=== PATIENT | male | born 1950 | race Caucasian/White ===

== ENCOUNTER → 2016-07-12 | Outpatient (CLI) | payer MEDICARE ==
[2016-07-12 08:51] LABS: Basophils # (A) 0.1 k/uL (0-0.2); Basophils % (A) 1 %; CH 30.7; CHCM 33.2; Eosinophils # (A) 0.4 k/uL (0-0.7); Eosinophils % (A) 6 %; HCT 34.2 % (39.0-53.0); HDW 2.42; HGB 11.3 gm/dL (13.0-17.5); Luc # (Auto) 0.12; Luc % (Auto) 2; Lymphocytes # (A) 1.5 k/uL (1.0-4.8); Lymphocytes % (A) 23 %; MCH 30.6 pg (25.0-35.0); MCHC 32.9 g/dL (31.0-37.0); MCV 92.9 fL (80.0-100.0); Mean Platelet Volume 7.3; Monocytes # (A) 0.4 k/uL (0-1.0); Monocytes % (A) 6 %; Neutrophils # (A) 4.1 k/uL (1.3-7.7); Neutrophils % (A) 62 %; RBC 3.69 m/uL (4.30-5.90); RDW 13.3 % (11.5-15.5); WBC 6.7 k/uL (3.8-10.6); WBC (Perox) 7.33
[2016-07-12 08:56] LABS: Appearance,Urine Clear (Clear); Bilirubin,Urine Negative (Negative); Glucose,Urine (UA) Negative (Negative); Ketones,Urine Negative (Negative); Leukocyte Esterase,Urine Negative (Negative); Nitrite,Urine Negative (Negative); Particle Count 676; Protein,Urine 2+ (Negative); Squamous Epithelial Cell,Urine <1 /hpf (0-4); UA Billing (MACRO vs. MICRO) MICRO; Urobilinogen,Urine <2.0 mg/dL (<2.0); WBC,Urine <1 /hpf (0-5)
[2016-07-12 13:35] LABS: Magnesium 2.1 mg/dL (1.6-2.3); Phosphorous 4.2 mg/dL (2.5-4.5); Potassium 4.5 mmol/L (3.5-5.1); Uric Acid 5.3 mg/dL (3.5-8.5)
[2016-07-12 13:45] LABS: % Iron Saturation 17.3 % (20-50)
== END ==
LOC: LABWHC1 08:00
PROVIDERS: ATTEND Nurse Practitioner Family
DX: N18.3 Chronic kidney disease, stage 3 (moderate) (principal); D64.9 Anemia, unspecified; E55.9 Vitamin D deficiency, unspecified; E21.3 Hyperparathyroidism, unspecified; M10.9 Gout, unspecified; N39.0 Urinary tract infection, site not specified
CPT/HCPCS: 36415; 80048; 81001; 82728; 83540; 83550; 83735; 83970; 84100; 84550; 85025

== ENCOUNTER → 2016-12-06 | Outpatient (CLI) | payer MEDICARE ==
[2016-12-06 08:46] LABS: Appearance,Urine Clear (Clear); Bacteria,Urine Rare /hpf; Bilirubin,Urine Negative (Negative); Glucose,Urine (UA) 1+ (Negative); Ketones,Urine Negative (Negative); Leukocyte Esterase,Urine Negative (Negative); Mucus,Urine Rare /hpf; Nitrite,Urine Negative (Negative); PH, Urine 5.5 (5.0-8.0); Particle Count 403; Protein,Urine 2+ (Negative); Specific Gravity,Urine 1.009 (1.001-1.035); UA Billing (MACRO vs. MICRO) MICRO; Urobilinogen,Urine <2.0 mg/dL (<2.0); WBC,Urine <1 /hpf (0-5)
[2016-12-06 08:58] LABS: Basophils # (A) 0.1 k/uL (0-0.2); Basophils % (A) 1 %; CH 31.2; CHCM 32.4; Eosinophils # (A) 0.4 k/uL (0-0.7); Eosinophils % (A) 7 %; HDW 2.36; HGB 12.2 gm/dL (13.0-17.5); Luc # (Auto) 0.14; Luc % (Auto) 3; Lymphocytes # (A) 1.3 k/uL (1.0-4.8); Lymphocytes % (A) 24 %; MCH 30.4 pg (25.0-35.0); MCHC 31.3 g/dL (31.0-37.0); Mean Platelet Volume 8.2; Monocytes # (A) 0.4 k/uL (0-1.0); Monocytes % (A) 8 %; Neutrophils # (A) 3.1 k/uL (1.3-7.7); Neutrophils % (A) 57 %; RBC 4.02 m/uL (4.30-5.90); RDW 13.7 % (11.5-15.5); WBC 5.5 k/uL (3.8-10.6); WBC (Perox) 5.94
[2016-12-06 10:22] LABS: Calcium 9.2 mg/dL (8.4-10.2); Phosphorous 3.7 mg/dL (2.5-4.5); Potassium 4.6 mmol/L (3.5-5.1); Uric Acid 5.7 mg/dL (3.5-8.5)
[2016-12-06 10:31] LABS: % Iron Saturation 28.9 % (20-50)
[2016-12-06 16:33] LABS: Urine Creatinine 53.2 mg/dL
== END | disposition home or self-care (01) ==
LOC: LABWHC1 08:11
PROVIDERS: ATTEND Nurse Practitioner Family
DX: N18.3 Chronic kidney disease, stage 3 (moderate) (principal); D64.9 Anemia, unspecified; E10.21 Type 1 diabetes mellitus with diabetic nephropathy; E55.9 Vitamin D deficiency, unspecified; E21.3 Hyperparathyroidism, unspecified; M10.9 Gout, unspecified; N39.0 Urinary tract infection, site not specified
CPT/HCPCS: 36415; 80048; 81001; 82043; 82306; 82570; 82728; 83540; 83550; 83735; 83970; 84100; 84550; 85025

== ENCOUNTER → 2017-04-12 | Outpatient (CLI) | payer MEDICARE ==
[2017-04-12 10:11] LABS: T4, Free (Free Thyroxine) 1.08 ng/dL (0.78-2.19)
[2017-04-12 18:40] LABS: Hemoglobin A1C 6.6 % (4.0-6.0)
== END | disposition home or self-care (01) ==
LOC: LABWHC1 08:53
PROVIDERS: ATTEND Internal Medicine
DX: E10.9 Type 1 diabetes mellitus without complications (principal)
CPT/HCPCS: 36415; 80061; 83036; 84439; 84443

== ENCOUNTER → 2017-06-12 | Outpatient (CLI) | payer MEDICARE ==
[2017-06-12 09:17] LABS: Phosphorus 3.9 mg/dL (2.5-4.5); Potassium 5.1 mmol/L (3.5-5.1); Uric Acid 5.5 mg/dL (3.5-8.5)
[2017-06-12 09:20] LABS: Basophils # (A) 0.1 k/uL (0-0.2); Basophils % (A) 1 %; Eosinophils # (A) 0.4 k/uL (0-0.7); Eosinophils % (A) 7 %; HCT 38.9 % (39.0-53.0); Lymphocytes # (A) 1.2 k/uL (1.0-4.8); Lymphocytes % (A) 20 %; MCH 29.8 pg (25.0-35.0); MCHC 30.8 g/dL (31.0-37.0); MCV 96.7 fL (80.0-100.0); Monocytes # (A) 0.4 k/uL (0-1.0); Monocytes % (A) 7 %; Neutrophils # (A) 3.7 k/uL (1.3-7.7); Neutrophils % (A) 63 %; Platelet Count 319 k/uL (150-450); RBC 4.02 m/uL (4.30-5.90); WBC 5.9 k/uL (3.8-10.6)
[2017-06-12 09:45] LABS: Appearance,Urine Clear (Clear); Bilirubin,Urine Negative (Negative); Blood,Urine Trace (Negative); Color,Urine Yellow; Glucose,Urine (UA) Negative (Negative); Ketones,Urine Negative (Negative); Leukocyte Esterase,Urine Negative (Negative); Protein,Urine 2+ (Negative); RBC,Urine <1 /hpf (0-5); Specific Gravity,Urine 1.013 (1.001-1.035); Urobilinogen,Urine <2.0 mg/dL (<2.0); WBC,Urine <1 /hpf (0-5)
[2017-06-12 11:39] LABS: Creatinine,Urine Random 102.9 mg/dL
[2017-06-12 17:06] LABS: Iron Saturation 16.42 (15.00-50.00)
[2017-06-12 17:53] LABS: Parathyroid Hormone Intact 69.9 pg/mL (14.0-72.0)
== END | disposition home or self-care (01) ==
LOC: LABWHC1 08:12
PROVIDERS: ATTEND Internal Medicine Nephrology
DX: N18.3 Chronic kidney disease, stage 3 (moderate) (principal); D50.9 Iron deficiency anemia, unspecified; E55.9 Vitamin D deficiency, unspecified; N25.81 Secondary hyperparathyroidism of renal origin; M10.9 Gout, unspecified; N39.0 Urinary tract infection, site not specified
CPT/HCPCS: 36415; 80048; 81001; 82306; 82570; 82728; 83540; 83550; 83735; 83970; 84100; 84156; 84550; 85025

== ENCOUNTER → 2017-06-26 | Outpatient (CLI) | payer MEDICARE ==
--- NOTE | 2017-06-26 16:05 | US ---
EXAMINATION TYPE: US kidneys/renal and bladder DATE OF EXAM: 06/26/2017 COMPARISON: NONE CLINICAL HISTORY: N18.3 CKD. CKD stage III EXAM MEASUREMENTS: Right Kidney: 10.4 x 4.3 x 4.3 cm Left Kidney: 10.2 x 4.3 x 4.0 cm Right Kidney: echogenic, thin renal cortex Left Kidney: echogenic, thin renal cortex Bladder: appears wnl Bilateral Jets seen: no There is no evidence for hydronephrosis at this point in time. No nephrolithiasis is seen. No kamila s are identified. The urinary bladder is anechoic. IMPRESSION: Sonographic sequela of medical renal disease as seen on the prior exam with no evidence of hydronephr osis, nephrolithiasis or focal renal mass.
== END | disposition home or self-care (01) ==
LOC: RADUSWWP 14:20
PROVIDERS: ATTEND Internal Medicine Nephrology
DX: N18.3 Chronic kidney disease, stage 3 (moderate) (principal)
CPT/HCPCS: 76770

== ENCOUNTER → 2017-09-18 | Outpatient (CLI) | payer MEDICARE ==
[2017-09-18 10:59] LABS: Calcium 8.9 mg/dL (8.4-10.2); Potassium 4.6 mmol/L (3.5-5.1)
== END | disposition home or self-care (01) ==
LOC: LABWHC1 10:22
PROVIDERS: ATTEND Nurse Practitioner Family
DX: N18.3 Chronic kidney disease, stage 3 (moderate) (principal)
CPT/HCPCS: 36415; 80048

== ENCOUNTER → 2017-12-06 | Outpatient (CLI) | payer MEDICARE ==
[2017-12-06 14:52] LABS: Basophils % (A) 1 %; Eosinophils # (A) 0.4 k/uL (0-0.7); Eosinophils % (A) 6 %; HCT 36.8 % (39.0-53.0); HGB 11.9 gm/dL (13.0-17.5); Lymphocytes # (A) 1.2 k/uL (1.0-4.8); Lymphocytes % (A) 19 %; MCHC 32.3 g/dL (31.0-37.0); MCV 96.1 fL (80.0-100.0); Mean Platelet Volume 7.1; Monocytes # (A) 0.4 k/uL (0-1.0); Monocytes % (A) 7 %; Neutrophils # (A) 4.3 k/uL (1.3-7.7); Neutrophils % (A) 67 %; Platelet Count 259 k/uL (150-450); RBC 3.83 m/uL (4.30-5.90); RDW 13.2 % (11.5-15.5); WBC 6.3 k/uL (3.8-10.6)
[2017-12-06 14:57] LABS: Amorphous Sediment,Urine Rare /hpf; Appearance,Urine Clear (Clear); Bilirubin,Urine Negative (Negative); Blood,Urine Negative (Negative); Color,Urine Yellow; Glucose,Urine (UA) Negative (Negative); Hyaline Casts,Urine 18 /lpf (0-2); Ketones,Urine Negative (Negative); Leukocyte Esterase,Urine Negative (Negative); Mucus,Urine Rare /hpf; Nitrite,Urine Negative (Negative); Protein,Urine 3+ (Negative); RBC,Urine 1 /hpf (0-5); Specific Gravity,Urine 1.016 (1.001-1.035); Urobilinogen,Urine <2.0 mg/dL (<2.0); WBC,Urine 1 /hpf (0-5)
[2017-12-06 15:04] LABS: Magnesium 2.2 mg/dL (1.6-2.3); Phosphorus 4.2 mg/dL (2.5-4.5); Potassium 4.3 mmol/L (3.5-5.1); Uric Acid 5.8 mg/dL (3.5-8.5)
[2017-12-06 20:10] LABS: Parathyroid Hormone Intact 55.8 pg/mL (14.0-72.0)
[2017-12-06 20:51] LABS: Iron Saturation 30.33 (15.00-50.00)
[2017-12-06 20:58] LABS: Vitamin D 25 Hydroxy 31.4 ng/mL (30.0-100.0)
== END | disposition home or self-care (01) ==
LOC: LABWHC1 14:03
PROVIDERS: ATTEND Nurse Practitioner Family
DX: N18.3 Chronic kidney disease, stage 3 (moderate) (principal); D64.9 Anemia, unspecified; E55.9 Vitamin D deficiency, unspecified; E21.3 Hyperparathyroidism, unspecified; M10.9 Gout, unspecified; N39.0 Urinary tract infection, site not specified
CPT/HCPCS: 36415; 80048; 81001; 82306; 82728; 83540; 83550; 83735; 83970; 84100; 84550; 85025

== ENCOUNTER → 2018-04-30 | Outpatient (CLI) | payer MEDICARE ==
[2018-04-30 17:29] LABS: Albumin 3.7 g/dL (3.80-4.90); Albumin/Globulin Ratio 1.76 (1.20-2.10); Anion Gap 8.3 mmol/L (4.00-12.00); Calcium 8.7 mg/dL (8.7-10.3); Carbon Dioxide 26.7 mmol/L (21.6-31.8); Globulin 2.1 g/dL (1.6-3.3); Potassium 4.9 mmol/L (3.5-5.5); Total Bilirubin 0.5 mg/dL (0.2-1.2); Total Protein 5.8 g/dL (6.2-8.2)
[2018-04-30 18:18] LABS: Hemoglobin A1C 7.1 % (4.0-6.0)
== END | disposition home or self-care (01) ==
LOC: LABWHC1 08:31
PROVIDERS: ATTEND Internal Medicine
DX: E78.5 Hyperlipidemia, unspecified (principal); E10.9 Type 1 diabetes mellitus without complications
CPT/HCPCS: 36415; 80053; 82043; 82570; 83036

== ENCOUNTER → 2020-07-30 | Outpatient (CLI) | payer MEDICARE ==
--- NOTE | 2020-07-30 15:52 | XR ---
EXAMINATION TYPE: XR skull complete DATE OF EXAM: 07/30/2020 COMPARISON: NONE HISTORY: MRI clearance. Exclude metallic foreign body. TECHNIQUE: 4 view skull including both lateral projections FINDINGS: No metallic intracranial foreign body identified to prevent MRI study. IMPRESSION: As above.
[2020-07-30 16:37] LABS: Basophils # (A) 0.1 k/uL (0-0.2); Basophils % (A) 1 %; Eosinophils # (A) 0.4 k/uL (0-0.7); Eosinophils % (A) 7 %; HCT 33.6 % (39.0-53.0); HGB 11.2 gm/dL (13.0-17.5); Lymphocytes # (A) 1.2 k/uL (1.0-4.8); Lymphocytes % (A) 19 %; MCHC 33.2 g/dL (31.0-37.0); MCV 96.2 fL (80.0-100.0); Mean Platelet Volume 7.4; Monocytes # (A) 0.5 k/uL (0-1.0); Monocytes % (A) 8 %; Neutrophils # (A) 4.3 k/uL (1.3-7.7); Neutrophils % (A) 65 %; Platelet Count 365 k/uL (150-450); RBC 3.49 m/uL (4.30-5.90); RDW 13.2 % (11.5-15.5); WBC 6.5 k/uL (3.8-10.6)
[2020-07-30 16:39] LABS: Appearance,Urine Clear (Clear); Bilirubin,Urine Negative (Negative); Blood,Urine Trace (Negative); Color,Urine Light Yellow; Glucose,Urine (UA) Trace (Negative); Ketones,Urine Negative (Negative); Leukocyte Esterase,Urine Negative (Negative); Nitrite,Urine Negative (Negative); Protein,Urine 2+ (Negative); RBC,Urine <1 /hpf (0-5); Specific Gravity,Urine 1.012 (1.001-1.035); Urobilinogen,Urine <2.0 mg/dL (<2.0); WBC,Urine 1 /hpf (0-5)
[2020-07-30 16:49] LABS: Bilirubin,Unconjugated 0.3 mg/dL (0.0-1.1); Calcium 8.4 mg/dL (8.4-10.2); Magnesium 2.2 mg/dL (1.6-2.3); Phosphorus 4.7 mg/dL (2.5-4.5); Potassium 5.6 mmol/L (3.5-5.1); Total Bilirubin 0.3 mg/dL (0.2-1.3); Total Protein 5.9 g/dL (6.3-8.2); Uric Acid 5.7 mg/dL (3.5-8.5)
[2020-07-30 17:34] LABS: Protein/Creatinine Ratio,Urine 10.59
[2020-07-31 02:42] LABS: Scleroderma SC-70 Ab <0.2 AI
--- NOTE | 2020-07-31 12:00 | MR ---
MR brain without contrast HISTORY: Mental status changes, R 41.82 Multiplanar multisequence imaging through the brain, no comparisons There is no restricted diffusion. Cortical atrophy is present. There is no hemorrhage or hydrocephalu s. Inflammatory changes are present in the bilateral maxillary sinuses, ethmoid air cells. Orbits estelle w symmetric appearance. Confluent hyperintensities present on inversion recovery T2-weighted sequence s in the periventricular location. Corpus callosum, pituitary, cervical medullary junction, cerebello pontine angles are within normal limits. Small chronic lacunar infarct present at the level the head of the caudate on the right. IMPRESSION: Age-related changes of atrophy and probable chronic small vessel ischemia. Sinus disease.
[2020-07-31 13:57] LABS: % Iron Saturation 31.42 (15.00-50.00)
== END ==
LOC: RADMRIMAIN 14:48
PROVIDERS: ATTEND Psychiatry & Neurology Neurology
DX: G31.9 Degenerative disease of nervous system, unspecified (principal)
CPT/HCPCS: 36415; 70260; 70551; 80048; 80076; 81001; 82306; 82570; 82607; 82728; 83540; 83550; 83735; 83970; 84100; 84156; 84550; 85025; 86038; 86235

== ENCOUNTER → 2020-09-21 | Outpatient (CLI) | payer MEDICARE ==
[2020-09-22 02:49] LABS: African American GFR (CKD) 16.7 (60.0-200.0); Anion Gap 6.4 mmol/L (4.00-12.00); BUN/Creat Ratio 14.36 Ratio (12.00-20.00); Calcium 7.8 mg/dL (8.7-10.3); Carbon Dioxide 25.6 mmol/L (21.6-31.8); Magnesium 2.2 mg/dL (1.5-2.4); Non-African American GFR(CKD) 14.4 (60.0-200.0); Potassium 5.8 mmol/L (3.5-5.5)
== END | disposition home or self-care (01) ==
LOC: LABWHC1 15:00
PROVIDERS: ATTEND Nurse Practitioner Family
DX: N18.4 Chronic kidney disease, stage 4 (severe) (principal)
CPT/HCPCS: 36415; 80048; 83735

== ENCOUNTER → 2020-11-30 | Outpatient (CLI) | payer MEDICARE ==
[2020-11-30 12:43] LABS: Basophils # (A) 0.1 k/uL (0-0.2); Basophils % (A) 1 %; Eosinophils # (A) 0.7 k/uL (0-0.7); Eosinophils % (A) 12 %; HCT 33.9 % (39.0-53.0); HGB 10.9 gm/dL (13.0-17.5); Lymphocytes # (A) 1.1 k/uL (1.0-4.8); Lymphocytes % (A) 20 %; MCH 31.2 pg (25.0-35.0); MCV 97.5 fL (80.0-100.0); Mean Platelet Volume 8.2; Monocytes # (A) 0.4 k/uL (0-1.0); Monocytes % (A) 7 %; Neutrophils # (A) 3.4 k/uL (1.3-7.7); Neutrophils % (A) 59 %; Platelet Count 251 k/uL (150-450); RBC 3.48 m/uL (4.30-5.90); RDW 13.2 % (11.5-15.5); WBC 5.8 k/uL (3.8-10.6)
[2020-11-30 12:59] LABS: Potassium 5.5 mmol/L (3.5-5.1)
== END | disposition home or self-care (01) ==
LOC: LABPAT 11:32
PROVIDERS: ATTEND Surgery
DX: Z01.812 Encounter for preprocedural laboratory examination (principal); N18.6 End stage renal disease
CPT/HCPCS: 36415; 80051; 82565; 84520; 85025

== ENCOUNTER 2020-12-02 08:17 | Day surgery (SDC) | payer MEDICARE ==
[2020-12-01 10:59] VITALS: BMI 21.4
[~2020-12-02 08:17] MED LIST: DEXAMETHASONE SOD PHOSPHATE 4 MG/ML 1 ML VIAL IV ONE; HYDROmorphone 0.5 MG/0.5 ML SYRINGE IVP PRN; LACTATED RINGERS 1,000 ML IV SCH; ONDANSETRON 4 MG/2 ML VIAL IVP ONE
[2020-12-02 08:53] LABS: Glucose,Whole Blood 103 mg/dL (75-99)
[2020-12-02 08:55] VITALS: RESP 16; TEMP 97.6
[2020-12-02] MEDS ORDERED: LIDOCAINE 1% (10MG/ML) FOR IV START INTRADERMA ONE (08:58)
[2020-12-02] MEDS ORDERED: MIDAZOLAM 2 MG/2 ML VIAL IV ONE (09:55)
--- NOTE | 2020-12-02 10:21 | P.ANPRN ---
Procedure Note - Anesthesia - Nerve Block Performed Left Suprascapular Nerve Block Single Time Out Performed: Yes ([id number]) Date of Procedure: 12/02/20 Procedure Start Time: :53 Procedure Stop Time: 10:15 Location of Patient: PreOp Indication: Acute Post-Operative Pain, Dx/Pain Location Sedation Type: Sedate with meaningful contact maintained Preparation: Sterile Prep Position: Supine Catheter: None Needle Types: Pajunk Needle Gauge: 21 Ultrasound used to visualize needle placement: Yes Ultrasound used to observe medication spread: Yes Injectate: 0.5% Ropivacaine (see comment for volume) (30 mL) Blood Aspirated: No Pain Paresthesia on Injection Noted: No Resistance on Injection: Normal Image Stored and Saved: Yes Events: Uneventful and Well Tolerated
[2020-12-02] MEDS ORDERED: HEPARIN SODIUM,PORCINE 5,000 UNIT/ML 1 ML VIAL ONE (10:29)
[2020-12-02] MEDS ORDERED: PROPOFOL 10 MG/ML 20 ML VIAL IV ONE (10:29)
[2020-12-02] MEDS ORDERED: ROPIVACAINE 5 MG/ML 30 ML VIAL ONE (10:29)
[2020-12-02] MEDS ORDERED: MIDAZOLAM 2 MG/2 ML VIAL ONE (10:29)
[2020-12-02] MEDS ORDERED: fentaNYL (PF) 50 MCG/ML 2 ML AMP ONE (10:29)
--- NOTE | 2020-12-02 12:01 | P.OP ---
Date of Procedure: 12/02/20 Preoperative Diagnosis: Chronic renal failure Postoperative Diagnosis: Same Procedure(s) Performed: Left upper extremity radiocephalic Beth fistula creation Anesthesia: regional Surgeon: Donnie Brenner Estimated Blood Loss (ml): 5 Pathology: none sent Condition: stable Disposition: PACU Indications for Procedure: 70-year-old gentleman with history of chronic kidney disease presents to the operating room for creation of left upper extremity fistula. He underwent vein mapping which demonstrated good large cephalic vein at the wrist and therefore we will attempt a Beth fistula. Operative Findings: Radial artery is slightly calcified but patent Description of Procedure: After written and informed consent was obtained from the patient the patient was brought to the operative suite and laid in a supine position. The left arm was prepped and draped in the usual sterile fashion after appropriate anesthesia was performed per the anesthesiologist. Utilizing ultrasound the cephalic vein was visualized and marked and shown to be good size. A small vertical incision was then created with a 15 blade scalpel just proximal to the wrist and dissection was carried down to the radial artery which was dissected free in a c ircumferential manner. Proximal distal control was then obtained with vessel loops. Attention was then placed back to the cephalic vein which was located and dissected free in a circumferential manner distally to the wrist. At the wrist it was ligated with silk suture. Further dissection was carried around the vein and the vein was brought over to the radial artery. Serial dilation was then performed on the vein and good backbleeding was noted. Patient was administered 3000 units of heparin and the radial artery was clamped at the proximal and distal aspect. Utilizing 11 blade scalpel and arteriotomy was created and extended with Pott Sánchez scissors. There was good brisk backbleeding noted from the radial artery and pulsatile blood flow visualized from the proximal aspect. The vein was then spatulated and an end-to-side anastomosis was created with a 6-0 Prolene suture. Prior to last sutures being placed the control was released from the vein revealing good backbleeding and d istal control on the radial artery was released revealing good back flow. The proximal control was then released and good pulsatile blood flow was visualized in the fistula and final sutures were secured. The area was copiously irrigated with antibiotic solution. Hemostasis was assured. The vessels were then interrogated with Doppler which demonstrated good multiphasic signal distal to the anastomosis as well as positive bruit within the vein consistent with good fistula creation. Under ultrasound there was pulsatile flow noted in the cephalic vein. The incision was then closed in a multilayer fashion. The skin was cleansed and dressings were placed. Patient does procedure well and was sent to PACU for recovery. Plan - Discharge Summary Discharge Rx Participant: No New Discharge Prescriptions: No Action Insulin Aspart (For Pump) [NovoLOG (For Pump)] 0.01 unit SQ-PUMP CONTINUOUS Furosemide [Lasix] 40 mg PO DAILY Carvedilol [Coreg] 6.25 mg PO BID Ergocalciferol [Vitamin D2 (1250 Mcg = 11952 Iu)] 1,250 mcg PO SALMERON Calcium Acetate [Phoslo] 667 mg PO TID Atorvastatin [Lipitor] 10 mg PO DAILY Ferrous Sulfate [Iron] 325 mg PO DAILY Discharge Medication List Atorvastatin [Lipitor] 10 mg PO DAILY 12/01/20 [History] Calcium Acetate [Phoslo] 667 mg PO TID 12/01/20 [History] Carvedilol [Coreg] 6.25 mg PO BID 12/01/20 [History] Ergocalciferol [Vitamin D2 (1250 Mcg = 90450 Iu)] 1,250 mcg PO SALMERON 12/01/20 [History] Ferrous Sulfate [Iron] 325 mg PO DAILY 12/01/20 [History] Furosemide [Lasix] 40 mg PO DAILY 12/01/20 [History] Insulin Aspart (For Pump) [NovoLOG (For Pump)] 0.01 unit SQ-PUMP CONTINUOUS 12/01/20 [History]
[2020-12-02 12:37] VITALS: BP 163/75; PULSE 63
[2020-12-02 13:05] LABS: Glucose,Whole Blood 179 mg/dL (75-99)
== END 2020-12-02 13:11 | disposition home or self-care (01) ==
LOC: OR 08:17
PROVIDERS: ATTEND Surgery
DX: I12.9 Hypertensive chronic kidney disease with stage 1 through stage 4 chronic kidney disease, or unspecified chronic kidney disease (principal); E10.22 Type 1 diabetes mellitus with diabetic chronic kidney disease; N18.4 Chronic kidney disease, stage 4 (severe); Z79.4 Long term (current) use of insulin; E78.5 Hyperlipidemia, unspecified; Z79.899 Other long term (current) drug therapy
CPT/HCPCS: 36821; 64415; 76942; 84132; J2250; J1644; J1100; J0690; J2405; J3010; J2795; J2704

== ENCOUNTER 2021-02-08 09:15 | Day surgery (SDC) | payer MEDICARE ==
[2021-02-04 09:53] VITALS: BMI 21.8
[~2021-02-08 09:15] MED LIST changes: -DEXAMETHASONE SOD PHOSPHATE 4 MG/ML 1 ML VIAL IV ONE; -HYDROmorphone 0.5 MG/0.5 ML SYRINGE IVP PRN; +LIDOCAINE 1% (10MG/ML) FOR IV START INTRADERMA PRN; -ONDANSETRON 4 MG/2 ML VIAL IVP ONE; +fentaNYL (PF) 50 MCG/ML 2 ML AMP IV PRN
[2021-02-08 09:48] LABS: Glucose,Whole Blood 233 mg/dL (75-99)
[2021-02-08] MEDS ORDERED: hydrALAZINE HCL 20 MG/ML 1 ML VIAL IVP ONE (09:52)
--- NOTE | 2021-02-08 12:25 | P.GSHP ---
History of Present Illness H&P Date: 02/08/21 Chief Complaint: CKD 70-year-old gentleman with history of chronic kidney disease with previous left upper extremity Beth fistula creation which thrombosed approximately a month after procedure presents today hospital today for another arteriovenous fistula creation. Denies any fevers, chills, chest pain from his breath. - Review of Systems All systems: negative (what is mentioned in HPI or past medical history) Past Medical History Past Medical History: Cancer, Diabetes Mellitus, Hyperlipidemia, Hypertension, Osteoarthritis (OA), Renal Disease Additional Past Medical History / Comment(s): skin CA History of Any Multi-Drug Resistant Organisms: None Reported Past Surgical History: Adenoidectomy, Cholecystectomy, Tonsillectomy Additional Past Surgical History / Comment(s): skin CA,collette cataracts. Past Anesthesia/Blood Transfusion Reactions: No Reported Reaction Additional Past Anesthesia/Blood Transfusion Reaction / Comment(s): no hx blood transfusion Smoking Status: Never smoker - Past Family History Father Family Medical History: CVA/TIA, Hypertension Mother Family Medical History: No Reported History Sister(s) Family Medical History: Cancer Medications and Allergies Home Medications Medication Instructions Recorded Confirmed Type Atorvastatin [Lipitor] 10 mg PO DAILY 12/01/20 02/08/21 History Calcium Acetate [Phoslo] 667 mg PO TID 12/01/20 02/08/21 History Carvedilol [Coreg] 6.25 mg PO BID 12/01/20 02/08/21 History Ergocalciferol [Vitamin D2 (1250 1,250 mcg PO SALMERON 12/01/20 02/08/21 History Mcg = 89778 Iu)] Ferrous Sulfate [Iron] 325 mg PO DAILY 12/01/20 02/08/21 History Furosemide [Lasix] 40 mg PO DAILY 12/01/20 02/08/21 History Insulin Aspart (For Pump) [NovoLOG 0.01 unit SQ-PUMP CONTINUOUS 12/01/20 02/08/21 History (For Pump)] Allergies Allergy/AdvReac Type Severity Reaction Status Date / Time No Known Allergies Allergy Verified 02/04/21 09:37 Surgical - Exam Vital Signs Temp Pulse Resp BP Pulse Ox 97.3 F L 64 16 208/93 99 02/08/21 09:29 02/08/21 09:29 02/08/21 09:29 02/08/21 09:29 02/08/21 09:29 Palpable left radial pulse - General well developed, well nourished, no distress - Eyes PERRL, normal ocular movement - ENT normal pinna, normal nares - Neck no masses, no bruits - Respiratory normal expansion, normal respiratory effort - Cardiovascular Rhythm: regular - Abdomen Abdomen: soft, non tender - Integumentary no rash, no growths - Neurologic normal coordination, normal sensation - Musculoskeletal normal gait - Psychiatric oriented to time, oriented to person, oriented to place, speech is normal Results - Labs Abnormal Lab Results - Last 24 Hours (Table) 02/08/21 Range/Units 09:46 POC Glucose (mg/dL) 233 H (75-99) mg/dL Assessment and Plan Assessment: Chronic kidney disease Previous left upper extremity arteriovenous fistula thrombosis Plan: Patient to be taken to the operating room for left upper extremity arteriovenous fistula creation at the elbow
[2021-02-08] MEDS ORDERED: SUCCINYLCHOLINE CHLORIDE 100 MG/5 ML SYR IV ONE (12:31)
[2021-02-08] MEDS ORDERED: MIDAZOLAM 2 MG/2 ML VIAL ONE (12:31)
[2021-02-08] MEDS ORDERED: fentaNYL (PF) 50 MCG/ML 2 ML AMP ONE (12:31)
[2021-02-08] MEDS ORDERED: LIDOCAINE 1% INJ 10MG/ML (20 ML MDV) ONE (12:31)
[2021-02-08] MEDS ORDERED: PROPOFOL 10 MG/ML 20 ML VIAL IV ONE (12:31)
[2021-02-08] MEDS ORDERED: ceFAZolin 2,000 MG in SODIUM CHLORIDE 0.9% 500 ML IRRIGATION ONE (12:58)
[2021-02-08] MEDS ORDERED: THROMBIN (BOVINE) 5,000 UNIT VIAL TOPICAL ONE (12:58)
[2021-02-08] MEDS ORDERED: GELATIN SPONGE,ABSORB (SMALL) 1 EACH SPONGE TOPICAL ONE (12:58)
[2021-02-08] MEDS ORDERED: HEPARIN SODIUM,PORCINE 2,000 UNIT in SODIUM CHLORIDE 0.9% 500 ML 500 ML IRRIGATION ONE (12:58)
[2021-02-08] MEDS ORDERED: LIDOCAINE 1% INJ 10MG/ML (20 ML MDV) SQ ONE ×2 (12:58)
[2021-02-08 14:24] VITALS: TEMP 96.8
[2021-02-08 14:39] VITALS: RESP 16
--- NOTE | 2021-02-08 14:43 | P.OP ---
Date of Procedure: 02/08/21 Preoperative Diagnosis: CKD Postoperative Diagnosis: CKD Procedure(s) Performed: Left upper extremity brachial-cephalic fistula creation Anesthesia: ALYSIA, local Surgeon: Donnie Brenner Estimated Blood Loss (ml): 20 Pathology: none sent Condition: stable Disposition: PACU Indications for Procedure: 70 year old male with history of CKD with previous left upper extremity drew fistula in the wrist which failed. He presents to the hospital for another fistula creation above the elbow. Description of Procedure: After written and informed consent was obtained from the patient the patient was brought to the operative suite and laid in a supine position. The left arm was prepped and draped in the usual sterile fashion after appropriate anesthesia was performed per the anesthesiologist. Utilizing ultrasound the cephalic vein was visualized and marked and shown to be good size. A horizontal incision was then created with a 15 blade scalpel just proximal to the elbow and dissection was carried down to the brachial artery which was dissected free in a circumferential manner. Proximal distal control was then obtained with vessel loops. Attention was then placed back to the cephalic vein which was located and dissected free in a circumferential manner just distal to the elbow. It was then ligated with silk suture. Further dissection was carried around the vein and the vein was brought over to the brachial artery. Serial dilation was then performed on the vein and good backbleeding was noted. Utilizing 11 blade scalpel an arteriotomy was created and extended with Pott Sánchez scissors. There was good brisk backbleeding noted from the brachial artery and pulsatile blood flow visualized from the proximal aspect. The vein was then spatulated and an end-to-side anastomosis was created with a 6-0 Prolene suture. Prior to last sutures being placed the control was released from the vein revealing good backbleeding and distal control on the brachial artery was released revealing good back flow. The proximal control was then released and good pulsatile blood flow was visualized in the fistula and final sutures were secured. The area was copiously irrigated with antibiotic solution. Hemostasis was assured. The vessels were then interrogated with Doppler which demonstrated good multiphasic signal distal to the anastomosis as well as positive bruit within the vein consistent with good fistula creation extending up to the shoulder. Under ultrasound there was pulsatile flow noted in the cephalic vein. The incision was then closed in a multilayer fashion. The skin was cleansed and dressings were placed. Patient does procedure well and was sent to PACU for recovery. Plan - Discharge Summary Discharge Rx Participant: No New Discharge Prescriptions: No Action Insulin Aspart (For Pump) [NovoLOG (For Pump)] 0.01 unit SQ-PUMP CONTINUOUS Furosemide [Lasix] 40 mg PO DAILY Carvedilol [Coreg] 6.25 mg PO BID Ergocalciferol [Vitamin D2 (1250 Mcg = 32678 Iu)] 1,250 mcg PO SALMERON Calcium Acetate [Phoslo] 667 mg PO TID Atorvastatin [Lipitor] 10 mg PO DAILY Ferrous Sulfate [Iron] 325 mg PO DAILY Discharge Medication List Atorvastatin [Lipitor] 10 mg PO DAILY 12/01/20 [History] Calcium Acetate [Phoslo] 667 mg PO TID 12/01/20 [History] Carvedilol [Coreg] 6.25 mg PO BID 12/01/20 [History] Ergocalciferol [Vitamin D2 (1250 Mcg = 30518 Iu)] 1,250 mcg PO SALMERON 12/01/20 [History] Ferrous Sulfate [Iron] 325 mg PO DAILY 12/01/20 [History] Furosemide [Lasix] 40 mg PO DAILY 12/01/20 [History] Insulin Aspart (For Pump) [NovoLOG (For Pump)] 0.01 unit SQ-PUMP CONTINUOUS 12/01/20 [History] Follow up Appointment(s)/Referral(s): Donnie Brenner DO [STAFF PHYSICIAN] - 2 Weeks Discharge Disposition: HOME SELF-CARE
[2021-02-08 14:50] VITALS: PULSE 64
[2021-02-08 14:50] LABS: Glucose,Whole Blood 316 mg/dL (75-99)
[2021-02-08 15:02] VITALS: BP 152/64
[2021-02-08] MEDS ORDERED: INSULIN ASPART (NovoLOG) 100 UNIT/ML VIAL SQ ONE (15:10)
== END 2021-02-08 15:34 | disposition home or self-care (01) ==
LOC: OR 09:15
PROVIDERS: ATTEND Surgery
DX: I12.9 Hypertensive chronic kidney disease with stage 1 through stage 4 chronic kidney disease, or unspecified chronic kidney disease (principal); E11.22 Type 2 diabetes mellitus with diabetic chronic kidney disease; N18.9 Chronic kidney disease, unspecified; E78.5 Hyperlipidemia, unspecified; M19.90 Unspecified osteoarthritis, unspecified site; Z85.828 Personal history of other malignant neoplasm of skin; Z90.49 Acquired absence of other specified parts of digestive tract; Z98.890 Other specified postprocedural states; Z98.42 Cataract extraction status, left eye; Z98.41 Cataract extraction status, right eye; Z82.3 Family history of stroke; Z82.49 Family history of ischemic heart disease and other diseases of the circulatory system; Z80.9 Family history of malignant neoplasm, unspecified; Z79.4 Long term (current) use of insulin; Z79.899 Other long term (current) drug therapy
CPT/HCPCS: 36821; J0360; J1644; J0690 ×2; J2001

== ENCOUNTER → 2021-03-16 | Outpatient (CLI) | payer MEDICARE ==
[2021-03-17 02:16] LABS: HCT 34.3 % (39.6-50.0); HGB 10.5 g/dL (13.0-17.0); MCH 30.4 pg (27.0-32.0); MCHC 30.6 g/dL (32.0-37.0); MCV 99.4 fL (80.0-97.0); Mean Platelet Volume 10.8 fL (9.5-12.2); Platelet Count 310 X 10*3/uL (140-440); RBC 3.45 X 10*6/uL (4.40-5.60); RDW 14.1 % (11.5-14.5); WBC 8.22 X 10*3/uL (4.50-10.00)
[2021-03-17 08:20] LABS: % Iron Saturation 5.23 (15.00-50.00); ALT 30 U/L (10-49); AST 29 U/L (14-35); African American GFR (CKD) 11.2 (60.0-200.0); Albumin 3.3 g/dL (3.8-4.9); Albumin/Globulin Ratio 1.22 (1.60-3.17); Alkaline Phosphatase 67 U/L (41-126); BUN/Creat Ratio 12.39 Ratio (12.00-20.00); Blood Urea Nitrogen 66.9 mg/dL (9.0-27.0); Calcium 8.5 mg/dL (8.7-10.3); Chloride 111 mmol/L (96-109); Globulin 2.7 g/dL (1.6-3.3); Glucose 78 mg/dL (70-110); Iron 13 ug/dL (65-175); Non-African American GFR(CKD) 9.7 (60.0-200.0); Phosphorus 4.9 mg/dL (2.4-5.1); Potassium 5.1 mmol/L (3.5-5.5); Sodium 148 mmol/L (135-145); Total Bilirubin <0.20 mg/dL (0.30-1.20); Total Iron Binding Capacity 241 ug/dL (228-460)
== END | disposition home or self-care (01) ==
LOC: LABWHC1 15:19
PROVIDERS: ATTEND Nurse Practitioner Family
DX: D64.9 Anemia, unspecified (principal); E55.9 Vitamin D deficiency, unspecified; N25.81 Secondary hyperparathyroidism of renal origin; N18.4 Chronic kidney disease, stage 4 (severe)
CPT/HCPCS: 36415; 80053; 82306; 82728; 83540; 83550; 83735; 83970; 84100; 85027

== ENCOUNTER 2021-03-25 15:57 | Inpatient (IN) | payer MEDICARE ==
--- NOTE | 2021-03-25 17:05 | ED ---
General Adult HPI - General Chief complaint: Fall Stated complaint: Fall-Hip Injury Time Seen by Provider: 03/25/21 16:45 Source: patient, RN notes reviewed, old records reviewed Mode of arrival: wheelchair Limitations: no limitations - History of Present Illness Initial comments: This is a 71-year-old male who presents emergency department stating that he slipped and fell onto his right hip and ever since then he's been unable to ambulate. Patient states it's causing him quite a bit of pain with any kind of movement. Patient denies hitting his head or neck. Patient denies any back pain. Patient denies any upper extremity pain. Patient denies any chest pain or abdominal pain. Patient only complains of right hip pain. Patient states at no time he has shortness of breath or difficulty breathing or fever. - Related Data Home Medications Medication Instructions Recorded Confirmed Calcium Acetate [Phoslo] 667 mg PO TID-W/MEALS 12/01/20 03/25/21 Carvedilol [Coreg] 6.25 mg PO BID 12/01/20 03/25/21 Ergocalciferol [Vitamin D2 (1250 1,250 mcg PO SALMERON 12/01/20 03/25/21 Mcg = 44244 Iu)] Ferrous Sulfate [Iron] 325 mg PO DAILY 12/01/20 03/25/21 Furosemide [Lasix] 40 mg PO DAILY 12/01/20 03/25/21 Insulin Aspart (For Pump) [NovoLOG 0.01 unit SQ-PUMP CONTINUOUS 12/01/20 03/25/21 (For Pump)] Allergies Allergy/AdvReac Type Severity Reaction Status Date / Time No Known Allergies Allergy Verified 03/25/21 17:57 Review of Systems ROS Statement: Those systems with pertinent positive or pertinent negative responses have been documented in the HPI. ROS Other: All systems not noted in ROS Statement are negative. Past Medical History Past Medical History: Cancer, Diabetes Mellitus, Hyperlipidemia, Hypertension, Osteoarthritis (OA), Renal Disease Additional Past Medical History / Comment(s): skin CA, History of Any Multi-Drug Resistant Organisms: None Reported Past Surgical History: Adenoidectomy, Cholecystectomy, Tonsillectomy Additional Past Surgical History / Comment(s): skin CA,collette cataracts. fistula on left arm Past Anesthesia/Blood Transfusion Reactions: No Reported Reaction Additional Past Anesthesia/Blood Transfusion Reaction / Comment(s): no hx blood transfusion Past Psychological History: No Psychological Hx Reported Smoking Status: Never smoker Past Alcohol Use History: None Reported Past Drug Use History: None Reported - Past Family History Father Family Medical History: CVA/TIA, Hypertension Mother Family Medical History: No Reported History Sister(s) Family Medical History: Cancer General Exam - General Exam Comments Initial Comments: GENERAL: Patient is well-developed and well-nourished. Patient is nontoxic and well- hydrated and is in mild distress. ENT: Neck is soft and supple. No significant lymphadenopathy is noted. Oropharynx is clear. Moist mucous membranes. Neck has full range of motion without eliciting any pain. EYES: The sclera were anicteric and conjunctiva were pink and moist. Extraocular movements were intact and pupils were equal round and reactive to light. Eyelids were unremarkable. PULMONARY: Unlabored respirations. Good breath sounds bilaterally. No audible rales rhonchi or wheezing was noted. CARDIOVASCULAR: There is a regular rate and rhythm without any murmurs gallops or rubs. ABDOMEN: Soft and nontender with normal bowel sounds. SKIN: Skin is clear with no lesions or rashes and otherwise unremarkable. NEUROLOGIC: Patient is alert and oriented x3. Cranial nerves II through XII are grossly intact. Motor and sensory are also intact. Normal speech, volume and content. Symmetrical smile. MUSCULOSKELETAL: Patient has pain on the lateral aspect of that also with any kind of hip flexion or rotation causes pain in the hip. LYMPHATICS: No significant lymphadenopathy is noted PSYCHIATRIC: Normal psychiatric evaluation. Limitations: no limitations Course Vital Signs 03/25/21 16:06 Temperature 98.2 F Pulse Rate 77 Respiratory 18 Rate Blood Pressure 224/87 O2 Sat by Pulse 99 Oximetry Medical Decision Making - Medical Decision Making Right femoral neck fracture. I spoke with Dr. Salvador and she agreed to admit the patient admitted the patient wrote admitting orders I consulted the primary medical care doctor for medical management else, nephrology for the renal failure. EKG shows sinus rhythm with occasional PVC at 82 bpm MO interval 240 QRS is 78 QT interval 392 QTC is 457. Patient's EKG shows multiple PVCs no ST segment elevation or depression is noted. - Lab Data Result diagrams: 03/25/21 18:00 03/25/21 18:00 Lab Results 12/16/21 12/16/21 12/16/21 Range/Units 18:00 18:00 18:00 WBC 11.3 H (3.8-10.6) k/uL RBC 3.88 L (4.30-5.90) m/uL Hgb 11.9 L (13.0-17.5) gm/dL Hct 37.8 L (39.0-53.0) % MCV 97.5 (80.0-100.0) fL MCH 30.6 (25.0-35.0) pg MCHC 31.4 (31.0-37.0) g/dL RDW 13.6 (11.5-15.5) % Plt Count 412 (150-450) k/uL MPV 8.1 Neutrophils % 88 % Lymphocytes % 6 % Monocytes % 5 % Eosinophils % 0 % Basophils % 0 % Neutrophils # 9.9 H (1.3-7.7) k/uL Lymphocytes # 0.7 L (1.0-4.8) k/uL Monocytes # 0.5 (0-1.0) k/uL Eosinophils # 0.1 (0-0.7) k/uL Basophils # 0.0 (0-0.2) k/uL Hypochromasia Slight PT 10.1 (9.0-12.0) sec INR 0.9 (<1.2) APTT 23.6 (22.0-30.0) sec Sodium 141 (137-145) mmol/L Potassium 5.9 H (3.5-5.1) mmol/L Chloride 111 H (98-107) mmol/L Carbon Dioxide 21 L (22-30) mmol/L Anion Gap 9 mmol/L BUN 69 H (9-20) mg/dL Creatinine 5.50 H (0.66-1.25) mg/dL Est GFR (CKD-EPI)AfAm 11 (>60 ml/min/1.73 sqM) Est GFR (CKD-EPI)NonAf 9 (>60 ml/min/1.73 sqM) Glucose 147 H (74-99) mg/dL POC Glucose (mg/dL) (75-99) mg/dL POC Glu Defensive Driving Instructor ID Calcium 8.3 L (8.4-10.2) mg/dL Total Bilirubin 0.3 (0.2-1.3) mg/dL AST 37 (17-59) U/L ALT 40 (4-49) U/L Alkaline Phosphatase 78 (38-126) U/L Total Protein 6.2 L (6.3-8.2) g/dL Albumin 3.1 L (3.5-5.0) g/dL 03/25/21 Range/Units 19:50 WBC (3.8-10.6) k/uL RBC (4.30-5.90) m/uL Hgb (13.0-17.5) gm/dL Hct (39.0-53.0) % MCV (80.0-100.0) fL MCH (25.0-35.0) pg MCHC (31.0-37.0) g/dL RDW (11.5-15.5) % Plt Count (150-450) k/uL MPV Neutrophils % % Lymphocytes % % Monocytes % % Eosinophils % % Basophils % % Neutrophils # (1.3-7.7) k/uL Lymphocytes # (1.0-4.8) k/uL Monocytes # (0-1.0) k/uL Eosinophils # (0-0.7) k/uL Basophils # (0-0.2) k/uL Hypochromasia PT (9.0-12.0) sec INR (<1.2) APTT (22.0-30.0) sec Sodium (137-145) mmol/L Potassium (3.5-5.1) mmol/L Chloride (98-107) mmol/L Carbon Dioxide (22-30) mmol/L Anion Gap mmol/L BUN (9-20) mg/dL Creatinine (0.66-1.25) mg/dL Est GFR (CKD-EPI)AfAm (>60 ml/min/1.73 sqM) Est GFR (CKD-EPI)NonAf (>60 ml/min/1.73 sqM) Glucose (74-99) mg/dL POC Glucose (mg/dL) 115 H (75-99) mg/dL POC Glu Defensive Driving Instructor Jaime Collins Calcium (8.4-10.2) mg/dL Total Bilirubin (0.2-1.3) mg/dL AST (17-59) U/L ALT (4-49) U/L Alkaline Phosphatase (38-126) U/L Total Protein (6.3-8.2) g/dL Albumin (3.5-5.0) g/dL Disposition Clinical Impression: Femoral neck fracture, Renal failure, Hyperkalemia Disposition: ADMITTED IP TO THIS HOSP Referrals: Emerson Bright MD [Primary Care Provider] - 1-2 days Time of Disposition: 19:54
[2021-03-25] MEDS ORDERED: hydrALAZINE HCL 20 MG/ML 1 ML VIAL IVP STA ×2 (17:22→20:04)
[2021-03-25] MEDS ORDERED: HYDROmorphone 0.5 MG/0.5 ML SYRINGE IVP STA (18:04)
[2021-03-25 19:14] LABS: Basophils % (A) 0 %; Eosinophils # (A) 0.1 k/uL (0-0.7); Eosinophils % (A) 0 %; HCT 37.8 % (39.0-53.0); HGB 11.9 gm/dL (13.0-17.5); Hypochromasia Slight; Lymphocytes # (A) 0.7 k/uL (1.0-4.8); Lymphocytes % (A) 6 %; MCH 30.6 pg (25.0-35.0); MCHC 31.4 g/dL (31.0-37.0); MCV 97.5 fL (80.0-100.0); Mean Platelet Volume 8.1; Monocytes # (A) 0.5 k/uL (0-1.0); Monocytes % (A) 5 %; Neutrophils # (A) 9.9 k/uL (1.3-7.7); Neutrophils % (A) 88 %; Platelet Count 412 k/uL (150-450); RBC 3.88 m/uL (4.30-5.90); RDW 13.6 % (11.5-15.5); WBC 11.3 k/uL (3.8-10.6)
[2021-03-25 19:19] LABS: Albumin 3.1 g/dL (3.5-5.0); Calcium 8.3 mg/dL (8.4-10.2); Potassium 5.9 mmol/L (3.5-5.1); Total Bilirubin 0.3 mg/dL (0.2-1.3); Total Protein 6.2 g/dL (6.3-8.2)
--- NOTE | 2021-03-25 19:26 | XR ---
EXAMINATION: XR chest 2V DATE AND TIME: 03/25/2021 7:08 PM CLINICAL INDICATION: PHH; Difficulty breathing TECHNIQUE: Frontal and lateral radiographs COMPARISON: None FINDINGS: There is evidence of a moderate right pleural effusion and a relatively small left pleural effusion. There is airlessness throughout the right mid and lower lung zone, with silhouetting of the right hem idiaphragm, consistent with atelectasis and/or pneumonia of the right middle and lower lobes. There i s airlessness throughout much of the left lower lobe, with silhouetting of the left hemidiaphragm, co nsistent with atelectasis and/or pneumonia left lower lobe. The right upper lobe is clear and well-expanded. The left upper and mid lung zones are clear and well -expanded. There are no abnormal gas collections. No mediastinal shift. Cardiac silhouette appears mildly enlarged. The skeletal structures and soft tissues are negative for acute findings. IMPRESSION: 1. Prominent bibasilar findings, greater on the upright. 2. Evidence of mild cardiac silhouette enlargement.
[2021-03-25 19:35] LABS: INR 0.9 (<1.2); Partial Thromboplastin Time 23.6 sec (22.0-30.0); Prothrombin Time 10.1 sec (9.0-12.0)
[2021-03-25] MEDS ORDERED: HYDROmorphone 0.5 MG/0.5 ML SYRINGE IVP PRN (19:41)
[2021-03-25 19:53] LABS: Glucose,Whole Blood 115 mg/dL (75-99)
[2021-03-25] MEDS ORDERED: SODIUM CHLORIDE 0.9% 1,000 ML IV ONE (20:01)
--- NOTE | 2021-03-25 20:05 | XR ---
PROCEDURE: XR Hip RT and AP Pelvis - 3V DATE AND TIME: 03/25/2021 7:08 PM CLINICAL INDICATION: Pain; trauma TECHNIQUE: AP pelvis, coned AP and crosstable lateral views. COMPARISON: None FINDINGS: There is a right subcapital hip fracture, with superolateral migration of the proximal femu r with respect to the femoral head, and approximately 2 cm override. The femoral head remains seated within the acetabulum. There are no obvious fracture fragments. No other fractures. No other acute findings. IMPRESSION: Right subcapital hip fracture.
[2021-03-25] MEDS ORDERED: SODIUM POLYSTYRENE SULFONATE 15 GM/60 ML BOTTLE PO STA (20:06)
[2021-03-26 01:01] LABS: Glucose,Whole Blood 285 mg/dL (75-99)
[2021-03-26] MEDS: carvediloL 6.25 MG TAB PO SCH ×2 (07:16→20:31)
[2021-03-26] MEDS: CALCIUM ACETATE 667 MG TAB PO SCH ×3 (07:16→16:50)
[2021-03-26] MEDS: FUROSEMIDE 40 MG TAB PO SCH (07:17)
[2021-03-26] MEDS: FERROUS SULFATE 325 MG TAB PO SCH (07:17)
[2021-03-26] MEDS: FAMOTIDINE 20 MG TAB PO SCH (07:20)
[2021-03-26] MEDS: HYDROmorphone 0.5 MG/0.5 ML SYRINGE IVP PRN ×2 (07:21→17:43)
[2021-03-26 08:40] LABS: Glucose,Whole Blood 206 mg/dL (75-99)
[2021-03-26] MEDS: Insulin Aspart (For Pump) 100 UNIT/ML VIAL SQ-PUMP SCH ×2 (08:59→23:34)
[2021-03-26 11:25] LABS: Glucose,Whole Blood 194 mg/dL (75-99)
[2021-03-26 11:29] LABS: African American GFR (CKD) 10 (>60 ml/min/1.73 sqM); Anion Gap 8 mmol/L; Blood Urea Nitrogen 69 mg/dL (9-20); Carbon Dioxide 21 mmol/L (22-30); Chloride 112 mmol/L (98-107); Glucose 211 mg/dL (74-99); Non-African American GFR(CKD) 9 (>60 ml/min/1.73 sqM); Potassium 5.2 mmol/L (3.5-5.1); Sodium 141 mmol/L (137-145)
--- NOTE | 2021-03-26 11:46 | P.HPOR ---
History of Present Illness H&P Date: 03/26/21 This patient is a 71-year-old male with past medical history of diabetes currently with insulin pump, end-stage renal disease on hemodialysis, hypertension, hyperlipidemia that presented to [facility] emergency department on 03/25/21 with complaint of right hip pain following fall. Patient states he was at home and slipped on some loose papers, and landed directly into the right hip. He states he was unable to get up on his own. He called for help from a neighbor, who lifted the patient into his car and transported the patient to [facility] emergency department. X-rays of the right hip in the emergency department revealed a right subcapital femoral neck fracture. Patient was admitted under the care of our orthopedic service for surgical intervention. Potassium is 5.9, creatinine 5.5 on admission. Internal medicine was consulted, as well as nephrology, for pre-operative medical clearance. The patient is seen and examined bedside on the fourth floor. He is complaining of isolated right hip pain. He states he did not his head when he fell. He states he is not taking blood thinners. He complains of isolated right hip pain at this time. There are no additional complaints. Vital signs stable. Past Medical History Past Medical History: Cancer, Diabetes Mellitus, Hyperlipidemia, Hypertension, Osteoarthritis (OA), Renal Disease Additional Past Medical History / Comment(s): skin CA, History of Any Multi-Drug Resistant Organisms: None Reported Past Surgical History: Adenoidectomy, Cholecystectomy, Tonsillectomy Additional Past Surgical History / Comment(s): skin CA,collette cataracts. fistula on left arm Past Anesthesia/Blood Transfusion Reactions: No Reported Reaction Additional Past Anesthesia/Blood Transfusion Reaction / Comment(s): no hx blood transfusion Past Psychological History: No Psychological Hx Reported Smoking Status: Never smoker Past Alcohol Use History: Occasional Past Drug Use History: None Reported - Past Family History Father Family Medical History: CVA/TIA, Hypertension Mother Family Medical History: No Reported History Sister(s) Family Medical History: Cancer Additional Family Medical History / Comment(s): Breast Medications and Allergies Home Medications Medication Instructions Recorded Confirmed Type Calcium Acetate [Phoslo] 667 mg PO TID-W/MEALS 12/01/20 03/25/21 History Carvedilol [Coreg] 6.25 mg PO BID 12/01/20 03/25/21 History Ergocalciferol [Vitamin D2 (1250 1,250 mcg PO SALMERON 12/01/20 03/25/21 History Mcg = 22590 Iu)] Ferrous Sulfate [Iron] 325 mg PO DAILY 12/01/20 03/25/21 History Furosemide [Lasix] 40 mg PO DAILY 12/01/20 03/25/21 History Insulin Aspart (For Pump) [NovoLOG 0.01 unit SQ-PUMP CONTINUOUS 12/01/20 History (For Pump)] Allergies Allergy/AdvReac Type Severity Reaction Status Date / Time No Known Allergies Allergy Verified 03/25/21 17:57 Physical Examination On examination, the patient is sitting up in bed in no apparent distress. He is alert and oriented 3. His head appears normocephalic and atraumatic. His breathing appears nonlabored. On inspection of his bilateral upper extremities, there are no obvious deformities or signs of trauma. On inspection of his left lower extremity, there are no obvious deformities or signs of trauma. No pain to passive [id number] of the left hip. On inspection of the right hip, there is a superficial healed scar at the anteriomedial hip. (Per patient, this is from a past skin cancer removal.) There is diffuse pain on palpation of the hip. ROM of the right hip is not tested at this time. No pain with palpation of the right knee, lower leg, ankle, foot. Patient has good strength and ROM of the right ankle and toes. Motor and sensory function intact right lower extremity. Dorsalis pedis pulse +2, right lower extremity is warm and well perfused with brisk capillary refill distally. Calves are soft and non-tender to palpation. Results Right hip and pelvis x-ray 03/25/21: Displaced right subcapital femoral neck fracture. - Labs Labs: Abnormal Lab Results - Last 24 Hours (Table) 03/25/21 03/25/21 03/25/21 Range/Units 18:00 18:00 19:50 WBC 11.3 H (3.8-10.6) k/uL RBC 3.88 L (4.30-5.90) m/uL Hgb 11.9 L (13.0-17.5) gm/dL Hct 37.8 L (39.0-53.0) % Neutrophils # 9.9 H (1.3-7.7) k/uL Lymphocytes # 0.7 L (1.0-4.8) k/uL Potassium 5.9 H (3.5-5.1) mmol/L Chloride 111 H (98-107) mmol/L Carbon Dioxide 21 L (22-30) mmol/L BUN 69 H (9-20) mg/dL Creatinine 5.50 H (0.66-1.25) mg/dL Glucose 147 H (74-99) mg/dL POC Glucose (mg/dL) 115 H (75-99) mg/dL Calcium 8.3 L (8.4-10.2) mg/dL Total Protein 6.2 L (6.3-8.2) g/dL Albumin 3.1 L (3.5-5.0) g/dL 03/26/21 03/26/21 Range/Units 00:57 08:38 WBC (3.8-10.6) k/uL RBC (4.30-5.90) m/uL Hgb (13.0-17.5) gm/dL Hct (39.0-53.0) % Neutrophils # (1.3-7.7) k/uL Lymphocytes # (1.0-4.8) k/uL Potassium (3.5-5.1) mmol/L Chloride (98-107) mmol/L Carbon Dioxide (22-30) mmol/L BUN (9-20) mg/dL Creatinine (0.66-1.25) mg/dL Glucose (74-99) mg/dL POC Glucose (mg/dL) 285 H 206 H (75-99) mg/dL Calcium (8.4-10.2) mg/dL Total Protein (6.3-8.2) g/dL Albumin (3.5-5.0) g/dL H & H 03/25/21 Range/Units 18:00 Hgb 11.9 L (13.0-17.5) gm/dL Hct 37.8 L (39.0-53.0) % Coagulation 03/25/21 Range/Units 18:00 INR 0.9 (<1.2) Result Diagrams: 03/25/21 18:00 03/25/21 18:00 Assessment and Plan Assessment: Displaced right subcapital femoral neck fracture. Plan: - The clinical and imaging findings were discussed with the patient. The patient was discussed with Dr. Ken and Dr. Salvador. Recommend a right hip hemiarthroplasty for right femoral neck fracture. The risks were discussed with the patient. The patient gave verbal consent to go forward with surgery. - Internal medicine and nephrology have been consulted for preoperative medical clearance and evaluation. - Nonweightbearing right lower extremity. Bed rest. - Pain management as needed. - NPO diet at midnight. - We will plan for surgery tomorrow morning, if medically cleared.
[2021-03-26] MEDS ORDERED: ONDANSETRON 4 MG/2 ML VIAL IVP PRN (13:18)
--- NOTE | 2021-03-26 13:25 | P.CONS ---
History of Present Illness - Reason for Consult Consult date: 03/26/21 - History of Present Illness HISTORY OF PRESENT ILLNESS Is a 71-year-old male patient of Dr. Bright past medical history of diabetes mellitus type 1 on insulin pump, end-stage renal disease with fistula in the left arm not accessed as of yet, hypertension, hyperlipidemia, generalized osteoarthritis, skin cancer. Patient states that he had a slip and fall yesterday. There was a newspaper on the kitchen floor and he landed on his right hip, unable to get up. He called a friend who assisted him into the car and brought him in the hospital for further evaluation. X-ray found a right subcapital hip fracture. Chest x-ray reveals prominent bibasilar findings greater on the right. Evidence of mild cardiac silhouette enlargement. WBC 11.3, hemoglobin 11.9 and platelet count 412. Repeat chemistry today reveals sodium 141, potassium 5.2, chloride 112, CO2 21, BUN 69 creatinine 5.72. Blood sugars running between 194 and 285. Coronavirus PCR not detected. Patient is seen today on the [facility] floor, consult also placed with Dr. Reese. REVIEW OF SYSTEMS Constitutional: No fever, no chills, no night sweats. No weight change. No weakness, fatigue or lethargy. No daytime sleepiness. EENT: No headache. No blurred vision or double vision, no loss of vision. No loss of Hearing, no ringing in the ears, no dizziness. No nasal drainage or congestion. No epistaxis. No sore throat. Lungs: No shortness of breath, cough, no sputum production. No wheezing. Cardiovascular: No chest pain, no lower extremity edema. No palpitations. No paroxysmal nocturnal dyspnea. No orthopnea. No lightheadedness or dizziness. No syncopal episodes. Abdominal: No abdominal pain. No nausea, vomiting. Chronic diarrhea. No constipation. No bloody or tarry stools. No loss of appetite. Genitourinary: No dysuria, increased frequency, urgency. No urinary retention. Musculoskeletal: No myalgias. No muscle weakness, no gait dysfunction, no frequent falls. No back pain. No neck pain. Reports right hip pain. Integumentary: No wounds, no lesions. No rash or pruritus. No unusual bruising. No change in hair or nails. Neurologic: No aphasia. No facial droop. No change in mentation. No head injury. No headache. No paralysis. No paresthesia. Psychiatric: No depression. No anxiety. No mood swings. Endocrine: Noted abnormal blood sugars. No weight change. No excessive sweating or thirst. No cold intolerance. SOCIAL HISTORY The patient states that he was a smoker for short period many years ago. He drinks beer occasionally. He denies any marijuana, illicit drug use. He lives alone. He does not use DME for ambulation and in no oxygen, CPAP or nebulizer in place. He is . FAMILY HISTORY Father in his 60s or 70s from CVA. Mother at age 91 from old age. Patient has one sister that at age 57 from breast cancer and melanoma. Patient does not have any children. PHYSICAL EXAMINATION Gen: This is a 71-year-old male, resting in bed. No acute distress noted. HEENT: Head is atraumatic, normocephalic. Pupils equal, round. Sclerae is an icteric. NECK: Supple. No JVD. No lymphadenopathy. No thyromegaly. LUNGS: Clear to auscultation. No wheezes or rhonchi. No intercostal retractions. HEART: Regular rate and rhythm. No murmur. ABDOMEN: Soft. Bowel sounds are present. No masses. No tenderness. EXTREMITIES: No pedal edema. No calf tenderness. NEUROLOGICAL: Patient is awake, alert and oriented x3. Cranial nerves 2 through 12 are grossly intact. ASSESSMENT AND PLAN 1. Right subcapital femoral fracture secondary to a slip and fall. Patient is scheduled for right hip hemiarthroplasty tomorrow morning. Patient is medically cleared for surgical intervention. He is currently nonweightbearing on the right lower extremity and bedrest. Continue Dilaudid as needed for pain, Zofran added for nausea, incentive spirometry to reduce incidence of atelectasis and hospital-acquired pneumonia, DVT prophylaxis per orthopedics. 2. Diabetes mellitus type I on insulin pump. Patient to continue insulin pump. 3. End-stage renal disease secondary to diabetes. Consult with nephrology. Patient has not yet started hemodialysis, has fistula to the left arm. 4. Hypertension. Continue Lasix 40 mg daily, Coreg 6.25 mg twice daily. 5. Hyperlipidemia. 6. 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 Continue PhosLo 667 mg 3 times daily. 7. Anemia of chronic kidney disease. Continue ferrous sulfate 325 mg daily. 8. GI prophylaxis. Pepcid 20 mg daily. 9. DVT prophylaxis. Per orthopedics. 10. COVID-19 testing negative. Patient has been hospitalized during a pandemic. Patient will be admitted to the hospital for a minimum of 2 night stay. DISCHARGE PLAN Home or [place]. Impression and plan of care have been directed as dictated by the signing physician. Marlena Santa nurse practitioner acting as scribe for signing physician. Past Medical History Past Medical History: Cancer, Diabetes Mellitus, Hyperlipidemia, Hypertension, Osteoarthritis (OA), Renal Disease Additional Past Medical History / Comment(s): skin CA, History of Any Multi-Drug Resistant Organisms: None Reported Past Surgical History: Adenoidectomy, Cholecystectomy, Tonsillectomy Additional Past Surgical History / Comment(s): skin CA,collette cataracts. fistula on left arm Past Anesthesia/Blood Transfusion Reactions: No Reported Reaction Additional Past Anesthesia/Blood Transfusion Reaction / Comm: no hx blood transfusion Past Psychological History: No Psychological Hx Reported Smoking Status: Never smoker Past Alcohol Use History: Occasional Past Drug Use History: None Reported - Past Family History Father Family Medical History: CVA/TIA, Hypertension Mother Family Medical History: No Reported History Sister(s) Family Medical History: Cancer Additional Family Medical History / Comment(s): Breast Medications and Allergies Home Medications Medication Instructions Recorded Confirmed Type Calcium Acetate [Phoslo] 667 mg PO TID-W/MEALS 12/01/20 03/25/21 History Carvedilol [Coreg] 6.25 mg PO BID 12/01/20 03/25/21 History Ergocalciferol [Vitamin D2 (1250 1,250 mcg PO SALMERON 12/01/20 03/25/21 History Mcg = 13263 Iu)] Ferrous Sulfate [Iron] 325 mg PO DAILY 12/01/20 03/25/21 History Furosemide [Lasix] 40 mg PO DAILY 12/01/20 03/25/21 History Insulin Aspart (For Pump) [NovoLOG 0.01 unit SQ-PUMP CONTINUOUS 12/01/20 03/25/21 History (For Pump)] Allergies Allergy/AdvReac Type Severity Reaction Status Date / Time No Known Allergies Allergy Verified 03/25/21 17:57 Physical Exam Vitals: Vital Signs Temp Pulse Pulse Resp BP BP Pulse Ox 03/26/21 08:07 16 03/26/21 07:13 98.5 F 85 16 175/80 92 L 03/26/21 07:00 16 03/26/21 01:48 98.1 F 84 169/73 94 L 03/25/21 22:24 88 16 160/80 94 L 03/25/21 22:00 78 17 158/68 96 03/25/21 19:30 80 17 167/70 97 03/25/21 19:00 91 17 183/77 95 03/25/21 18:00 81 17 196/80 98 03/25/21 16:06 98.2 F 77 18 224/87 99 Intake and Output 03/25/21 03/26/21 03/26/21 22:59 06:59 14:59 Output Total 520 Balance -520 Output: Urine 520 Other: # Voids 2 # Bowel Movements 0 Weight 65.771 kg Results CBC & Chem 7: 03/25/21 18:00 03/26/21 10:29 Labs: Abnormal Lab Results - Last 24 Hours (Table) 03/25/21 03/25/21 03/25/21 Range/Units 18:00 18:00 19:50 WBC 11.3 H (3.8-10.6) k/uL RBC 3.88 L (4.30-5.90) m/uL Hgb 11.9 L (13.0-17.5) gm/dL Hct 37.8 L (39.0-53.0) % Neutrophils # 9.9 H (1.3-7.7) k/uL Lymphocytes # 0.7 L (1.0-4.8) k/uL Potassium 5.9 H (3.5-5.1) mmol/L Chloride 111 H (98-107) mmol/L Carbon Dioxide 21 L (22-30) mmol/L BUN 69 H (9-20) mg/dL Creatinine 5.50 H (0.66-1.25) mg/dL Glucose 147 H (74-99) mg/dL POC Glucose (mg/dL) 115 H (75-99) mg/dL Calcium 8.3 L (8.4-10.2) mg/dL Total Protein 6.2 L (6.3-8.2) g/dL Albumin 3.1 L (3.5-5.0) g/dL 03/26/21 03/26/21 Range/Units 00:57 08:38 WBC (3.8-10.6) k/uL RBC (4.30-5.90) m/uL Hgb (13.0-17.5) gm/dL Hct (39.0-53.0) % Neutrophils # (1.3-7.7) k/uL Lymphocytes # (1.0-4.8) k/uL Potassium (3.5-5.1) mmol/L Chloride (98-107) mmol/L Carbon Dioxide (22-30) mmol/L BUN (9-20) mg/dL Creatinine (0.66-1.25) mg/dL Glucose (74-99) mg/dL POC Glucose (mg/dL) 285 H 206 H (75-99) mg/dL Calcium (8.4-10.2) mg/dL Total Protein (6.3-8.2) g/dL Albumin (3.5-5.0) g/dL
[2021-03-26 13:38] LABS: Glucose,Whole Blood 196 mg/dL (75-99)
[2021-03-26 16:45] LABS: Glucose,Whole Blood 178 mg/dL (75-99)
[2021-03-26] MEDS: hydrALAZINE HCL 50 MG TAB PO SCH ×2 (18:03→20:27)
[2021-03-26 20:17] LABS: Glucose,Whole Blood 178 mg/dL (75-99)
[2021-03-26] MEDS: hydrALAZINE HCL 20 MG/ML 1 ML VIAL IVP PRN (20:31)
--- NOTE | 2021-03-26 21:04 | CONS ---
CONSULTATION REASON FOR CONSULT: Renal failure. HISTORY OF PRESENT ILLNESS: Patient is a 71-year-old male with CKD stage 4 to 5, not yet on hemodialysis. The patient was admitted to the hospital with a history of fall. He sustained a right hip fracture and there are plans for surgery today. Patient's potassium was elevated at 5.9 mEq/L yesterday. Patient currently has a left arm AV fistula which was placed about a month ago. Currently, there are no complaints of nausea, vomiting or abdominal pain. Appetite is fairly good. No increased weakness. Baseline creatinine has been close to 4-4.5 mg/dL. PAST MEDICAL HISTORY: Significant for CKD stage 5, type 1 diabetes, hypertension, osteoarthritis, skin cancer. PAST SURGICAL HISTORY: Adenoidectomy cholecystectomy, tonsillectomy, cataract surgery, fistula left arm. SOCIAL HISTORY: Negative for smoking, drug abuse or alcohol abuse. MEDICATIONS: Medications prior to admission included PhosLo, Coreg, vitamin D, Lasix, iron, insulin. ALLERGIES: None. REVIEW OF SYSTEMS: As per HPI. Other systems negative. EXAMINATION: Patient is comfortable, awake, not in any acute distress. Blood pressure 169/73, heart rate 84 per minute. Patient is afebrile. Examination of the heart S1, S2. Examination of the lungs, bilateral breath sounds are heard. Abdomen is soft, nontender. Examination of lower extremities shows no evidence of edema. Patient has a left arm AV fistula. [facility] [facility] MAGISTRATE exam grossly intact. LAB: Show sodium 141, potassium 5.2, chloride 112, CO2 is 21, BUN 69, creatinine 5.72, calcium 8.0. ASSESSMENT: 1. Chronic kidney disease stage 5 secondary to nephrosclerosis. The patient will need to start hemodialysis soon. However, at this time there is no need to start urgent dialysis. We are waiting for the AV fistula to mature. Hyperkalemia will be treated with medications. 2. Hyperkalemia associated with advanced CKD. Discussed low-potassium diet. Blood sugar is slightly on the higher side. This will also contribute to the hyperkalemia. Avoid Kayexalate in the future. We can use Lokelma if patient remains hyperkalemic. 3. Status post fall. Patient states he tripped. He currently has a right hip fracture and plans for surgery today. 4. CKD mineral bone disorder. PLAN: Okay to proceed with surgery. No need for starting renal replacement therapy at this time. Will continue to maintain close followup as outpatient. Use Lokelma for treatment of hyperkalemia. Avoid Kayexalate and control blood sugars. Thank you for this consultation. MMODL / IJN: [id number] /
[2021-03-27 02:54] LABS: Hepatitis B Surface AB- Quant 3.5 mIU/mL; Hepatitis B Surface Antibody Nonreactive (Nonreactive); Hepatitis B Surface Antigen Nonreactive (Nonreactive)
[2021-03-27] MEDS ORDERED: ROPIVACAINE 246.25 MG, EPINEPHrine 0.5 MG, KETOROLAC (30 mg/mL) 30 MG, cloNIDine HCL/PF... MISCELLANE PRN ×5 (05:00)
[2021-03-27] MEDS: hydrALAZINE HCL 20 MG/ML 1 ML VIAL IVP PRN (06:06)
[2021-03-27] MEDS: CALCIUM ACETATE 667 MG TAB PO SCH ×3 (07:14→17:21)
[2021-03-27] MEDS: FERROUS SULFATE 325 MG TAB PO SCH (07:15)
[2021-03-27 07:22] LABS: Glucose,Whole Blood 150 mg/dL (75-99)
[2021-03-27] MEDS: FAMOTIDINE 20 MG TAB PO SCH (07:29)
[2021-03-27] MEDS: hydrALAZINE HCL 50 MG TAB PO SCH ×3 (07:29→20:58)
[2021-03-27] MEDS: FUROSEMIDE 40 MG TAB PO SCH (07:29)
[2021-03-27] MEDS: carvediloL 6.25 MG TAB PO SCH ×2 (07:29→20:58)
[2021-03-27] MEDS: HYDROmorphone 0.5 MG/0.5 ML SYRINGE IVP PRN (07:34)
[2021-03-27 09:21] LABS: HCT 35.3 % (39.6-50.0); HGB 10.8 g/dL (13.0-17.0); MCH 30.1 pg (27.0-32.0); MCHC 30.6 g/dL (32.0-37.0); MCV 98.3 fL (80.0-97.0); Mean Platelet Volume 10.1 fL (9.5-12.2); Platelet Count 338 X 10*3/uL (140-440); RBC 3.59 X 10*6/uL (4.40-5.60); RDW 13.7 % (11.5-14.5); WBC 10.65 X 10*3/uL (4.50-10.00)
[2021-03-27] MEDS ORDERED: ROPIVACAINE/EPI/CLONIDINE/KET 50 ML SYRINGE MISCELLANE PRN (09:24)
[2021-03-27] MEDS ORDERED: TRANEXAMIC ACID 1,000 MG in SODIUM CHLORIDE 0.9% 100 ML IVPB ONE ×4 (09:24)
[2021-03-27] MEDS ORDERED: ROCURONIUM 10 MG/ML (5 ML VIAL) IV ONE (09:32)
[2021-03-27] MEDS ORDERED: SODIUM CHLORIDE 0.9% 100 ML BAG ONE (09:32)
[2021-03-27] MEDS ORDERED: MIDAZOLAM 2 MG/2 ML VIAL ONE (09:32)
[2021-03-27] MEDS ORDERED: ONDANSETRON 4 MG/2 ML VIAL ONE (09:32)
[2021-03-27] MEDS ORDERED: LIDOCAINE 1% INJ 10MG/ML (20 ML MDV) ONE (09:32)
[2021-03-27] MEDS ORDERED: GLYCOPYRROLATE 0.2 MG/ML 2 ML VIAL ONE (09:32)
[2021-03-27] MEDS ORDERED: PROPOFOL 10 MG/ML 20 ML VIAL IV ONE (09:32)
[2021-03-27] MEDS ORDERED: TRANEXAMIC ACID 1,000 MG/10 ML VIAL ONE (09:32)
[2021-03-27] MEDS ORDERED: fentaNYL (PF) 50 MCG/ML 2 ML AMP ONE (09:32)
[2021-03-27] MEDS ORDERED: NEOSTIGMINE 1 MG/ML 10 ML VIAL ONE (09:32)
[2021-03-27] MEDS ORDERED: ePHEDrine 50 MG/ML 1 ML AMP ONE (09:32)
[2021-03-27] MEDS ORDERED: LACTATED RINGERS 1,000 ML IV ONE ×2 (09:35→12:16)
[2021-03-27] MEDS ORDERED: SODIUM CHLORIDE 0.9% 100 ML with ceFAZolin 2,000 MG IV ONE ×2 (10:00)
[2021-03-27 10:17] LABS: African American GFR (CKD) 10 (>60 ml/min/1.73 sqM); Blood Urea Nitrogen 75 mg/dL (9-20); Carbon Dioxide 24 mmol/L (22-30); Chloride 110 mmol/L (98-107); Glucose 136 mg/dL (74-99); Non-African American GFR(CKD) 8 (>60 ml/min/1.73 sqM)
[2021-03-27 10:34] LABS: Anion Gap 7 mmol/L; Calcium 7.5 mg/dL (8.4-10.2); Potassium 4.4 mmol/L (3.5-5.1); Sodium 141 mmol/L (137-145)
[2021-03-27] MEDS ORDERED: SODIUM CHLORIDE 0.9% 200 ML with EPINEPHrine 2 MG IV ONE ×2 (10:46)
--- NOTE | 2021-03-27 10:47 | P.PN ---
Subjective Patient is seen in follow-up for acute kidney injury on chronic kidney disease. Patient has chronic kidney disease stage V with creatinine of 4.6 from January 2021. Patient has a maturing AV fistula. Has been voiding. No vomiting or diarrhea. Appetite is good. Scheduled for hip surgery today. Blood pressure high. Vital signs are stable. General: The patient appeared well nourished and normally developed. HEENT: Head exam is unremarkable. LUNGS: Breath sounds decreased. HEART: Rate and Rhythm are regular. ABDOMEN: Soft, no distention. EXTREMITITES: 1+ edema. Objective - Vital Signs Vital signs: Vital Signs Temp 97.2 F L 03/27/21 08:00 Pulse 80 03/27/21 08:00 Resp 18 03/27/21 08:00 BP 195/83 03/27/21 08:00 Pulse Ox 92 L 03/27/21 08:00 Intake & Output 03/26/21 03/27/21 03/27/21 18:59 06:59 18:59 Other: # Voids 2 - Labs CBC & Chem 7: 03/27/21 06:36 03/27/21 10:06 Labs: Abnormal Lab Results - Last 24 Hours (Table) 03/26/21 03/26/21 03/26/21 Range/Units 10:29 11:24 13:36 WBC (4.50-10.00) X 10*3/uL RBC (4.40-5.60) X 10*6/uL Hgb (13.0-17.0) g/dL Hct (39.6-50.0) % MCV (80.0-97.0) fL MCHC (32.0-37.0) g/dL Potassium 5.2 H (3.5-5.1) mmol/L Chloride 112 H (98-107) mmol/L Carbon Dioxide 21 L (22-30) mmol/L BUN 69 H (9-20) mg/dL Creatinine 5.72 H (0.66-1.25) mg/dL Glucose 211 H (74-99) mg/dL POC Glucose (mg/dL) 194 H 196 H (75-99) mg/dL Calcium 8.0 L (8.4-10.2) mg/dL 03/26/21 03/26/21 03/27/21 Range/Units 16:43 20:16 06:36 WBC 10.65 H (4.50-10.00) X 10*3/uL RBC 3.59 L (4.40-5.60) X 10*6/uL Hgb 10.8 L (13.0-17.0) g/dL Hct 35.3 L (39.6-50.0) % MCV 98.3 H (80.0-97.0) fL MCHC 30.6 L (32.0-37.0) g/dL Potassium (3.5-5.1) mmol/L Chloride (98-107) mmol/L Carbon Dioxide (22-30) mmol/L BUN (9-20) mg/dL Creatinine (0.66-1.25) mg/dL Glucose (74-99) mg/dL POC Glucose (mg/dL) 178 H 178 H (75-99) mg/dL Calcium (8.4-10.2) mg/dL 03/27/21 03/27/21 Range/Units 07:21 10:06 WBC (4.50-10.00) X 10*3/uL RBC (4.40-5.60) X 10*6/uL Hgb (13.0-17.0) g/dL Hct (39.6-50.0) % MCV (80.0-97.0) fL MCHC (32.0-37.0) g/dL Potassium (3.5-5.1) mmol/L Chloride 110 H (98-107) mmol/L Carbon Dioxide (22-30) mmol/L BUN 75 H (9-20) mg/dL Creatinine 6.16 H (0.66-1.25) mg/dL Glucose 136 H (74-99) mg/dL POC Glucose (mg/dL) 150 H (75-99) mg/dL Calcium 7.5 L (8.4-10.2) mg/dL Assessment and Plan Plan: Assessment: 1. Chronic kidney disease stage V. Creatinine was 4.6 in January 2021. Creatinine today is 6.16. Has been voiding. Etiology is diabetic kidney disease. He has a maturing AV fistula - vascular surgeon is Dr. Brenner. 2. Hyperkalemia secondary to chronic kidney disease. Improved. 3. Diabetes mellitus. 4. Fall with right hip fracture. Scheduled for surgery today. 5. Chronic kidney disease mineral bone disease maintained on PhosLo. 6. Hypertension with chronic disease. Plan: Maintain Lasix. Increase hydralazine to 100 mg 3 times daily. To be held for systolic blood pressure less than 125. Strict I's and O's. Continue to assess daily for need for renal replacement therapy. No urgency at this time.
[2021-03-27 11:10] LABS: African American GFR (CKD) 10.3 (60.0-200.0); Anion Gap 14.9 mmol/L (10.00-18.00); BUN/Creat Ratio 11.79 Ratio (12.00-20.00); Blood Urea Nitrogen 68.4 mg/dL (9.0-27.0); Calcium 7.9 mg/dL (8.7-10.3); Carbon Dioxide 19.1 mmol/L (20.0-27.5); Non-African American GFR(CKD) 8.9 (60.0-200.0); Potassium 4.6 mmol/L (3.5-5.5)
[2021-03-27] MEDS ORDERED: SODIUM CHLORIDE 0.9% 1,000 ML IV ONE ×2 (12:29)
[2021-03-27 12:34] LABS: Glucose,Whole Blood 113 mg/dL (75-99)
[2021-03-27] MEDS ORDERED: HYDROcodone/APAP 5-325MG 1 EACH TAB PO PRN (12:34)
[2021-03-27] MEDS ORDERED: NALOXONE 0.4 MG/ML 1 ML VIAL IV PRN (12:34)
[2021-03-27] MEDS ORDERED: hydrOXYzine pamoate 25 MG CAP PO PRN (12:34)
--- NOTE | 2021-03-27 12:51 | P.OP ---
Date of Procedure: 03/27/21 Preoperative Diagnosis: 1. Displaced right subcapital femoral neck fracture 2. Chronic renal failure with preoperative creatinine of 5.9 3. Type 2 diabetes with insulin pump 4. Coronary artery disease Postoperative Diagnosis: Same Procedure(s) Performed: 1. Right direct anterior hip hemiarthroplasty 2. Application of negative pressure incisional wound VAC, right hip, less than 50 cm Implants: Ingraham accolade C size #5 high offset cemented stem with 51 +0 bipolar femoral head Anesthesia: ALYSIA Surgeon: Helder Ken Purse Framer #1: Licha Salvador Purse Framer #2: Estiven Guadalupe Estimated Blood Loss (ml): 150 Pathology: other (femoral head) Condition: stable Disposition: PACU Indications for Procedure: The patient is a very pleasant 71-year-old male with multiple medical problems including chronic renal insufficiency on dialysis, type 2 diabetes with an insulin pump, and coronary artery disease who sustained a ground-level fall resulting in a displaced right femoral neck fracture. He was admitted to orthopedics and seen preoperatively by internal medicine, cardiology, and nephrology. He was cleared for surgery. I met with the patient yesterday discuss treatment options. Due to his multiple medical comorbidities I recommended a right hip hemiarthroplasty. We discussed the potential risks and complications of surgery including but not limited to risk of anesthesia, superficial infection, deep periprosthetic joint infection, delayed wound healing, wound necrosis, damage to local blood vessels or nerves, intraoperative fracture, postoperative fracture, postoperative hip dislocation, leg length discrepancy, need for further surgery, DVT, PE, other medical complications, and possibly . The patient understands that he has a very high risk of having a complication due to his multiple medical comorbidities. He provided both his verbal and written consent to go forward with surgery. Description of Procedure: The patient was identified in preoperative holding and the correct right leg was marked with my initials. I reviewed the consent form with the patient and all of his questions were answered. The patient was then brought back to the operating room by anesthesia. He was given a general anesthetic, preoperative antibiotics, and tranexamic acid on the gurney. Boots for the Lay table were applied. The patient was then carefully transferred onto the Lay table. Both boots were hooked up to the spars. He was carefully positioned and all bony prominences were well-padded. A perineal post was placed. Nonsterile drapes were placed around the right leg and hip to isolate the anterior aspect of the right hip. A timeout was performed identifying the correct patient, operative extremity, and procedure. Preoperative fluoroscopy was then brought in to create a metallic bar across the bottom of the ischium and measurements of length and offset were made on the contralateral hip. The right leg was then prepped and draped in the standard sterile fashion. On inspection of the skin overlying the right anterior hip there was no oblique incision in the groin. I marked out a standard longitudinal approach for direct anterior hip approach and it did not cross the scar. Skin incision was made with a scalpel. Dissection was carried down carefully through subcutaneous tissue with electrocautery. The fascia over the tensor was split just lateral to the ASIS. I bluntly developed the interval between the tensor and sartorius. A blunt tipped cobra was placed superior to the neck. The deep enveloping fascia of the tensor was incised with electrocautery and the circumflex vessels were controlled with bipolar sealant. Pre-capsular fat was elevated off the anterior capsule and a second Cobra retractor was placed inferior to the neck. I then carefully teased off the rectus from the anterior capsule and a blunt tipped Crawford was placed over the anterior aspect of the acetabulum. The capsule was teed and there was a large hemarthrosis. The superior capsular leaflet was elevated and Cobra was placed superior to the neck. The inferior capsular leaflet was then incised. A neck cut was made just distal to the femoral neck fracture. Traction was applied to the Lay table and 45 of external rotation was applied. The femoral head was removed, handed off to the back table, and sized at 51 mm. The superior capsular leaflet was then removed. On inspection of the acetabulum there were minimal degenerative changes. The femur was then circumferentially exposed by releasing the pubofemoral ligament and the remnants of the dorsal lateral capsule. The leg was dropped and elevated using the table. I gained entrance to the canal with a boxed osteotome followed by a blunt tipped canal sound. I lateralized with a rattail rasp and then sequentially broached until a size 5 felt stable. A calcar planar was used to bring the neck cut flush with the broach. A 46 mm, -4 trial head was placed and all retractors were removed. The leg was elevated and carefully reduced. The hip felt stable to external rotation of 90. Fluoroscopy was brought in to verify position of the trial broach on orthogonal views of the femur. An AP pelvis with metallic bar was used to measure offset and length. The hip was carefully dislocated. Retractors were replaced and the trial implants were removed. The canal was prepared for cementing and striker Simplex with tobramycin cement was pressurized into the canal after a restrictor was placed distally. The final stem was gently tapped into place keeping the stem out of varus, following the patient's cherokee version, and seating the collar on the calcar. All extra cement was removed and the stem was held in place until it hardened. The final head was dispensed. The Herrera taper was cleansed and the inner ball of the bipolar head was tapped in place to engage the Herrera taper. The outer ball was placed. The hip was carefully reduced after thoroughly irri gating the acetabulum. The hip was stable to external rotation of 90. Final fluoroscopic images were taken. All bleeders were controlled with bipolar sealant. The wound was thoroughly irrigated with 3 L of sterile saline and a dilute Betadine soaked for 3 minutes. 2 g of vancomycin powder was placed in the wound. The wound was then carefully closed in layers using monofilament sutures. Due to the patient's multiple risk factors including type 2 diabetes and chronic renal insufficiency an incisional wound VAC was applied over the incision. Prior to closing the wound a drain was placed deep to the tensor. All instrument, sponge, and sharp counts were correct. The patient was then carefully taken off the Lay table and transferred to a radena. After removal of the boots his leg lengths felt equal. He was extubated by anesthesia and brought to recovery having tolerated the procedure well. Estiven Guadalupe PA-C was required as a skilled orthodontic technician assistant due to the complexity of the surgery. Plan: The patient can weight-bear as tolerated on his right hip. He'll receive 2 doses of postoperative Ancef in-house and then we'll start him on doxycycline 100 mg twice a day for 2 weeks due to his multiple risk factors for delayed wound healing and infection. I would recommend aspirin 81 mg twice a day on less internal medicine would like stronger chemoprophylaxis. The patient will need follow-up in our office in 1 week to change the upper bladimir wound VAC. His drain can be removed tomorrow if output is less than 100 mL's. Anticipate discharge to rehab.
[2021-03-27 13:47] LABS: Glucose,Whole Blood 117 mg/dL (75-99)
--- NOTE | 2021-03-27 13:54 | XR ---
Right hip. HISTORY: Right hip prosthesis. COMPARISON: None TECHNIQUE: 4 fluoroscopic spot views of a right hip replacement. FINDINGS: There is a right hip prosthesis which appear to be in anatomic alignment. There is no fracture or dis location.
--- NOTE | 2021-03-27 13:55 | XR ---
Right hip. HISTORY: Right hip arthroplasty. COMPARISON: None. TECHNIQUE: Single portable AP view the right hip was obtained following right hip arthroplasty. FINDINGS: There is a right hip prosthesis in anatomic alignment. There is no fracture or dislocation. IMPRESSION: Satisfactory appearance the right hip post right hip arthroplasty.
[2021-03-27 15:23] LABS: Basophils % (A) 0 %; Eosinophils # (A) 0.1 k/uL (0-0.7); Eosinophils % (A) 1 %; HCT 36.1 % (39.0-53.0); HGB 10.9 gm/dL (13.0-17.5); Hypochromasia Slight; Lymphocytes # (A) 0.6 k/uL (1.0-4.8); Lymphocytes % (A) 5 %; MCH 30.1 pg (25.0-35.0); MCHC 30.2 g/dL (31.0-37.0); MCV 99.6 fL (80.0-100.0); Mean Platelet Volume 7.6; Monocytes # (A) 0.5 k/uL (0-1.0); Monocytes % (A) 5 %; Neutrophils # (A) 9.7 k/uL (1.3-7.7); Neutrophils % (A) 89 %; Platelet Count 328 k/uL (150-450); RBC 3.63 m/uL (4.30-5.90); RDW 14.2 % (11.5-15.5); WBC 10.9 k/uL (3.8-10.6)
--- NOTE | 2021-03-27 15:41 | P.PN ---
Subjective Progress Note Date: 03/27/21 HISTORY OF PRESENT ILLNESS Is a 71-year-old male patient of Dr. Bright past medical history of diabetes mellitus type 1 on insulin pump, end-stage renal disease with fistula in the left arm not accessed as of yet, hypertension, hyperlipidemia, generalized osteoarthritis, skin cancer. Patient states that he had a slip and fall yesterday. There was a newspaper on the kitchen floor and he landed on his right hip, unable to get up. He called a friend who assisted him into the car and brought him in the hospital for further evaluation. X-ray found a right subcapital hip fracture. Chest x-ray reveals prominent bibasilar findings greater on the right. Evidence of mild cardiac silhouette enlargement. WBC 11.3, hemoglobin 11.9 and platelet count 412. Repeat chemistry today reveals sodium 141, potassium 5.2, chloride 112, CO2 21, BUN 69 creatinine 5.72. Blood sugars running between 194 and 285. Coronavirus PCR not detected. Patient is seen today on the [facility] floor, consult also placed with Dr. Reese. [email or web address] the following procedures Right direct anterior hip hemiarthroplasty ON 03/27/21 with Application of negative pressure incisional wound VAC, right hip, Implants: Esme accolade C size #5 high offset cemented stem with 51 +0 bipolar femoral head FOR Displaced right subcapital femoral neck fracture . Postop pain is under control, no nausea vomiting, no bowel movement yet, O2 on room air, has Zambrano catheter draining clear urine. Weightbearing status is cu rrently pending REVIEW OF SYSTEMS Constitutional: No fever, no chills, no night sweats. No weight change. No weakness, fatigue or lethargy. No daytime sleepiness. EENT: No headache. No blurred vision or double vision, no loss of vision. No loss of Hearing, no ringing in the ears, no dizziness. No nasal drainage or congestion. No epistaxis. No sore throat. Lungs: No shortness of breath, cough, no sputum production. No wheezing. Cardiovascular: No chest pain, no lower extremity edema. No palpitations. No paroxysmal nocturnal dyspnea. No orthopnea. No lightheadedness or dizziness. No syncopal episodes. Abdominal: No abdominal pain. No nausea, vomiting. Chronic diarrhea. No constipation. No bloody or tarry stools. No loss of appetite. Genitourinary: No dysuria, increased frequency, urgency. No urinary retention. Musculoskeletal: No myalgias. No muscle weakness, no gait dysfunction, no frequent falls. No back pain. No neck pain. Reports right hip pain. Integumentary: No wounds, no lesions. No rash or pruritus. No unusual bruising. No change in hair or nails.Right hip, VISHNU drain, with edema, +1, and a wound VAC in place to go dressing, Aquacel silver Neurologic: No aphasia. No facial droop. No change in mentation. No head injury. No headache. No paralysis. No paresthesia. Psychiatric: No depression. No anxiety. No mood swings. Endocrine: Noted abnormal blood sugars. No weight change. No excessive sweating or thirst. No cold intolerance. PHYSICAL EXAMINATION Gen: This is a 71-year-old male, resting in bed. No acute distress noted. HEENT: Head is atraumatic, normocephalic. Pupils equal, round. Sclerae is anicteric. NECK: Supple. No JVD. No lymphadenopathy. No thyromegaly. LUNGS: Clear to auscultation. No wheezes or rhonchi. No intercostal retractions. HEART: Regular rate and rhythm. No murmur. ABDOMEN: Soft. Bowel sounds are present. No masses. No tenderness. EXTREMITIES: No pedal edema. No calf tenderness. NEUROLOGICAL: Patient is awake, alert and oriented x3. Cranial nerves 2 through 12 are grossly intact. ASSESSMENT AND PLAN 1. Right subcapital femoral fracture secondary to a slip and fall. Patient is scheduled for right hip hemiarthroplasty 03/27/21. Patient is medically cleared for surgical intervention. He is currently nonweightbearing on the right lower extremity and bedrest. Continue Dilaudid as needed for pain, Zofran added for nausea, incentive spirometry to reduce incidence of atelectasis and hospital-acquired pneumonia, DVT prophylaxis per orthopedics. 2. Diabetes mellitus type I on insulin pump. Patient to continue insulin pump. 3. End-stage renal disease secondary to diabetes. Consult with nephrology. P frances has not yet started hemodialysis, has fistula to the left arm. 4. Hypertension. Continue Lasix 40 mg daily, Coreg 6.25 mg twice daily. 5. Hyperlipidemia. 6. 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 Continue PhosLo 667 mg 3 times daily. 7. Anemia of chronic kidney disease. Continue ferrous sulfate 325 mg daily. 8. GI prophylaxis. Pepcid 20 mg daily. 9. DVT prophylaxis. Per orthopedics. 10. COVID-19 testing negative. Patient has been hospitalized during a pandemic. Patient will be admitted to the hospital for a minimum of 2 night stay. DISCHARGE PLAN Home or [facility]. Vital Signs - 24 hr 03/26/21 03/26/21 03/26/21 18:17 19:14 20:00 Temperature 98.8 F Pulse Rate [ Pack Master ] Pulse Rate [ 75 76 Pulse Oximetery ] Respiratory 16 16 Rate Blood Pressure 211/88 175/76 [Right Arm] O2 Sat by Pulse 93 L Oximetry 03/26/21 03/27/21 03/27/21 20:28 02:00 05:53 Temperature 98.2 F Pulse Rate [ Pack Master ] Pulse Rate [ 76 70 79 Pulse Oximetery ] Respiratory 16 Rate Blood Pressure 185/82 173/72 195/79 [Right Arm] O2 Sat by Pulse 92 L Oximetry 03/27/21 03/27/21 03/27/21 07:30 08:00 12:29 Temperature 97.2 F L 97.4 F L Pulse Rate [ 65 Pack Master ] Pulse Rate [ 80 80 Pulse Oximetery ] Respiratory 18 18 12 Rate Blood Pressure 195/83 126/58 [Right Arm] O2 Sat by Pulse 92 L 94 L Oximetry 03/27/21 03/27/21 03/27/21 12:45 13:00 13:15 Temperature Pulse Rate [ 69 68 69 Pack Master ] Pulse Rate [ Pulse Oximetery ] Respiratory 16 16 16 Rate Blood Pressure 127/60 125/58 129/61 [Right Arm] O2 Sat by Pulse 100 96 97 Oximetry 03/27/21 03/27/21 13:30 14:00 Temperature 97.2 F L Pulse Rate [ 68 75 Pack Master ] Pulse Rate [ Pulse Oximetery ] Respiratory 16 16 Rate Blood Pressure 141/75 135/75 [Right Arm] O2 Sat by Pulse 97 98 Oximetry Laboratory Results WBC 10.9 k/uL (3.8-10.6) H 03/27/21 14:34 RBC 3.63 m/uL (4.30-5.90) L 03/27/21 14:34 Hgb 10.9 gm/dL (13.0-17.5) L 03/27/21 14:34 Hct 36.1 % (39.0-53.0) L 03/27/21 14:34 MCV 99.6 fL (80.0-100.0) 03/27/21 14:34 MCH 30.1 pg (25.0-35.0) 03/27/21 14:34 MCHC 30.2 g/dL (31.0-37.0) L 03/27/21 14:34 RDW 14.2 % (11.5-15.5) 03/27/21 14:34 Plt Count 328 k/uL (150-450) 03/27/21 14:34 MPV 7.6 03/27/21 14:34 Absolute Nucleated RBC 0 X 10*3/uL (0.00-0.00) 03/27/21 06:36 Neutrophils % 89 % 03/27/21 14:34 Lymphocytes % 5 % 03/27/21 14:34 Monocytes % 5 % 03/27/21 14:34 Eosinophils % 1 % 03/27/21 14:34 Basophils % 0 % 03/27/21 14:34 Neutrophils # 9.7 k/uL (1.3-7.7) H 03/27/21 14:34 Lymphocytes # 0.6 k/uL (1.0-4.8) L 03/27/21 14:34 Monocytes # 0.5 k/uL (0-1.0) 03/27/21 14:34 Eosinophils # 0.1 k/uL (0-0.7) 03/27/21 14:34 Basophils # 0.0 k/uL (0-0.2) 03/27/21 14:34 NRBC/100 WBC Diff 0 /100 WBCS (0.0-0.0) 03/27/21 06:36 Hypochromasia Slight 03/27/21 14:34 PT 10.1 sec (9.0-12.0) 03/25/21 18:00 INR 0.9 (<1.2) 03/25/21 18:00 APTT 23.6 sec (22.0-30.0) 03/25/21 18:00 Sodium 141 mmol/L (137-145) 03/27/21 10:06 Potassium 4.4 mmol/L (3.5-5.1) 03/27/21 10:06 Chloride 110 mmol/L (98-107) H 03/27/21 10:06 Carbon Dioxide 24 mmol/L (22-30) 03/27/21 10:06 Anion Gap 7 mmol/L 03/27/21 10:06 BUN 75 mg/dL (9-20) H 03/27/21 10:06 Creatinine 6.16 mg/dL (0.66-1.25) H 03/27/21 10:06 Est GFR (CKD-EPI)AfAm 10 (>60 ml/min/1.73 sqM) 03/27/21 10:06 Est GFR (CKD-EPI)NonAf 8 (>60 ml/min/1.73 sqM) 03/27/21 10:06 BUN/Creatinine Ratio 11.79 Ratio (12.00-20.00) L 03/27/21 06:36 Glucose 136 mg/dL (74-99) H 03/27/21 10:06 POC Glucose (mg/dL) 117 mg/dL (75-99) H 03/27/21 13:45 POC Glu Cereal Chemist Rupa Mccord 03/27/21 13:45 Calcium 7.5 mg/dL (8.4-10.2) L 03/27/21 10:06 Total Bilirubin 0.3 mg/dL (0.2-1.3) 03/25/21 18:00 AST 37 U/L (17-59) 03/25/21 18:00 ALT 40 U/L (4-49) 03/25/21 18:00 Alkaline Phosphatase 78 U/L (38-126) 03/25/21 18:00 Total Protein 6.2 g/dL (6.3-8.2) L 03/25/21 18:00 Albumin 3.1 g/dL (3.5-5.0) L 03/25/21 18:00 Coronavirus (PCR) Not Detected (Not Detectd) 03/25/21 00:10 Hep Bs Antigen Nonreactive (Nonreactive) 03/26/21 10:29 Hep Bs Antibody Nonreactive (Nonreactive) 03/26/21 10:29 Hep Bs Antibody, Quant 3.5 mIU/mL 03/26/21 10:29 Hep B Core Total Ab Nonreactive (Nonreactive) 03/26/21 10:29 Blood Type B Positive 03/27/21 10:06 Blood Type Confirm B Positive 03/25/21 18:00 Blood Type Recheck No Previous Record 03/27/21 10:06 Bld Type Recheck Status CABO Indicated 03/27/21 10:06 Antibody Screen NEGATIVE 03/27/21 10:06 Spec Expiration Date 03/30/2021 - 230503/27/21 10:06 Objective - Vital Signs Vital signs: Vital Signs Temp 97.2 F L 03/27/21 14:00 Pulse 75 03/27/21 14:00 Resp 16 03/27/21 14:00 BP 135/75 03/27/21 14:00 Pulse Ox 98 03/27/21 14:00 Intake & Output 03/26/21 03/27/21 03/27/21 18:59 06:59 18:59 Intake Total 1201 Output Total 150 Balance 1051 Weight 65.771 kg Intake: IV 1201 Output: Estimated Blood Loss 150 Other: # Voids 2 - Labs CBC & Chem 7: 03/27/21 14:34 03/27/21 10:06 Labs: Abnormal Lab Results - Last 24 Hours (Table) 03/26/21 03/26/21 03/27/21 Range/Units 16:43 20:16 06:36 WBC 10.65 H (4.50-10.00) X 10*3/uL RBC 3.59 L (4.40-5.60) X 10*6/uL Hgb 10.8 L (13.0-17.0) g/dL Hct 35.3 L (39.6-50.0) % MCV 98.3 H (80.0-97.0) fL MCHC 30.6 L (32.0-37.0) g/dL Neutrophils # (1.3-7.7) k/uL Lymphocytes # (1.0-4.8) k/uL Chloride (98-107) mmol/L Carbon Dioxide (20.0-27.5) mmol/L BUN (9.0-27.0) mg/dL Creatinine (0.6-1.5) mg/dL Est GFR (CKD-EPI)AfAm (60.0-200.0) Est GFR (CKD-EPI)NonAf (60.0-200.0) BUN/Creatinine Ratio (12.00-20.00) Ratio Glucose (70-110) mg/dL POC Glucose (mg/dL) 178 H 178 H (75-99) mg/dL Calcium (8.7-10.3) mg/dL 03/27/21 03/27/21 03/27/21 Range/Units 06:36 07:21 10:06 WBC (4.50-10.00) X 10*3/uL RBC (4.40-5.60) X 10*6/uL Hgb (13.0-17.0) g/dL Hct (39.6-50.0) % MCV (80.0-97.0) fL MCHC (32.0-37.0) g/dL Neutrophils # (1.3-7.7) k/uL Lymphocytes # (1.0-4.8) k/uL Chloride 110 H (98-107) mmol/L Carbon Dioxide 19.1 L (20.0-27.5) mmol/L BUN 68.4 H 75 H (9.0-27.0) mg/dL Creatinine 5.8 H 6.16 H (0.6-1.5) mg/dL Est GFR (CKD-EPI)AfAm 10.3 L (60.0-200.0) Est GFR (CKD-EPI)NonAf 8.9 L (60.0-200.0) BUN/Creatinine Ratio 11.79 L (12.00-20.00) Ratio Glucose 154 H 136 H (70-110) mg/dL POC Glucose (mg/dL) 150 H (75-99) mg/dL Calcium 7.9 L 7.5 L (8.7-10.3) mg/dL 03/27/21 03/27/21 03/27/21 Range/Units 12:33 13:45 14:34 WBC 10.9 H (4.50-10.00) X 10*3/uL RBC 3.63 L (4.40-5.60) X 10*6/uL Hgb 10.9 L (13.0-17.0) g/dL Hct 36.1 L (39.6-50.0) % MCV (80.0-97.0) fL MCHC 30.2 L (32.0-37.0) g/dL Neutrophils # 9.7 H (1.3-7.7) k/uL Lymphocytes # 0.6 L (1.0-4.8) k/uL Chloride (98-107) mmol/L Carbon Dioxide (20.0-27.5) mmol/L BUN (9.0-27.0) mg/dL Creatinine (0.6-1.5) mg/dL Est GFR (CKD-EPI)AfAm (60.0-200.0) Est GFR (CKD-EPI)NonAf (60.0-200.0) BUN/Creatinine Ratio (12.00-20.00) Ratio Glucose (70-110) mg/dL POC Glucose (mg/dL) 113 H 117 H (75-99) mg/dL Calcium (8.7-10.3) mg/dL
[2021-03-27] MEDS ORDERED: FUROSEMIDE 10 MG/ML 4 ML VIAL IV STA (15:42)
[2021-03-27 16:28] LABS: Glucose,Whole Blood 100 mg/dL (75-99)
[2021-03-27 19:30] LABS: Glucose,Whole Blood 160 mg/dL (75-99)
[2021-03-27 20:46] LABS: Glucose,Whole Blood 129 mg/dL (75-99)
--- NOTE | 2021-03-27 20:46 | FL ---
EXAMINATION TYPE: FL guidance operating room DATE OF EXAM: 03/27/2021 HISTORY: Fluoroscopy time 24 seconds of fluoroscopy provided. IMPRESSION: 1. Fluoroscopy time.
[2021-03-27] MEDS: HYDROcodone/APAP 5-325MG 1 EACH TAB PO PRN (20:57)
[2021-03-27] MEDS: ASPIRIN 81 MG PO SCH (20:59)
[2021-03-27] MEDS: SENNOSIDES-DOCUSATE SODIUM 1 EACH TAB PO SCH (21:04)
[2021-03-28] MEDS: Insulin Aspart (For Pump) 100 UNIT/ML VIAL SQ-PUMP SCH ×2 (00:43→11:59)
[2021-03-28 07:09] LABS: Glucose,Whole Blood 218 mg/dL (75-99)
[2021-03-28] MEDS: hydrALAZINE HCL 50 MG TAB PO SCH ×3 (07:16→20:57)
[2021-03-28] MEDS: HYDROcodone/APAP 5-325MG 1 EACH TAB PO PRN ×2 (07:16→21:02)
[2021-03-28] MEDS: carvediloL 6.25 MG TAB PO SCH ×2 (07:16→20:56)
[2021-03-28] MEDS: CALCIUM ACETATE 667 MG TAB PO SCH ×3 (07:16→16:58)
[2021-03-28] MEDS: FUROSEMIDE 40 MG TAB PO SCH (07:16)
[2021-03-28] MEDS: ASPIRIN 81 MG PO SCH ×2 (07:16→20:56)
[2021-03-28] MEDS: FERROUS SULFATE 325 MG TAB PO SCH (07:16)
[2021-03-28] MEDS: FAMOTIDINE 20 MG TAB PO SCH (07:17)
[2021-03-28] MEDS ORDERED: ERGOCALCIFEROL 1,250 MCG (50,000 IU) CAPSULE PO SCH (09:00)
--- NOTE | 2021-03-28 09:24 | P.PN ---
Subjective Patient is seen in follow-up for acute kidney injury on chronic kidney disease. Patient has chronic kidney disease stage V with creatinine of 4.6 from January 2021. Patient has a maturing AV fistula. Has a Zambrano catheter. Nonoliguric. No vomiting or diarrhea. Vital signs are stable. General: The patient appeared well nourished and normally developed. HEENT: Head exam is unremarkable. LUNGS: Breath sounds decreased. HEART: Rate and Rhythm are regular. ABDOMEN: Soft, no distention. EXTREMITITES: 1+ edema. Objective - Vital Signs Vital signs: Vital Signs Temp 98.5 F 03/28/21 07:46 Pulse 81 03/28/21 07:46 Resp 16 03/28/21 07:46 BP 153/57 03/28/21 07:46 Pulse Ox 94 L 03/28/21 07:46 Intake & Output 03/27/21 03/28/21 03/28/21 18:59 06:59 18:59 Intake Total 1201 Output Total 550 750 Balance 651 -750 Weight 65.771 kg Intake: IV 1201 Output: Drainage 150 Right Hip 150 Urine 400 600 Estimated Blood Loss 150 Other: Voiding Method Indwelling Catheter - Labs CBC & Chem 7: 03/27/21 14:34 03/27/21 10:06 Labs: Abnormal Lab Results - Last 24 Hours (Table) 03/27/21 03/27/21 03/27/21 Range/Units 06:36 06:36 10:06 WBC 10.65 H (4.50-10.00) X 10*3/uL RBC 3.59 L (4.40-5.60) X 10*6/uL Hgb 10.8 L (13.0-17.0) g/dL Hct 35.3 L (39.6-50.0) % MCV 98.3 H (80.0-97.0) fL MCHC 30.6 L (32.0-37.0) g/dL Neutrophils # (1.3-7.7) k/uL Lymphocytes # (1.0-4.8) k/uL Chloride 110 H (98-107) mmol/L Carbon Dioxide 19.1 L (20.0-27.5) mmol/L BUN 68.4 H 75 H (9.0-27.0) mg/dL Creatinine 5.8 H 6.16 H (0.6-1.5) mg/dL Est GFR (CKD-EPI)AfAm 10.3 L (60.0-200.0) Est GFR (CKD-EPI)NonAf 8.9 L (60.0-200.0) BUN/Creatinine Ratio 11.79 L (12.00-20.00) Ratio Glucose 154 H 136 H (70-110) mg/dL POC Glucose (mg/dL) (75-99) mg/dL Calcium 7.9 L 7.5 L (8.7-10.3) mg/dL 03/27/21 03/27/21 03/27/21 Range/Units 12:33 13:45 14:34 WBC 10.9 H (4.50-10.00) X 10*3/uL RBC 3.63 L (4.40-5.60) X 10*6/uL Hgb 10.9 L (13.0-17.0) g/dL Hct 36.1 L (39.6-50.0) % MCV (80.0-97.0) fL MCHC 30.2 L (32.0-37.0) g/dL Neutrophils # 9.7 H (1.3-7.7) k/uL Lymphocytes # 0.6 L (1.0-4.8) k/uL Chloride (98-107) mmol/L Carbon Dioxide (20.0-27.5) mmol/L BUN (9.0-27.0) mg/dL Creatinine (0.6-1.5) mg/dL Est GFR (CKD-EPI)AfAm (60.0-200.0) Est GFR (CKD-EPI)NonAf (60.0-200.0) BUN/Creatinine Ratio (12.00-20.00) Ratio Glucose (70-110) mg/dL POC Glucose (mg/dL) 113 H 117 H (75-99) mg/dL Calcium (8.7-10.3) mg/dL 03/27/21 03/27/21 03/27/21 Range/Units 16:27 19:14 20:44 WBC (4.50-10.00) X 10*3/uL RBC (4.40-5.60) X 10*6/uL Hgb (13.0-17.0) g/dL Hct (39.6-50.0) % MCV (80.0-97.0) fL MCHC (32.0-37.0) g/dL Neutrophils # (1.3-7.7) k/uL Lymphocytes # (1.0-4.8) k/uL Chloride (98-107) mmol/L Carbon Dioxide (20.0-27.5) mmol/L BUN (9.0-27.0) mg/dL Creatinine (0.6-1.5) mg/dL Est GFR (CKD-EPI)AfAm (60.0-200.0) Est GFR (CKD-EPI)NonAf (60.0-200.0) BUN/Creatinine Ratio (12.00-20.00) Ratio Glucose (70-110) mg/dL POC Glucose (mg/dL) 100 H 160 H 129 H (75-99) mg/dL Calcium (8.7-10.3) mg/dL 03/28/21 Range/Units 07:07 WBC (4.50-10.00) X 10*3/uL RBC (4.40-5.60) X 10*6/uL Hgb (13.0-17.0) g/dL Hct (39.6-50.0) % MCV (80.0-97.0) fL MCHC (32.0-37.0) g/dL Neutrophils # (1.3-7.7) k/uL Lymphocytes # (1.0-4.8) k/uL Chloride (98-107) mmol/L Carbon Dioxide (20.0-27.5) mmol/L BUN (9.0-27.0) mg/dL Creatinine (0.6-1.5) mg/dL Est GFR (CKD-EPI)AfAm (60.0-200.0) Est GFR (CKD-EPI)NonAf (60.0-200.0) BUN/Creatinine Ratio (12.00-20.00) Ratio Glucose (70-110) mg/dL POC Glucose (mg/dL) 218 H (75-99) mg/dL Calcium (8.7-10.3) mg/dL Assessment and Plan Plan: Assessment: 1. Chronic kidney disease stage V. Creatinine was 4.6 in January 2021. Creatinine 6.16 yesterday. Nonoliguric. Etiology is diabetic kidney disease. He has a maturing AV fistula - vascular surgeon is Dr. Brenner. 2. Hyperkalemia secondary to chronic kidney disease. Improved. 3. Diabetes mellitus. 4. Fall with right hip fracture. Surgery pending. 5. Chronic kidney disease mineral bone disease maintained on PhosLo. 6. Hypertension with chronic disease. Stable. Plan: Maintain Lasix. Strict I's and O's. Continue to assess daily for need for renal replacement therapy. No urgency at this time. Consult vascular surgery to obtain clearance for fistula use if needed.
--- NOTE | 2021-03-28 11:02 | P.PN ---
Subjective Progress Note Date: 03/28/21 This patient is a 71-year-old male with a past medical history of end-stage renal disease, hypertension, diabetes that is status-post right direct anterior hip hemiarthroplasty on 03/27/21. Today's postoperative day #1. The patient is seen and examined bedside. Patient states he is doing well this morning and has no complaints. He states the pain in his right hip has improved after surgery. Per nursing hemovac drain output was 150 mL overnight. He has not yet been up with physical therapy or out of bed. He is tolerating his diet well. He denies chest pain, shortness breath, nausea, vomiting, fevers, chills. He denies new numbness or tingling of the right lower extremity. Vital signs stable. Objective - Vital Signs Vital signs: Vital Signs Temp 98.5 F 03/28/21 07:46 Pulse 81 03/28/21 07:46 Resp 16 03/28/21 07:46 BP 153/57 03/28/21 07:46 Pulse Ox 94 L 03/28/21 07:46 Intake & Output 03/27/21 03/28/21 03/28/21 18:59 06:59 18:59 Intake Total 1201 Output Total 550 750 Balance 651 -750 Weight 65.771 kg Intake: IV 1201 Output: Drainage 150 Right Hip 150 Urine 400 600 Estimated Blood Loss 150 Other: Voiding Method Indwelling Catheter Indwelling Catheter - Exam On examination, the patient is sitting up in bed in no apparent distress. He is alert and oriented 3. On inspection of the right hip, there is a Prevena incisional wound VAC in place over the right anterior hip. There is also a Hemovac drain in place. There is mild swelling of the thigh, the thigh is soft and compressible. Patient has good strength and [id number] of the right ankle. Motor and sensory function is intact of the right lower extremity. Dorsalis pedis pulse +2, the right lower extremity is warm and well-perfused with brisk capillary refill distally. The calves are soft and nontender to palpation bilaterally. - Labs CBC & Chem 7: 03/27/21 14:34 03/27/21 10:06 Labs: Abnormal Lab Results - Last 24 Hours (Table) 03/27/21 03/27/21 03/27/21 Range/Units 06:36 12:33 13:45 WBC (3.8-10.6) k/uL RBC (4.30-5.90) m/uL Hgb (13.0-17.5) gm/dL Hct (39.0-53.0) % MCHC (31.0-37.0) g/dL Neutrophils # (1.3-7.7) k/uL Lymphocytes # (1.0-4.8) k/uL Carbon Dioxide 19.1 L (20.0-27.5) mmol/L BUN 68.4 H (9.0-27.0) mg/dL Creatinine 5.8 H (0.6-1.5) mg/dL Est GFR (CKD-EPI)AfAm 10.3 L (60.0-200.0) Est GFR (CKD-EPI)NonAf 8.9 L (60.0-200.0) BUN/Creatinine Ratio 11.79 L (12.00-20.00) Ratio Glucose 154 H (70-110) mg/dL POC Glucose (mg/dL) 113 H 117 H (75-99) mg/dL Calcium 7.9 L (8.7-10.3) mg/dL 03/27/21 03/27/21 03/27/21 Range/Units 14:34 16:27 19:14 WBC 10.9 H (3.8-10.6) k/uL RBC 3.63 L (4.30-5.90) m/uL Hgb 10.9 L (13.0-17.5) gm/dL Hct 36.1 L (39.0-53.0) % MCHC 30.2 L (31.0-37.0) g/dL Neutrophils # 9.7 H (1.3-7.7) k/uL Lymphocytes # 0.6 L (1.0-4.8) k/uL Carbon Dioxide (20.0-27.5) mmol/L BUN (9.0-27.0) mg/dL Creatinine (0.6-1.5) mg/dL Est GFR (CKD-EPI)AfAm (60.0-200.0) Est GFR (CKD-EPI)NonAf (60.0-200.0) BUN/Creatinine Ratio (12.00-20.00) Ratio Glucose (70-110) mg/dL POC Glucose (mg/dL) 100 H 160 H (75-99) mg/dL Calcium (8.7-10.3) mg/dL 03/27/21 03/28/21 Range/Units 20:44 07:07 WBC (3.8-10.6) k/uL RBC (4.30-5.90) m/uL Hgb (13.0-17.5) gm/dL Hct (39.0-53.0) % MCHC (31.0-37.0) g/dL Neutrophils # (1.3-7.7) k/uL Lymphocytes # (1.0-4.8) k/uL Carbon Dioxide (20.0-27.5) mmol/L BUN (9.0-27.0) mg/dL Creatinine (0.6-1.5) mg/dL Est GFR (CKD-EPI)AfAm (60.0-200.0) Est GFR (CKD-EPI)NonAf (60.0-200.0) BUN/Creatinine Ratio (12.00-20.00) Ratio Glucose (70-110) mg/dL POC Glucose (mg/dL) 129 H 218 H (75-99) mg/dL Calcium (8.7-10.3) mg/dL Assessment and Plan Assessment: Displaced right subcapital femoral neck fracture status-post right direct a nterior hip hemiarthroplasty on 03/27/21. Post-operative day #1. Plan: - Weight bear as tolerated on the operative extremity. Up with assistance, up with a walker. - Physical therapy for gait and balance training. - 2 doses of postoperative IV antibiotics complete. We will start the patient on doxycycline 100 mg PO BID for wound healing prophylaxis. - Keep Prevena incisional wound VAC in place. We'll plan to keep Hemovac drain in place until tomorrow. - Aspirin 81 mg BID for DVT prophylaxis, unless internal medicine has additional recommendations regarding chemoprophylaxis. - Medical management per internal medicine, nephrology. - Case management consulted for discharge planning. Anticipate discharge to rehab.
[2021-03-28 11:03] LABS: African American GFR (CKD) 9.2 (60.0-200.0); BUN/Creat Ratio 11.32 Ratio (12.00-20.00); Calcium 7.6 mg/dL (8.7-10.3); Carbon Dioxide 17.7 mmol/L (20.0-27.5); Magnesium 2.6 mg/dL (1.5-2.4); Non-African American GFR(CKD) 7.9 (60.0-200.0); Phosphorus 7.2 mg/dL (2.4-5.1); Potassium 5.2 mmol/L (3.5-5.5)
[2021-03-28 11:40] LABS: Glucose,Whole Blood 286 mg/dL (75-99)
[2021-03-28] MEDS: INSULIN ASPART (NovoLOG) 100 UNIT/ML VIAL SQ SCH ×3 (12:42→20:57)
--- NOTE | 2021-03-28 13:04 | P.GSCN ---
History of Present Illness Consult date: 03/28/21 Reason for Consult: #1: Appropriateness of left upper extremity AV fistula for dialysis access purposes. History of present illness: Patient is a 71-year-old male with a history of diarrhea most as well as disease approaching the need for dialysis. The patient had a left upper extremity AV fistula created approximately 3-4 weeks ago in the cephalic vein to brachial artery position. He reports no complaints in this regard. Past Medical History Past Medical History: Cancer, Diabetes Mellitus, Hyperlipidemia, Hypertension, Osteoarthritis (OA), Renal Disease Additional Past Medical History / Comment(s): skin CA, History of Any Multi-Drug Resistant Organisms: None Reported Past Surgical History: Adenoidectomy, Cholecystectomy, Tonsillectomy Additional Past Surgical History / Comment(s): skin CA,collette cataracts. fistula on left arm Past Anesthesia/Blood Transfusion Reactions: No Reported Reaction Additional Past Anesthesia/Blood Transfusion Reaction / Comm: no hx blood transfusion Past Psychological History: No Psychological Hx Reported Smoking Status: Never smoker Past Alcohol Use History: Occasional Past Drug Use History: None Reported - Past Family History Father Family Medical History: CVA/TIA, Hypertension Mother Family Medical History: No Reported History Sister(s) Family Medical History: Cancer Additional Family Medical History / Comment(s): Breast Medications and Allergies Home Medications Medication Instructions Recorded Confirmed Type Calcium Acetate [Phoslo] 667 mg PO TID-W/MEALS 12/01/20 03/25/21 History Carvedilol [Coreg] 6.25 mg PO BID 12/01/20 03/25/21 History Ergocalciferol [Vitamin D2 (1250 1,250 mcg PO SALMERON 12/01/20 03/25/21 History Mcg = [id number] Iu)] Ferrous Sulfate [Iron] 325 mg PO DAILY 12/01/20 03/25/21 History Furosemide [Lasix] 40 mg PO DAILY 12/01/20 03/25/21 History Insulin Aspart (For Pump) [NovoLOG 0.01 unit SQ-PUMP CONTINUOUS 12/01/20 03/25/21 History (For Pump)] Allergies Allergy/AdvReac Type Severity Reaction Status Date / Time No Known Allergies Allergy Verified 03/25/21 17:57 Surgical - Exam Osteopathic Statement: *. No significant issues noted on an osteopathic structural exam other than those noted in the History and Physical/Consult. Vital Signs Temp Pulse Resp BP Pulse Ox 98.2 F 77 18 224/87 99 03/25/21 16:06 03/25/21 16:06 03/25/21 16:06 03/25/21 16:06 03/25/21 16:06 There is a well-healed surgical wound in the antecubital fossa on the left. Also identified is a normal-appearing AV fistula. And is freely movable and nontender. I discussed the patient's situation with his operative surgeon, Dr. Donnie Brenner. Dr. Brenner it indicated that he saw the patient recently and had given the patient a prescription to give to advanced manufacturing technician/nurse's allowing them to begin the access his fistula for dialysis purposes. Thus the fistula can be used for dialysis purposes. Results - Labs 03/27/21 14:34 03/28/21 06:22 Abnormal Lab Results - Last 24 Hours (Table) 03/27/21 03/27/21 03/27/21 Range/Units 13:45 14:34 16:27 WBC 10.9 H (3.8-10.6) k/uL RBC 3.63 L (4.30-5.90) m/uL Hgb 10.9 L (13.0-17.5) gm/dL Hct 36.1 L (39.0-53.0) % MCHC 30.2 L (31.0-37.0) g/dL Neutrophils # 9.7 H (1.3-7.7) k/uL Lymphocytes # 0.6 L (1.0-4.8) k/uL Carbon Dioxide (20.0-27.5) mmol/L BUN (9.0-27.0) mg/dL Creatinine (0.6-1.5) mg/dL Est GFR (CKD-EPI)AfAm (60.0-200.0) Est GFR (CKD-EPI)NonAf (60.0-200.0) BUN/Creatinine Ratio (12.00-20.00) Ratio Glucose (70-110) mg/dL POC Glucose (mg/dL) 117 H 100 H (75-99) mg/dL Calcium (8.7-10.3) mg/dL Phosphorus (2.4-5.1) mg/dL Magnesium (1.5-2.4) mg/dL 03/27/21 03/27/21 03/28/21 Range/Units 19:14 20:44 06:22 WBC (3.8-10.6) k/uL RBC (4.30-5.90) m/uL Hgb (13.0-17.5) gm/dL Hct (39.0-53.0) % MCHC (31.0-37.0) g/dL Neutrophils # (1.3-7.7) k/uL Lymphocytes # (1.0-4.8) k/uL Carbon Dioxide 17.7 L (20.0-27.5) mmol/L BUN 72.0 H (9.0-27.0) mg/dL Creatinine 6.4 H (0.6-1.5) mg/dL Est GFR (CKD-EPI)AfAm 9.2 L (60.0-200.0) Est GFR (CKD-EPI)NonAf 7.9 L (60.0-200.0) BUN/Creatinine Ratio 11.32 L (12.00-20.00) Ratio Glucose 218 H (70-110) mg/dL POC Glucose (mg/dL) 160 H 129 H (75-99) mg/dL Calcium 7.6 L (8.7-10.3) mg/dL Phosphorus 7.2 H (2.4-5.1) mg/dL Magnesium 2.6 H (1.5-2.4) mg/dL 03/28/21 03/28/21 Range/Units 07:07 11:39 WBC (3.8-10.6) k/uL RBC (4.30-5.90) m/uL Hgb (13.0-17.5) gm/dL Hct (39.0-53.0) % MCHC (31.0-37.0) g/dL Neutrophils # (1.3-7.7) k/uL Lymphocytes # (1.0-4.8) k/uL Carbon Dioxide (20.0-27.5) mmol/L BUN (9.0-27.0) mg/dL Creatinine (0.6-1.5) mg/dL Est GFR (CKD-EPI)AfAm (60.0-200.0) Est GFR (CKD-EPI)NonAf (60.0-200.0) BUN/Creatinine Ratio (12.00-20.00) Ratio Glucose (70-110) mg/dL POC Glucose (mg/dL) 218 H 286 H (75-99) mg/dL Calcium (8.7-10.3) mg/dL Phosphorus (2.4-5.1) mg/dL Magnesium (1.5-2.4) mg/dL Diabetes panel 03/28/21 Range/Units 06:22 Sodium 138 (135-145) mmol/L Potassium 5.2 (3.5-5.5) mmol/L Chloride 105 (96-109) mmol/L Carbon Dioxide 17.7 L (20.0-27.5) mmol/L BUN 72.0 H (9.0-27.0) mg/dL Creatinine 6.4 H (0.6-1.5) mg/dL Glucose 218 H (70-110) mg/dL Calcium 7.6 L (8.7-10.3) mg/dL Calcium panel 03/28/21 Range/Units 06:22 Calcium 7.6 L (8.7-10.3) mg/dL Phosphorus 7.2 H (2.4-5.1) mg/dL Pituitary panel 03/28/21 Range/Units 06:22 Sodium 138 (135-145) mmol/L Potassium 5.2 (3.5-5.5) mmol/L Chloride 105 (96-109) mmol/L Carbon Dioxide 17.7 L (20.0-27.5) mmol/L BUN 72.0 H (9.0-27.0) mg/dL Creatinine 6.4 H (0.6-1.5) mg/dL Glucose 218 H (70-110) mg/dL Calcium 7.6 L (8.7-10.3) mg/dL Adrenal panel 03/28/21 Range/Units 06:22 Sodium 138 (135-145) mmol/L Potassium 5.2 (3.5-5.5) mmol/L Chloride 105 (96-109) mmol/L Carbon Dioxide 17.7 L (20.0-27.5) mmol/L BUN 72.0 H (9.0-27.0) mg/dL Creatinine 6.4 H (0.6-1.5) mg/dL Glucose 218 H (70-110) mg/dL Calcium 7.6 L (8.7-10.3) mg/dL Assessment and Plan Assessment: Usable left upper extremity AV fistula for dialysis access purposes. Plan: Please feel free to utilize the left upper extremity AV fistula for dialysis purposes. We will evaluate the patient in the future on an as-needed basis. Time with Patient: Less than 30
--- NOTE | 2021-03-28 14:16 | P.PN ---
Subjective Progress Note Date: 03/28/21 HISTORY OF PRESENT ILLNESS Is a 71-year-old male patient of Dr. Bright past medical history of diabetes mellitus type 1 on insulin pump, end-stage renal disease with fistula in the left arm not accessed as of yet, hypertension, hyperlipidemia, generalized osteoarthritis, skin cancer. Patient states that he had a slip and fall yesterday. There was a newspaper on the kitchen floor and he landed on his right hip, unable to get up. He called a friend who assisted him into the car and brought him in the hospital for further evaluation. X-ray found a right subcapital hip fracture. Chest x-ray reveals prominent bibasilar findings greater on the right. Evidence of mild cardiac silhouette enlargement. WBC 11.3, hemoglobin 11.9 and platelet count 412. Repeat chemistry today reveals sodium 141, potassium 5.2, chloride 112, CO2 21, BUN 69 creatinine 5.72. Blood sugars running between 194 and 285. Coronavirus PCR not detected. Patient is seen today on the [facility] floor, consult also placed with Dr. Reese. pATIENTunderwent the following procedures Right direct anterior hip hemiarthroplasty ON 03/27/21 with Application of negative pressure incisional wound VAC, right hip, Implants: Esme accolade C size #5 high offset cemented stem with 51 +0 bipolar femoral head FOR Displaced right subcapital femoral neck fracture . Postop pain is under control, no nausea vomiting, no bowel movement yet, O2 on room air, has Zambrano catheter draining clear urine. Weightbearing status is cu rrently pending 03/28: Patient's diet is not controlled while in the hospital, the nurse doesn't feel that she he is controlling his blood sugars adequately secondary to increased amount of His, did switch it to a NovoLog insulin scale, and when he gets out, he will be back on his insulin pump. We'll going to add 15 units of Levemir after is in, for I's and O's, no urinary retention noted. Hemodialysis, as per nephrology, repeat PCR Covid, for [place] placement most likely the next 24 hours for subacute rehab, weightbearing status, to be recommended by orthopedic surgeon REVIEW OF SYSTEMS Constitutional: No fever, no chills, no night sweats. No weight change. No weakness, fatigue or lethargy. No daytime sleepiness. EENT: No headache. No blurred vision or double vision, no loss of vision. No loss of Hearing, no ringing in the ears, no dizziness. No nasal drainage or congestion. No epistaxis. No sore throat. Lungs: No shortness of breath, cough, no sputum production. No wheezing. Cardiovascular: No chest pain, no lower extremity edema. No palpitations. No paroxysmal nocturnal dyspnea. No orthopnea. No lightheadedness or dizziness. No syncopal episodes. Abdominal: No abdominal pain. No nausea, vomiting. Chronic diarrhea. No constipation. No bloody or tarry stools. No loss of appetite. Genitourinary: No dysuria, increased frequency, urgency. No urinary retention. Musculoskeletal: No myalgias. No muscle weakness, no gait dysfunction, no frequent falls. No back pain. No neck pain. Reports right hip pain. Integumentary: No wounds, no lesions. No rash or pruritus. No unusual bruising. No change in hair or nails.Right hip, VISHNU drain, with edema, +1, and a wound VAC in place to go dressing, Aquacel silver Neurologic: No aphasia. No facial droop. No change in mentation. No head injury. No headache. No paralysis. No paresthesia. Psychiatric: No depression. No anxiety. No mood swings. Endocrine: Noted abnormal blood sugars. No weight change. No excessive sweating or thirst. No cold intolerance. PHYSICAL EXAMINATION Gen: This is a 71-year-old male, resting in bed. No acute distress noted. HEENT: Head is atraumatic, normocephalic. Pupils equal, round. Sclerae is anicteric. NECK: Supple. No JVD. No lymphadenopathy. No thyromegaly. LUNGS: Clear to auscultation. No wheezes or rhonchi. No intercostal retractions. HEART: Regular rate and rhythm. No murmur. ABDOMEN: Soft. Bowel sounds are present. No masses. No tenderness. EXTREMITIES: No pedal edema. No calf tenderness. NEUROLOGICAL: Patient is awake, alert and oriented x3. Cranial nerves 2 through 12 are grossly intact. ASSESSMENT AND PLAN 1. Right subcapital femoral fracture secondary to a slip and fall. Patient is scheduled for right hip hemiarthroplasty 03/27/21. Patient is medically cleared for surgical intervention. He is currently nonweightbearing on the right lower extremity and bedrest. Continue Dilaudid as needed for pain, Zofran added for nausea, incentive spirometry to reduce incidence of atelectasis and hospital-acquired pneumonia, DVT prophylaxis per orthopedics. 2. Diabetes mellitus type I on insulin pump. Patient to continue insulin pump. 3. End-stage renal disease secondary to diabetes. Consult with nephrology. Patient has not yet started hemodialysis, has fistula to the left arm. Zambrano for I's and O's, no episode of urinary retention, nephrology following vascular has okayed the use of the AV fistula for dialysis 4. Hypertension. Continue Lasix 40 mg daily, Coreg 6.25 mg twice daily. 5. Hyperlipidemia. 6. 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 Continue PhosLo 667 mg 3 times daily. 7. Anemia of chronic kidney disease. Continue ferrous sulfate 325 mg daily. 8. GI prophylaxis. Pepcid 20 mg daily. 9. DVT prophylaxis. Per orthopedics. 10. COVID-19 testing negative. Patient has been hospitalized during a pandemic. Patient will be admitted to the hospital for a minimum of 2 night stay. DISCHARGE PLAN Home or [facility]. Vital Signs - 24 hr 03/27/21 03/27/21 03/27/21 14:26 14:41 14:56 Temperature Pulse Rate [ 80 70 71 Benefits Consultant ] Pulse Rate [ Pulse Oximetery ] Respiratory Rate Blood Pressure 140/68 138/67 141/66 [Right Arm] O2 Sat by Pulse 97 93 L Oximetry 03/27/21 03/27/21 03/27/21 15:26 15:41 19:50 Temperature 97.5 F L Pulse Rate [ 74 70 Benefits Consultant ] Pulse Rate [ 77 Pulse Oximetery ] Respiratory Rate Blood Pressure 133/70 146/70 158/66 [Right Arm] O2 Sat by Pulse 94 L 94 L 98 Oximetry 03/28/21 03/28/21 03:06 07:46 Temperature 97.5 F L 98.5 F Pulse Rate [ Benefits Consultant ] Pulse Rate [ 78 81 Pulse Oximetery ] Respiratory 16 Rate Blood Pressure 141/63 153/57 [Right Arm] O2 Sat by Pulse 96 94 L Oximetry Laboratory Results - Last 24 Hours 03/27/21 03/27/21 03/27/21 14:34 16:27 19:14 WBC 10.9 H RBC 3.63 L Hgb 10.9 L Hct 36.1 L MCV 99.6 MCH 30.1 MCHC 30.2 L RDW 14.2 Plt Count 328 MPV 7.6 Neutrophils % 89 Lymphocytes % 5 Monocytes % 5 Eosinophils % 1 Basophils % 0 Neutrophils # 9.7 H Lymphocytes # 0.6 L Monocytes # 0.5 Eosinophils # 0.1 Basophils # 0.0 Hypochromasia Slight Sodium Potassium Chloride Carbon Dioxide Anion Gap BUN Creatinine Est GFR (CKD-EPI)AfAm Est GFR (CKD-EPI)NonAf BUN/Creatinine Ratio Glucose POC Glucose (mg/dL) 100 H 160 H POC Glu Project Specialist ID Adrianne Loya Sarah Calcium Phosphorus Magnesium 03/27/21 03/28/21 03/28/21 20:44 06:22 07:07 WBC RBC Hgb Hct MCV MCH MCHC RDW Plt Count MPV Neutrophils % Lymphocytes % Monocytes % Eosinophils % Basophils % Neutrophils # Lymphocytes # Monocytes # Eosinophils # Basophils # Hypochromasia Sodium 138 Potassium 5.2 Chloride 105 Carbon Dioxide 17.7 L Anion Gap 15.00 BUN 72.0 H Creatinine 6.4 H Est GFR (CKD-EPI)AfAm 9.2 L Est GFR (CKD-EPI)NonAf 7.9 L BUN/Creatinine Ratio 11.32 L Glucose 218 H POC Glucose (mg/dL) 129 H 218 H POC Glu Project Specialist ID Lamar Guy Vincenzo Adrianne Calcium 7.6 L Phosphorus 7.2 H Magnesium 2.6 H 03/28/21 11:39 WBC RBC Hgb Hct MCV MCH MCHC RDW Plt Count MPV Neutrophils % Lymphocytes % Monocytes % Eosinophils % Basophils % Neutrophils # Lymphocytes # Monocytes # Eosinophils # Basophils # Hypochromasia Sodium Potassium Chloride Carbon Dioxide Anion Gap BUN Creatinine Est GFR (CKD-EPI)AfAm Est GFR (CKD-EPI)NonAf BUN/Creatinine Ratio Glucose POC Glucose (mg/dL) 286 H POC Glu Project Specialist ID Adrianne Loya Calcium Phosphorus Magnesium Active Medications Hydrocodone Bitart/Acetaminophen (Hydrocodone/Apap 5-325mg 1 Each Tab) 1 each PO Q6HR PRN PRN Reason: Pain Scale 1 to 5 Last Admin: 03/28/21 07:16 Dose: 1 each Documented by: Hydrocodone Bitart/Acetaminophen (Hydrocodone/Apap 5-325mg 1 Each Tab) 2 each PO Q6HR PRN PRN Reason: Pain Scale 6 to 10 Aspirin (Aspirin 81 Mg) 81 mg PO BID [facility] Last Admin: 03/28/21 07:16 Dose: 81 mg Documented by: Calcium Acetate (Calcium Acetate 667 Mg Tab) 667 mg PO TID-W/MEALS [facility] Last Admin: 03/28/21 11:57 Dose: 667 mg Documented by: Carvedilol (Carvedilol 6.25 Mg Tab) 6.25 mg PO BID [facility] Last Admin: 03/28/21 07:16 Dose: 6.25 mg Documented by: Doxycycline Monohydrate (Doxycycline 100 Mg Cap) 100 mg PO BID [facility] Ergocalciferol (Ergocalciferol 1,250 Mcg (50,000 Iu) Capsule) 1,250 mcg PO SALMERON [facility] Last Admin: 03/28/21 07:16 Dose: 1,250 mcg Documented by: Famotidine (Famotidine 20 Mg Tab) 20 mg PO DAILY [facility] Last Admin: 03/28/21 07:17 Dose: 20 mg Documented by: Ferrous Sulfate (Ferrous Sulfate 325 Mg Tab) 325 mg PO DAILY [facility] Last Admin: 03/28/21 07:16 Dose: 325 mg Documented by: Furosemide (Furosemide 40 Mg Tab) 40 mg PO DAILY [facility] Last Admin: 03/28/21 07:16 Dose: 40 mg Documented by: Hydralazine HCl (Hydralazine Hcl 20 Mg/Ml 1 Ml Vial) 10 mg IVP Q4HR PRN PRN Reason: Blood Pressure - High Last Admin: 03/27/21 06:06 Dose: 10 mg Documented by: Hydralazine HCl (Hydralazine Hcl 50 Mg Tab) 100 mg PO TID [facility] Last Admin: 03/28/21 07:16 Dose: 100 mg Documented by: Hydromorphone HCl (Hydromorphone 0.5 Mg/0.5 Ml Syringe) 0.5 mg IVP Q6HR PRN PRN Reason: Pain Last Admin: 03/27/21 07:34 Dose: 0.5 mg Documented by: Hydroxyzine Pamoate (Hydroxyzine Pamoate 25 Mg Cap) 25 mg PO Q4HR PRN PRN Reason: Mild Nausea and/or Anxiety Insulin Aspart (Insulin Aspart (Novolog) 100 Unit/Ml Vial) [address] [facility]; Protocol Last Admin: 03/28/21 12:42 Dose: 5 unit Documented by: Naloxone HCl (Naloxone 0.4 Mg/Ml 1 Ml Vial) 0.2 mg IV Q2M PRN PRN Reason: Opioid Reversal Ondansetron HCl (Ondansetron 4 Mg/2 Ml Vial) 4 mg IVP Q6HR PRN PRN Reason: Nausea And Vomiting Senna/Docusate Sodium (Sennosides-Docusate Sodium 1 Each Tab) 2 each PO HS [facility] Last Admin: 03/27/21 21:04 Dose: Not Given Documented by: Objective - Vital Signs Vital signs: Vital Signs Temp 98.5 F 03/28/21 07:46 Pulse 81 03/28/21 07:46 Resp 16 03/28/21 07:46 BP 153/57 03/28/21 07:46 Pulse Ox 94 L 03/28/21 07:46 Intake & Output 03/27/21 03/28/21 03/28/21 18:59 06:59 18:59 Intake Total 1201 Output Total 550 750 Balance 651 -750 Weight 65.771 kg Intake: IV 1201 Output: Drainage 150 Right Hip 150 Urine 400 600 Estimated Blood Loss 150 Other: Voiding Method Indwelling Catheter Indwelling Catheter - Labs CBC & Chem 7: 03/27/21 14:34 03/28/21 06:22 Labs: Abnormal Lab Results - Last 24 Hours (Table) 03/27/21 03/27/21 03/27/21 Range/Units 14:34 16:27 19:14 WBC 10.9 H (3.8-10.6) k/uL RBC 3.63 L (4.30-5.90) m/uL Hgb 10.9 L (13.0-17.5) gm/dL Hct 36.1 L (39.0-53.0) % MCHC 30.2 L (31.0-37.0) g/dL Neutrophils # 9.7 H (1.3-7.7) k/uL Lymphocytes # 0.6 L (1.0-4.8) k/uL Carbon Dioxide (20.0-27.5) mmol/L BUN (9.0-27.0) mg/dL Creatinine (0.6-1.5) mg/dL Est GFR (CKD-EPI)AfAm (60.0-200.0) Est GFR (CKD-EPI)NonAf (60.0-200.0) BUN/Creatinine Ratio (12.00-20.00) Ratio Glucose (70-110) mg/dL POC Glucose (mg/dL) 100 H 160 H (75-99) mg/dL Calcium (8.7-10.3) mg/dL Phosphorus (2.4-5.1) mg/dL Magnesium (1.5-2.4) mg/dL 03/27/21 03/28/21 03/28/21 Range/Units 20:44 06:22 07:07 WBC (3.8-10.6) k/uL RBC (4.30-5.90) m/uL Hgb (13.0-17.5) gm/dL Hct (39.0-53.0) % MCHC (31.0-37.0) g/dL Neutrophils # (1.3-7.7) k/uL Lymphocytes # (1.0-4.8) k/uL Carbon Dioxide 17.7 L (20.0-27.5) mmol/L BUN 72.0 H (9.0-27.0) mg/dL Creatinine 6.4 H (0.6-1.5) mg/dL Est GFR (CKD-EPI)AfAm 9.2 L (60.0-200.0) Est GFR (CKD-EPI)NonAf 7.9 L (60.0-200.0) BUN/Creatinine Ratio 11.32 L (12.00-20.00) Ratio Glucose 218 H (70-110) mg/dL POC Glucose (mg/dL) 129 H 218 H (75-99) mg/dL Calcium 7.6 L (8.7-10.3) mg/dL Phosphorus 7.2 H (2.4-5.1) mg/dL Magnesium 2.6 H (1.5-2.4) mg/dL 03/28/21 Range/Units 11:39 WBC (3.8-10.6) k/uL RBC (4.30-5.90) m/uL Hgb (13.0-17.5) gm/dL Hct (39.0-53.0) % MCHC (31.0-37.0) g/dL Neutrophils # (1.3-7.7) k/uL Lymphocytes # (1.0-4.8) k/uL Carbon Dioxide (20.0-27.5) mmol/L BUN (9.0-27.0) mg/dL Creatinine (0.6-1.5) mg/dL Est GFR (CKD-EPI)AfAm (60.0-200.0) Est GFR (CKD-EPI)NonAf (60.0-200.0) BUN/Creatinine Ratio (12.00-20.00) Ratio Glucose (70-110) mg/dL POC Glucose (mg/dL) 286 H (75-99) mg/dL Calcium (8.7-10.3) mg/dL Phosphorus (2.4-5.1) mg/dL Magnesium (1.5-2.4) mg/dL
[2021-03-28 16:44] LABS: Glucose,Whole Blood 143 mg/dL (75-99)
[2021-03-28 20:10] LABS: Glucose,Whole Blood 229 mg/dL (75-99)
[2021-03-28] MEDS: SODIUM BICARBONATE TAB 650 MG TAB PO SCH (20:56)
[2021-03-28] MEDS: INSULIN DETEMIR (LEVEMIR) 100 UNIT/ML SYR SQ SCH (20:57)
[2021-03-28] MEDS: DOXYCYCLINE 100 MG CAP PO SCH (20:58)
[2021-03-28] MEDS: SENNOSIDES-DOCUSATE SODIUM 1 EACH TAB PO SCH (20:58)
[2021-03-29 07:17] LABS: Glucose,Whole Blood 136 mg/dL (75-99)
[2021-03-29] MEDS: SODIUM BICARBONATE TAB 650 MG TAB PO SCH ×2 (08:12→21:37)
[2021-03-29] MEDS: ASPIRIN 81 MG PO SCH ×2 (08:12→21:37)
[2021-03-29] MEDS: hydrALAZINE HCL 50 MG TAB PO SCH ×3 (08:12→21:37)
[2021-03-29] MEDS: FAMOTIDINE 20 MG TAB PO SCH (08:12)
[2021-03-29] MEDS: FUROSEMIDE 40 MG TAB PO SCH (08:13)
[2021-03-29] MEDS: FERROUS SULFATE 325 MG TAB PO SCH (08:13)
[2021-03-29] MEDS: CALCIUM ACETATE 667 MG TAB PO SCH ×3 (08:13→16:45)
[2021-03-29] MEDS: INSULIN ASPART (NovoLOG) 100 UNIT/ML VIAL SQ SCH ×4 (08:13→21:38)
[2021-03-29] MEDS: carvediloL 6.25 MG TAB PO SCH ×2 (08:13→21:37)
[2021-03-29] MEDS: DOXYCYCLINE 100 MG CAP PO SCH ×2 (08:19→21:37)
[2021-03-29 09:29] LABS: Basophils # (A) 0.03 X 10*3/uL (0.00-0.10); Basophils % (A) 0.3 %; Eosinophils # (A) 0.21 X 10*3/uL (0.04-0.35); Eosinophils % (A) 2.2 %; HCT 30.6 % (39.6-50.0); HGB 9.5 g/dL (13.0-17.0); Lymphocytes # (A) 0.89 X 10*3/uL (0.90-5.00); Lymphocytes % (A) 9.5 %; MCH 29.3 pg (27.0-32.0); MCV 94.4 fL (80.0-97.0); Mean Platelet Volume 10.9 fL (9.5-12.2); Monocytes # (A) 0.91 X 10*3/uL (0.20-1.00); Monocytes % (A) 9.7 %; Neutrophils # (A) 7.28 X 10*3/uL (1.80-7.70); Neutrophils % (A) 77.9 %; Platelet Count 315 X 10*3/uL (140-440); RBC 3.24 X 10*6/uL (4.40-5.60); RDW 13.7 % (11.5-14.5); WBC 9.36 X 10*3/uL (4.50-10.00)
--- NOTE | 2021-03-29 09:33 | P.PN ---
Subjective Patient is seen in follow-up for acute kidney injury on chronic kidney disease. Patient has chronic kidney disease stage V with creatinine of 4.6 from January 2021. Patient has a matured AV fistula and has been cleared for use by vascular surgery. Has a Zambrano catheter. Nonoliguric. Oral intake is fair. Vital signs are stable. General: The patient appeared well nourished and normally developed. HEENT: Head exam is unremarkable. LUNGS: Breath sounds decreased. HEART: Rate and Rhythm are regular. ABDOMEN: Soft, no distention. EXTREMITITES: 1+ edema. Objective - Vital Signs Vital signs: Vital Signs Temp 98.7 F 03/29/21 02:29 Pulse 77 03/29/21 02:29 Resp 19 03/28/21 19:30 BP 134/56 03/29/21 02:29 Pulse Ox 90 L 03/29/21 02:29 Intake & Output 03/28/21 03/29/21 03/29/21 18:59 06:59 18:59 Output Total 300 50 Balance -300 -50 Output: Drainage 100 50 Right Hip 100 50 Urine 200 Other: Voiding Method Indwelling Catheter Indwelling Catheter - Labs CBC & Chem 7: 03/27/21 14:34 03/28/21 06:22 Labs: Abnormal Lab Results - Last 24 Hours (Table) 03/28/21 03/28/21 03/28/21 Range/Units 06:22 11:39 16:41 Carbon Dioxide 17.7 L (20.0-27.5) mmol/L BUN 72.0 H (9.0-27.0) mg/dL Creatinine 6.4 H (0.6-1.5) mg/dL Est GFR (CKD-EPI)AfAm 9.2 L (60.0-200.0) Est GFR (CKD-EPI)NonAf 7.9 L (60.0-200.0) BUN/Creatinine Ratio 11.32 L (12.00-20.00) Ratio Glucose 218 H (70-110) mg/dL POC Glucose (mg/dL) 286 H 143 H (75-99) mg/dL Calcium 7.6 L (8.7-10.3) mg/dL Phosphorus 7.2 H (2.4-5.1) mg/dL Magnesium 2.6 H (1.5-2.4) mg/dL 03/28/21 03/29/21 Range/Units 20:09 07:15 Carbon Dioxide (20.0-27.5) mmol/L BUN (9.0-27.0) mg/dL Creatinine (0.6-1.5) mg/dL Est GFR (CKD-EPI)AfAm (60.0-200.0) Est GFR (CKD-EPI)NonAf (60.0-200.0) BUN/Creatinine Ratio (12.00-20.00) Ratio Glucose (70-110) mg/dL POC Glucose (mg/dL) 229 H 136 H (75-99) mg/dL Calcium (8.7-10.3) mg/dL Phosphorus (2.4-5.1) mg/dL Magnesium (1.5-2.4) mg/dL Assessment and Plan Plan: Assessment: 1. Chronic kidney disease stage V. Creatinine was 4.6 in January 2021. Creatinine 6.4 yesterday. Nonoliguric. Etiology is diabetic kidney disease. He has a matured AV fistula - vascular surgeon is Dr. Brenner - cleared for use. 2. Hyperkalemia secondary to chronic kidney disease. Improved. 3. Diabetes mellitus. 4. Fall with right hip fracture. Status post right hip hemiarthroplasty 03/27/2021. 5. Chronic kidney disease mineral bone disease maintained on PhosLo. 6. Hypertension with chronic disease. Stable. 7. Metabolic acidosis secondary to chronic kidney disease. On oral bicarb. Plan: Maintain Lasix. With progressive renal failure, initiate renal replacement therapy. Plan for first treatment of hemodialysis today and second treatment tomorrow. Patient has an AV fistula which has been cleared for use by vascular surgery. Outpatient dialysis to be set up by bilingual case manager.
[2021-03-29 11:01] LABS: Glucose,Whole Blood 164 mg/dL (75-99)
[2021-03-29 11:31] LABS: African American GFR (CKD) 8.3 (60.0-200.0); Anion Gap 12.7 mmol/L (10.00-18.00); BUN/Creat Ratio 11.12 Ratio (12.00-20.00); Blood Urea Nitrogen 77.4 mg/dL (9.0-27.0); Calcium 7.6 mg/dL (8.7-10.3); Carbon Dioxide 19.8 mmol/L (20.0-27.5); Magnesium 2.7 mg/dL (1.5-2.4); Non-African American GFR(CKD) 7.1 (60.0-200.0); Potassium 5.3 mmol/L (3.5-5.5)
[2021-03-29 11:50] LABS: Glucose,Whole Blood 157 mg/dL (75-99)
--- NOTE | 2021-03-29 11:50 | P.PN ---
Subjective Progress Note Date: 03/29/21 HISTORY OF PRESENT ILLNESS Is a 71-year-old male patient of Dr. Bright past medical history of diabetes mellitus type 1 on insulin pump, end-stage renal disease with fistula in the left arm not accessed as of yet, hypertension, hyperlipidemia, generalized osteoarthritis, skin cancer. Patient states that he had a slip and fall yesterday. There was a newspaper on the kitchen floor and he landed on his right hip, unable to get up. He called a friend who assisted him into the car and brought him in the hospital for further evaluation. X-ray found a right subcapital hip fracture. Chest x-ray reveals prominent bibasilar findings greater on the right. Evidence of mild cardiac silhouette enlargement. WBC 11.3, hemoglobin 11.9 and platelet count 412. Repeat chemistry today reveals sodium 141, potassium 5.2, chloride 112, CO2 21, BUN 69 creatinine 5.72. Blood sugars running between 194 and 285. Coronavirus PCR not detected. Patient is seen today on the [facility] floor, consult also placed with Dr. Reese. pATIENTunderwent the following procedures Right direct anterior hip hemiarthroplasty ON 03/27/21 with Application of negative pressure incisional wound VAC, right hip, Implants: Esme accolade C size #5 high offset cemented stem with 51 +0 bipolar femoral head FOR Displaced right subcapital femoral neck fracture . Postop pain is under control, no nausea vomiting, no bowel movement yet, O2 on room air, has Zambrano catheter draining clear urine. Weightbearing status is cu rrently pending 03/28: Patient's diet is not controlled while in the hospital, the nurse doesn't feel that she he is controlling his blood sugars adequately secondary to increased amount of His, did switch it to a NovoLog insulin scale, and when he gets out, he will be back on his insulin pump. We'll going to add 15 units of Levemir after is in, for I's and O's, no urinary retention noted. Hemodialysis, as per nephrology, repeat PCR Covid, for [place] placement most likely the next 24 hours for subacute rehab, weightbearing status, to be recommended by orthopedic surgeon 03/29: Patient has wound VAC in place to the right hip region. He is currently on oral Lasix which will be continued at discharge and we have added in some potassium. Zambrano catheter should be removed this morning. Patient states he is utilizing incentive spirometry and reaching 1500 ML's. He is currently on aspi rin for DVT prophylaxis. Discharge plan is for. Patient is cleared for discharge from medicine. REVIEW OF SYSTEMS Constitutional: No fever, no chills, no night sweats. No weight change. No weakness, fatigue or lethargy. No daytime sleepiness. EENT: No headache. No blurred vision or double vision, no loss of vision. No loss of Hearing, no ringing in the ears, no dizziness. No nasal drainage or congestion. No epistaxis. No sore throat. Lungs: No shortness of breath, cough, no sputum production. No wheezing. Cardiovascular: No chest pain, no lower extremity edema. No palpitations. No paroxysmal nocturnal dyspnea. No orthopnea. No lightheadedness or dizziness. No syncopal episodes. Abdominal: No abdominal pain. No nausea, vomiting. Chronic diarrhea. No constipation. No bloody or tarry stools. No loss of appetite. Genitourinary: No dysuria, increased frequency, urgency. No urinary retention. Musculoskeletal: No myalgias. No muscle weakness, no gait dysfunction, no frequent falls. No back pain. No neck pain. Reports right hip pain. Integumentary: No wounds, no lesions. No rash or pruritus. No unusual bruising. No change in hair or nails.Right hip, VISHNU drain, with edema, +1, and a wound VAC in place to go dressing, Aquacel silver Neurologic: No aphasia. No facial droop. No change in mentation. No head injury. No headache. No paralysis. No paresthesia. Psychiatric: No depression. No anxiety. No mood swings. Endocrine: Noted abnormal blood sugars. No weight change. No excessive sweating or thirst. No cold intolerance. PHYSICAL EXAMINATION Gen: This is a 71-year-old male, resting in bed. No acute distress noted. HEENT: Head is atraumatic, normocephalic. Pupils equal, round. Sclerae is anicteric. NECK: Supple. No JVD. No lymphadenopathy. No thyromegaly. LUNGS: Clear to auscultation. No wheezes or rhonchi. No intercostal retractions. HEART: Regular rate and rhythm. No murmur. ABDOMEN: Soft. Bowel sounds are present. No masses. No tenderness. EXTREMITIES: No pedal edema. No calf tenderness. Wound VAC in place to the right hip. NEUROLOGICAL: Patient is awake, alert and oriented x3. Cranial nerves 2 through 12 are grossly intact. ASSESSMENT AND PLAN 1. Right subcapital femoral fracture secondary to a slip and fall. Patient is scheduled for right hip hemiarthroplasty 03/27/21. Patient is medically cleared for discharge to rehab. He is currently nonweightbearing on the right lower extremity and bedrest. Continue Madelia as needed for pain, Zofran added for nausea, incentive spirometry to reduce incidence of atelectasis and hospital-acquired pneumonia, DVT prophylaxis per orthopedics is aspirin. 2. Diabetes mellitus type I on insulin pump. Patient be transitioned to insulin pump. 3. End-stage renal disease secondary to diabetes. Consult with nephrology. Patient has not yet started hemodialysis, has fistula to the left arm. Zambrano for I's and O's, no episode of urinary retention, nephrology following vascular has okayed the use of the AV fistula for dialysis 4. Hypertension. Continue Lasix 40 mg daily, Coreg 6.25 mg twice daily. 5. Hyperlipidemia. 6. 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 Continue PhosLo 667 mg 3 times daily. 7. Anemia of chronic kidney disease. Continue ferrous sulfate 325 mg daily. 8. GI prophylaxis. Pepcid 20 mg daily. 9. DVT prophylaxis. Per orthopedics. 10. COVID-19 testing negative. Patient has been hospitalized during a pandemic. DISCHARGE PLAN [facility]. Impression and plan of care have been directed as dictated by the signing physician. Marlena Santa nurse practitioner acting as scribe for signing physician. Objective - Vital Signs Vital signs: Vital Signs Temp 98 F 03/29/21 08:20 Pulse 85 03/29/21 08:20 Resp 17 03/29/21 08:20 BP 179/69 03/29/21 08:20 Pulse Ox 90 L 03/29/21 08:20 Intake & Output 03/28/21 03/29/21 03/29/21 18:59 06:59 18:59 Output Total 300 50 Balance -300 -50 Output: Drainage 100 50 Right Hip 100 50 Urine 200 Other: Voiding Method Indwelling Catheter Indwelling Catheter - Labs CBC & Chem 7: 03/29/21 06:35 03/29/21 06:35 Labs: Abnormal Lab Results - Last 24 Hours (Table) 03/28/21 03/28/21 03/28/21 Range/Units 06:22 11:39 16:41 RBC (4.40-5.60) X 10*6/uL Hgb (13.0-17.0) g/dL Hct (39.6-50.0) % MCHC (32.0-37.0) g/dL Lymphocytes # (0.90-5.00) X 10*3/uL Carbon Dioxide 17.7 L (20.0-27.5) mmol/L BUN 72.0 H (9.0-27.0) mg/dL Creatinine 6.4 H (0.6-1.5) mg/dL Est GFR (CKD-EPI)AfAm 9.2 L (60.0-200.0) Est GFR (CKD-EPI)NonAf 7.9 L (60.0-200.0) BUN/Creatinine Ratio 11.32 L (12.00-20.00) Ratio Glucose 218 H (70-110) mg/dL POC Glucose (mg/dL) 286 H 143 H (75-99) mg/dL Calcium 7.6 L (8.7-10.3) mg/dL Phosphorus 7.2 H (2.4-5.1) mg/dL Magnesium 2.6 H (1.5-2.4) mg/dL 03/28/21 03/29/21 03/29/21 Range/Units 20:09 06:35 07:15 RBC 3.24 L (4.40-5.60) X 10*6/uL Hgb 9.5 L (13.0-17.0) g/dL Hct 30.6 L (39.6-50.0) % MCHC 31.0 L (32.0-37.0) g/dL Lymphocytes # 0.89 L (0.90-5.00) X 10*3/uL Carbon Dioxide (20.0-27.5) mmol/L BUN (9.0-27.0) mg/dL Creatinine (0.6-1.5) mg/dL Est GFR (CKD-EPI)AfAm (60.0-200.0) Est GFR (CKD-EPI)NonAf (60.0-200.0) BUN/Creatinine Ratio (12.00-20.00) Ratio Glucose (70-110) mg/dL POC Glucose (mg/dL) 229 H 136 H (75-99) mg/dL Calcium (8.7-10.3) mg/dL Phosphorus (2.4-5.1) mg/dL Magnesium (1.5-2.4) mg/dL
--- NOTE | 2021-03-29 12:40 | P.PN ---
Subjective Progress Note Date: 03/29/21 This patient is a 71-year-old male with a past medical history of end-stage renal disease, hypertension, diabetes that is status-post right direct anterior hip hemiarthroplasty on 03/27/21. Today's post-operative day #2. Patient is seen and examined bedside this morning. He is states he is doing well and his right hip pain is well-controlled at this time. He states he was not up walking yesterday. Per nursing his hemovac drain output was 50mL overnight. Patient has no complaints or concerns today. He will begin hemodialysis today. Patient denies chest pain, shortness of breath, nausea, vomiting. Vital signs stable. Objective - Vital Signs Vital signs: Vital Signs Temp 98 F 03/29/21 08:20 Pulse 85 03/29/21 08:20 Resp 17 03/29/21 08:20 BP 179/69 03/29/21 08:20 Pulse Ox 90 L 03/29/21 08:20 Intake & Output 03/28/21 03/29/21 03/29/21 18:59 06:59 18:59 Output Total 300 50 Balance -300 -50 Output: Drainage 100 50 Right Hip 100 50 Urine 200 Other: Voiding Method Indwelling Catheter Indwelling Catheter Indwelling Catheter - Exam On examination, the patient is sitting up in bed in no apparent distress. He is alert and oriented 3. On inspection of the right hip, there is a Prevena incisional wound VAC in place over the right anterior hip. There is also a Hemovac drain in place, which was pulled bedside this morning. There is mild swelling of the thigh, the thigh is soft and compressible. Patient has good strength and [id number] of the right ankle. Motor and sensory function is intact of the right lower extremity. Dorsalis pedis pulse +2, the right lower extremity is warm and well-perfused with brisk capillary refill distally. The calves are soft and nontender to palpation bilaterally. - Labs CBC & Chem 7: 03/29/21 06:35 03/29/21 06:35 Labs: Abnormal Lab Results - Last 24 Hours (Table) 03/28/21 03/28/21 03/29/21 Range/Units 16:41 20:09 06:35 RBC 3.24 L (4.40-5.60) X 10*6/uL Hgb 9.5 L (13.0-17.0) g/dL Hct 30.6 L (39.6-50.0) % MCHC 31.0 L (32.0-37.0) g/dL Lymphocytes # 0.89 L (0.90-5.00) X 10*3/uL Carbon Dioxide (20.0-27.5) mmol/L BUN (9.0-27.0) mg/dL Creatinine (0.6-1.5) mg/dL Est GFR (CKD-EPI)AfAm (60.0-200.0) Est GFR (CKD-EPI)NonAf (60.0-200.0) BUN/Creatinine Ratio (12.00-20.00) Ratio Glucose (70-110) mg/dL POC Glucose (mg/dL) 143 H 229 H (75-99) mg/dL Calcium (8.7-10.3) mg/dL Magnesium (1.5-2.4) mg/dL 03/29/21 03/29/21 03/29/21 Range/Units 06:35 07:15 11:00 RBC (4.40-5.60) X 10*6/uL Hgb (13.0-17.0) g/dL Hct (39.6-50.0) % MCHC (32.0-37.0) g/dL Lymphocytes # (0.90-5.00) X 10*3/uL Carbon Dioxide 19.8 L (20.0-27.5) mmol/L BUN 77.4 H (9.0-27.0) mg/dL Creatinine 7.0 H (0.6-1.5) mg/dL Est GFR (CKD-EPI)AfAm 8.3 L (60.0-200.0) Est GFR (CKD-EPI)NonAf 7.1 L (60.0-200.0) BUN/Creatinine Ratio 11.12 L (12.00-20.00) Ratio Glucose 132 H (70-110) mg/dL POC Glucose (mg/dL) 136 H 164 H (75-99) mg/dL Calcium 7.6 L (8.7-10.3) mg/dL Magnesium 2.7 H (1.5-2.4) mg/dL 12/20/21 Range/Units 11:49 RBC (4.40-5.60) X 10*6/uL Hgb (13.0-17.0) g/dL Hct (39.6-50.0) % MCHC (32.0-37.0) g/dL Lymphocytes # (0.90-5.00) X 10*3/uL Carbon Dioxide (20.0-27.5) mmol/L BUN (9.0-27.0) mg/dL Creatinine (0.6-1.5) mg/dL Est GFR (CKD-EPI)AfAm (60.0-200.0) Est GFR (CKD-EPI)NonAf (60.0-200.0) BUN/Creatinine Ratio (12.00-20.00) Ratio Glucose (70-110) mg/dL POC Glucose (mg/dL) 157 H (75-99) mg/dL Calcium (8.7-10.3) mg/dL Magnesium (1.5-2.4) mg/dL Assessment and Plan Assessment: Displaced right subcapital femoral neck fracture status-post right direct anterior hip hemiarthroplasty on 03/27/21. Post-operative day #2. Plan: - Weight bear as tolerated on the operative extremity. Up with assistance, up with a walker. - Physical therapy for gait and balance training. - Doxycycline 100 mg PO BID for 2 weeks for wound healing prophylaxis. - Keep Prevena incisional wound VAC in place. Hemovac drain was removed bedside. - Aspirin 81 mg BID for DVT prophylaxis, unless internal medicine has additional recommendations regarding chemoprophylaxis. - Medical management per internal medicine, nephrology. - Case management consulted for discharge planning. Anticipate discharge to rehab tomorrow.
[2021-03-29 16:55] LABS: Glucose,Whole Blood 177 mg/dL (75-99)
--- NOTE | 2021-03-29 19:35 | CT ---
EXAMINATION TYPE: CT hip RT wo con DATE OF EXAM: 03/29/2021 COMPARISON: None HISTORY: post-op CT DLP: 611.7 mGycm Automated exposure control for dose reduction was used. Images obtained from the mid ileum to the mid shaft of the femur without contrast. There is right hip prosthesis. Components appear in anatomic position. Detail limited by the metal ar tifact. There is soft tissue air around the right hip related to recent surgery. The visualized right hemipelvis is intact. Right sacroiliac joint is intact. There is atherosclerotic vascular calcificat ion. There is no evidence of femoral shaft fracture. I see no focal bone destruction. IMPRESSION: Right hip prosthesis in good position. Soft tissue air and postsurgical changes. Mild subcutaneous ed carlos manuel over the lateral right hip. Subcutaneous edema around the proximal thigh. No drainable fluid renetta ection seen.
[2021-03-29 20:15] LABS: Glucose,Whole Blood 221 mg/dL (75-99)
[2021-03-29] MEDS: SENNOSIDES-DOCUSATE SODIUM 1 EACH TAB PO SCH (21:37)
[2021-03-29] MEDS: INSULIN DETEMIR (LEVEMIR) 100 UNIT/ML SYR SQ SCH (21:38)
[2021-03-30] MEDS: INSULIN ASPART (NovoLOG) 100 UNIT/ML VIAL SQ SCH ×4 (07:12→21:54)
[2021-03-30 07:20] LABS: Glucose,Whole Blood 102 mg/dL (75-99)
[2021-03-30 08:44] LABS: Basophils % (A) 0 %; Eosinophils # (A) 0.1 k/uL (0-0.7); Eosinophils % (A) 2 %; HCT 31.3 % (39.0-53.0); HGB 10.2 gm/dL (13.0-17.5); Hypochromasia Slight; Lymphocytes # (A) 0.7 k/uL (1.0-4.8); Lymphocytes % (A) 8 %; MCH 31.5 pg (25.0-35.0); MCHC 32.5 g/dL (31.0-37.0); Mean Platelet Volume 8.7; Monocytes # (A) 0.6 k/uL (0-1.0); Monocytes % (A) 8 %; Neutrophils # (A) 6.5 k/uL (1.3-7.7); Neutrophils % (A) 81 %; Platelet Count 305 k/uL (150-450); RBC 3.23 m/uL (4.30-5.90); RDW 13.8 % (11.5-15.5); WBC 8.1 k/uL (3.8-10.6)
--- NOTE | 2021-03-30 09:25 | P.PN ---
Subjective Patient is seen in follow-up for progressive kidney disease. Patient has chronic kidney disease stage V with creatinine of 4.6 from January 2021. Patient has a matured AV fistula and has been cleared for use by vascular surgery. Started on hemodialysis 03/29/2021. Has a Zambrano catheter. Nonoliguric. Oral intake is fair. Vital signs are stable. General: The patient appeared well nourished and normally developed. HEENT: Head exam is unremarkable. LUNGS: Breath sounds decreased. HEART: Rate and Rhythm are regular. ABDOMEN: Soft, no distention. EXTREMITITES: 1+ edema. Objective - Vital Signs Vital signs: Vital Signs Temp 98.3 F 03/30/21 08:00 Pulse 79 03/30/21 08:00 Resp 16 03/30/21 08:00 BP 174/66 03/30/21 08:00 Pulse Ox 91 L 03/30/21 08:00 Intake & Output 03/29/21 03/30/21 03/30/21 18:59 06:59 18:59 Intake Total 300 Output Total 1700 Balance -1400 Intake: Hemodialysis 300 Output: Urine 500 Hemodialysis 1200 Other: Voiding Method Indwelling Catheter - Labs CBC & Chem 7: 03/30/21 06:19 03/29/21 06:35 Labs: Abnormal Lab Results - Last 24 Hours (Table) 03/29/21 03/29/21 03/29/21 Range/Units 06:35 06:35 11:00 RBC 3.24 L (4.40-5.60) X 10*6/uL Hgb 9.5 L (13.0-17.0) g/dL Hct 30.6 L (39.6-50.0) % MCHC 31.0 L (32.0-37.0) g/dL Lymphocytes # 0.89 L (0.90-5.00) X 10*3/uL Carbon Dioxide 19.8 L (20.0-27.5) mmol/L BUN 77.4 H (9.0-27.0) mg/dL Creatinine 7.0 H (0.6-1.5) mg/dL Est GFR (CKD-EPI)AfAm 8.3 L (60.0-200.0) Est GFR (CKD-EPI)NonAf 7.1 L (60.0-200.0) BUN/Creatinine Ratio 11.12 L (12.00-20.00) Ratio Glucose 132 H (70-110) mg/dL POC Glucose (mg/dL) 164 H (75-99) mg/dL Calcium 7.6 L (8.7-10.3) mg/dL Magnesium 2.7 H (1.5-2.4) mg/dL 03/29/21 03/29/21 03/29/21 Range/Units 11:49 16:53 20:14 RBC (4.40-5.60) X 10*6/uL Hgb (13.0-17.0) g/dL Hct (39.6-50.0) % MCHC (32.0-37.0) g/dL Lymphocytes # (0.90-5.00) X 10*3/uL Carbon Dioxide (20.0-27.5) mmol/L BUN (9.0-27.0) mg/dL Creatinine (0.6-1.5) mg/dL Est GFR (CKD-EPI)AfAm (60.0-200.0) Est GFR (CKD-EPI)NonAf (60.0-200.0) BUN/Creatinine Ratio (12.00-20.00) Ratio Glucose (70-110) mg/dL POC Glucose (mg/dL) 157 H 177 H 221 H (75-99) mg/dL Calcium (8.7-10.3) mg/dL Magnesium (1.5-2.4) mg/dL 03/30/21 03/30/21 Range/Units 06:19 07:09 RBC 3.23 L (4.40-5.60) X 10*6/uL Hgb 10.2 L (13.0-17.0) g/dL Hct 31.3 L (39.6-50.0) % MCHC (32.0-37.0) g/dL Lymphocytes # 0.7 L (0.90-5.00) X 10*3/uL Carbon Dioxide (20.0-27.5) mmol/L BUN (9.0-27.0) mg/dL Creatinine (0.6-1.5) mg/dL Est GFR (CKD-EPI)AfAm (60.0-200.0) Est GFR (CKD-EPI)NonAf (60.0-200.0) BUN/Creatinine Ratio (12.00-20.00) Ratio Glucose (70-110) mg/dL POC Glucose (mg/dL) 102 H (75-99) mg/dL Calcium (8.7-10.3) mg/dL Magnesium (1.5-2.4) mg/dL Assessment and Plan Plan: Assessment: 1. Chronic kidney disease stage V. Creatinine was 4.6 in January 2021. Creatinine 7.0 yesterday. Nonoliguric. Etiology is diabetic kidney disease. He has a matured AV fistula - vascular surgeon is Dr. Brenner - cleared for use. Started on hemodialysis 03/29/2021. 2. Hyperkalemia secondary to chronic kidney disease. Improved. 3. Diabetes mellitus. 4. Fall with right hip fracture. Status post right hip hemiarthroplasty 03/27/2021. 5. Chronic kidney disease mineral bone disease maintained on PhosLo. 6. Hypertension with chronic disease. Blood pressure at this morning. Has not received medication yet. 7. Metabolic acidosis secondary to chronic kidney disease. On oral bicarb. Expect further improvement with dialysis. Plan: Currently seen while undergoing hemodialysis. Third treatment tomorrow. Maintain Lasix. Outpatient dialysis to be set up by case management rn. Okay to remove Zambrano catheter from nephrology standpoint.
[2021-03-30] MEDS: FERROUS SULFATE 325 MG TAB PO SCH (10:40)
[2021-03-30] MEDS: ASPIRIN 81 MG PO SCH ×2 (10:40→21:55)
[2021-03-30] MEDS: CALCIUM ACETATE 667 MG TAB PO SCH ×3 (10:40→17:03)
[2021-03-30] MEDS: SODIUM BICARBONATE TAB 650 MG TAB PO SCH ×2 (10:40→21:55)
[2021-03-30] MEDS: FUROSEMIDE 40 MG TAB PO SCH (10:40)
[2021-03-30] MEDS: DOXYCYCLINE 100 MG CAP PO SCH ×2 (10:40→21:55)
[2021-03-30] MEDS: carvediloL 6.25 MG TAB PO SCH ×2 (10:40→21:55)
[2021-03-30] MEDS: hydrALAZINE HCL 50 MG TAB PO SCH ×3 (10:40→21:55)
[2021-03-30] MEDS: FAMOTIDINE 20 MG TAB PO SCH (10:41)
[2021-03-30 11:47] LABS: Glucose,Whole Blood 131 mg/dL (75-99)
[2021-03-30 12:02] LABS: African American GFR (CKD) 9.5 (60.0-200.0); Anion Gap 14.5 mmol/L (10.00-18.00); BUN/Creat Ratio 11.63 Ratio (12.00-20.00); Blood Urea Nitrogen 72.1 mg/dL (9.0-27.0); Calcium 7.5 mg/dL (8.7-10.3); Carbon Dioxide 20.5 mmol/L (20.0-27.5); Magnesium 2.6 mg/dL (1.5-2.4); Non-African American GFR(CKD) 8.2 (60.0-200.0); Potassium 5.1 mmol/L (3.5-5.5)
--- NOTE | 2021-03-30 12:27 | P.PN ---
Subjective Progress Note Date: 03/30/21 This patient is a 71-year-old male with a past medical history of end-stage renal disease, hypertension, diabetes that is status-post right direct anterior hip hemiarthroplasty on 03/27/21. Today's post-operative day #3. Patient is seen and examined bedside this morning. He is currently undergoing hemodialysis. Patient states he was up with physical therapy to the chair yesterday with only mild pain in the right hip. He denies hip pain currently. CT scan of the right hip obtained yesterday shows no evidence of andriy-prosthetic fracture. His hemovac drain was pulled yesterday. He overall feels well with no new complaints. He denies chest pain, shortness of breath, nausea, vomiting. Vital signs stable. Objective - Vital Signs Vital signs: Vital Signs Temp 98.3 F 03/30/21 08:00 Pulse 79 03/30/21 08:00 Resp 16 03/30/21 08:00 BP 174/66 03/30/21 08:00 Pulse Ox 91 L 03/30/21 08:00 Intake & Output 03/29/21 03/30/21 03/30/21 18:59 06:59 18:59 Intake Total 300 Output Total 1700 Balance -1400 Intake: Hemodialysis 300 Output: Urine 500 Hemodialysis 1200 Other: Voiding Method Indwelling Catheter - Exam On examination, the patient is sitting up in bed in no apparent distress. He is alert and oriented 3. Currently undergoing hemodialysis. On inspection of the right hip, there is a Prevena incisional wound VAC in place over the right anterior hip. There is mild swelling of the thigh, the thigh is soft and compressible. Patient has good strength and [id number] of the right ankle. Motor and sensory function is intact of the right lower extremity. Dorsalis pedis pulse +2, the right lower extremity is warm and well-perfused with brisk capillary refill distally. The calves are soft and nontender to palpation bilaterally. - Labs CBC & Chem 7: 03/30/21 06:19 03/30/21 06:19 Labs: Abnormal Lab Results - Last 24 Hours (Table) 03/29/21 03/29/21 03/30/21 Range/Units 16:53 20:14 06:19 RBC (4.30-5.90) m/uL Hgb (13.0-17.5) gm/dL Hct (39.0-53.0) % Lymphocytes # (1.0-4.8) k/uL Sodium 134 L (135-145) mmol/L BUN 72.1 H (9.0-27.0) mg/dL Creatinine 6.2 H (0.6-1.5) mg/dL Est GFR (CKD-EPI)AfAm 9.5 L (60.0-200.0) Est GFR (CKD-EPI)NonAf 8.2 L (60.0-200.0) BUN/Creatinine Ratio 11.63 L (12.00-20.00) Ratio POC Glucose (mg/dL) 177 H 221 H (75-99) mg/dL Calcium 7.5 L (8.7-10.3) mg/dL Magnesium 2.6 H (1.5-2.4) mg/dL 03/30/21 03/30/21 03/30/21 Range/Units 06:19 07:09 11:45 RBC 3.23 L (4.30-5.90) m/uL Hgb 10.2 L (13.0-17.5) gm/dL Hct 31.3 L (39.0-53.0) % Lymphocytes # 0.7 L (1.0-4.8) k/uL Sodium (135-145) mmol/L BUN (9.0-27.0) mg/dL Creatinine (0.6-1.5) mg/dL Est GFR (CKD-EPI)AfAm (60.0-200.0) Est GFR (CKD-EPI)NonAf (60.0-200.0) BUN/Creatinine Ratio (12.00-20.00) Ratio POC Glucose (mg/dL) 102 H 131 H (75-99) mg/dL Calcium (8.7-10.3) mg/dL Magnesium (1.5-2.4) mg/dL Assessment and Plan Assessment: Displaced right subcapital femoral neck fracture status-post right direct anterior hip hemiarthroplasty on 03/27/21. Post-operative day #3. Plan: - Weight bear as tolerated on the operative extremity. Up with assistance, up with a walker. - Physical therapy for gait and balance training. - Doxycycline 100 mg PO BID for 2 weeks for wound healing prophylaxis. - Keep Prevena incisional wound VAC in place. - Aspirin 81 mg BID for DVT prophylaxis, unless internal medicine has additional recommendations regarding chemoprophylaxis. - Medical management per internal medicine, nephrology. - Plan for discharge to rehab when medically cleared. Per nephrology, patient will need third hemodialysis treatment tomorrow.
--- NOTE | 2021-03-30 14:57 | P.PN ---
Subjective Progress Note Date: 03/30/21 HISTORY OF PRESENT ILLNESS Is a 71-year-old male patient of Dr. Bright past medical history of diabetes mellitus type 1 on insulin pump, end-stage renal disease with fistula in the left arm not accessed as of yet, hypertension, hyperlipidemia, generalized osteoarthritis, skin cancer. Patient states that he had a slip and fall yesterday. There was a newspaper on the kitchen floor and he landed on his right hip, unable to get up. He called a friend who assisted him into the car and brought him in the hospital for further evaluation. X-ray found a right subcapital hip fracture. Chest x-ray reveals prominent bibasilar findings greater on the right. Evidence of mild cardiac silhouette enlargement. WBC 11.3, hemoglobin 11.9 and platelet count 412. Repeat chemistry today reveals sodium 141, potassium 5.2, chloride 112, CO2 21, BUN 69 creatinine 5.72. Blood sugars running between 194 and 285. Coronavirus PCR not detected. Patient is seen today on the [facility] floor, consult also placed with Dr. Reese. pATIENTunderwent the following procedures Right direct anterior hip hemiarthroplasty ON 03/27/21 with Application of negative pressure incisional wound VAC, right hip, Implants: Esme accolade C size #5 high offset cemented stem with 51 +0 bipolar femoral head FOR Displaced right subcapital femoral neck fracture . Postop pain is under control, no nausea vomiting, no bowel movement yet, O2 on room air, has Zambrano catheter draining clear urine. Weightbearing status is cu rrently pending 03/28: Patient's diet is not controlled while in the hospital, the nurse doesn't feel that she he is controlling his blood sugars adequately secondary to increased amount of His, did switch it to a NovoLog insulin scale, and when he gets out, he will be back on his insulin pump. We'll going to add 15 units of Levemir after is in, for I's and O's, no urinary retention noted. Hemodialysis, as per nephrology, repeat PCR Covid, for [place] placement most likely the next 24 hours for subacute rehab, weightbearing status, to be recommended by orthopedic surgeon 03/29: Patient has wound VAC in place to the right hip region. He is currently on oral Lasix which will be continued at discharge and we have added in some potassium. Zambrano catheter should be removed this morning. Patient states he is utilizing incentive spirometry and reaching 1500 ML's. He is currently on aspi rin for DVT prophylaxis. Discharge plan is for. Patient is cleared for discharge from medicine. 03/30: Patient is seen in follow-up today. [facility], sitting up in recliner. tax audit manager has made arrangements for dialysis chair time on Monday, and Monday and discharge plan is for [place] tomorrow. Medication reconciliation has been reviewed. Patient is scheduled for hemodialysis today. Computed tomography scan of the right hip done yesterday revealed prosthesis in good position. Soft tissue air and postsurgical changes. Mild subcutaneous edema over the lateral right hip. Subcutaneous edema around the proximal thigh. No drainable fluid collection. REVIEW OF SYSTEMS Constitutional: No fever, no chills, no night sweats. No weight change. No weakness, fatigue or lethargy. No daytime sleepiness. EENT: No headache. No blurred vision or double vision, no loss of vision. No loss of Hearing, no ringing in the ears, no dizziness. No nasal drainage or congestion. No epistaxis. No sore throat. Lungs: No shortness of breath, cough, no sputum production. No wheezing. Cardiovascular: No chest pain, no lower extremity edema. No palpitations. No paroxysmal nocturnal dyspnea. No orthopnea. No lightheadedness or dizziness. No syncopal episodes. Abdominal: No abdominal pain. No nausea, vomiting. Chronic diarrhea. No constipation. No bloody or tarry stools. No loss of appetite. Genitourinary: No dysuria, increased frequency, urgency. No urinary retention. Musculoskeletal: No myalgias. No muscle weakness, no gait dysfunction, no frequent falls. No back pain. No neck pain. Reports right hip pain. Integumentary: No wounds, no lesions. No rash or pruritus. No unusual bruising. No change in hair or nails.Right hip, VISHNU drain, with edema, +1, and a wound VAC in place to go dressing, Aquacel silver Neurologic: No aphasia. No facial droop. No change in mentation. No head injury. No headache. No paralysis. No paresthesia. Psychiatric: No depression. No anxiety. No mood swings. Endocrine: Noted abnormal blood sugars. No weight change. No excessive sweating or thirst. No cold intolerance. PHYSICAL EXAMINATION Gen: This is a 71-year-old male, resting in bed. No acute distress noted. HEENT: Head is atraumatic, normocephalic. Pupils equal, round. Sclerae is anicteric. NECK: Supple. No JVD. No lymphadenopathy. No thyromegaly. LUNGS: Clear to auscultation. No wheezes or rhonchi. No intercostal retractions. HEART: Regular rate and rhythm. No murmur. ABDOMEN: Soft. Bowel sounds are present. No masses. No tenderness. EXTREMITIES: 1+ pedal edema. No calf tenderness. IV Fistula in the left arm. Wound VAC in place to the right hip. NEUROLOGICAL: Patient is awake, alert and oriented x3. Cranial nerves 2 through 12 are grossly intact. ASSESSMENT AND PLAN 1. Right subcapital femoral fracture secondary to a slip and fall. Patient is scheduled for right hip hemiarthroplasty 03/27/21. Patient is medically cleared for discharge to rehab. He is currently nonweightbearing on the right lower extremity and bedrest. Continue [place] as needed for pain, Zofran added for nausea, incentive spirometry to reduce incidence of atelectasis and hospital-acquired pneumonia, DVT prophylaxis per orthopedics is aspirin. 2. Diabetes mellitus type I on insulin pump. Continue Levemir 12 units at bedtime and NovoLog scale. 3. End-stage renal disease secondary to diabetes. Consult with nephrology. Patient has not yet started hemodialysis, has fistula to the left arm. Zambrano for I's and O's, no episode of urinary retention, nephrology following vascular has okayed the use of the AV fistula for dialysis, continue HD per nephrology 4. Hypertension. Continue Lasix 40 mg daily, Coreg 6.25 mg twice daily. 5. Hyperlipidemia. 6. 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 Continue PhosLo 667 mg 3 times daily. 7. Anemia of chronic kidney disease. Continue ferrous sulfate 325 mg daily. 8. GI prophylaxis. Pepcid 20 mg daily. 9. DVT prophylaxis. Per orthopedics. 10. COVID-19 testing negative. Patient has been hospitalized during a pandemic. DISCHARGE PLAN on Monday. Impression and plan of care have been directed as dictated by the signing physician. Marlena Santa nurse practitioner acting as scribe for signing physician. Objective - Vital Signs Vital signs: Vital Signs Temp 98.3 F 03/30/21 08:00 Pulse 79 03/30/21 08:00 Resp 16 03/30/21 08:00 BP 174/66 03/30/21 08:00 Pulse Ox 91 L 03/30/21 08:00 Intake & Output 03/29/21 03/30/21 03/30/21 18:59 06:59 18:59 Intake Total 300 Output Total 1700 Balance -1400 Intake: Hemodialysis 300 Output: Urine 500 Hemodialysis 1200 Other: Voiding Method Indwelling Catheter - Labs CBC & Chem 7: 03/30/21 06:19 03/30/21 06:19 Labs: Abnormal Lab Results - Last 24 Hours (Table) 03/29/21 03/29/21 03/29/21 Range/Units 06:35 11:49 16:53 RBC (4.30-5.90) m/uL Hgb (13.0-17.5) gm/dL Hct (39.0-53.0) % Lymphocytes # (1.0-4.8) k/uL Carbon Dioxide 19.8 L (20.0-27.5) mmol/L BUN 77.4 H (9.0-27.0) mg/dL Creatinine 7.0 H (0.6-1.5) mg/dL Est GFR (CKD-EPI)AfAm 8.3 L (60.0-200.0) Est GFR (CKD-EPI)NonAf 7.1 L (60.0-200.0) BUN/Creatinine Ratio 11.12 L (12.00-20.00) Ratio Glucose 132 H (70-110) mg/dL POC Glucose (mg/dL) 157 H 177 H (75-99) mg/dL Calcium 7.6 L (8.7-10.3) mg/dL Magnesium 2.7 H (1.5-2.4) mg/dL 03/29/21 03/30/21 03/30/21 Range/Units 20:14 06:19 07:09 RBC 3.23 L (4.30-5.90) m/uL Hgb 10.2 L (13.0-17.5) gm/dL Hct 31.3 L (39.0-53.0) % Lymphocytes # 0.7 L (1.0-4.8) k/uL Carbon Dioxide (20.0-27.5) mmol/L BUN (9.0-27.0) mg/dL Creatinine (0.6-1.5) mg/dL Est GFR (CKD-EPI)AfAm (60.0-200.0) Est GFR (CKD-EPI)NonAf (60.0-200.0) BUN/Creatinine Ratio (12.00-20.00) Ratio Glucose (70-110) mg/dL POC Glucose (mg/dL) 221 H 102 H (75-99) mg/dL Calcium (8.7-10.3) mg/dL Magnesium (1.5-2.4) mg/dL
[2021-03-30 17:00] LABS: Glucose,Whole Blood 462 mg/dL (75-99)
[2021-03-30 20:54] LABS: Glucose,Whole Blood 442 mg/dL (75-99)
[2021-03-30] MEDS: INSULIN DETEMIR (LEVEMIR) 100 UNIT/ML SYR SQ SCH (21:54)
[2021-03-30] MEDS: SENNOSIDES-DOCUSATE SODIUM 1 EACH TAB PO SCH (21:55)
[2021-03-31 07:13] LABS: Glucose,Whole Blood 241 mg/dL (75-99)
[2021-03-31] MEDS: SODIUM BICARBONATE TAB 650 MG TAB PO SCH (07:45)
[2021-03-31] MEDS: CALCIUM ACETATE 667 MG TAB PO SCH ×2 (07:46→11:56)
[2021-03-31] MEDS: FUROSEMIDE 40 MG TAB PO SCH (07:46)
[2021-03-31] MEDS: carvediloL 6.25 MG TAB PO SCH (07:46)
[2021-03-31] MEDS: hydrALAZINE HCL 50 MG TAB PO SCH (07:46)
[2021-03-31] MEDS: ASPIRIN 81 MG PO SCH (07:46)
[2021-03-31] MEDS: FERROUS SULFATE 325 MG TAB PO SCH (07:46)
[2021-03-31] MEDS: FAMOTIDINE 20 MG TAB PO SCH (07:47)
[2021-03-31] MEDS: DOXYCYCLINE 100 MG CAP PO SCH (07:47)
[2021-03-31] MEDS: INSULIN ASPART (NovoLOG) 100 UNIT/ML VIAL SQ SCH ×2 (07:47→11:56)
--- NOTE | 2021-03-31 09:51 | P.PN ---
Subjective Patient is seen in follow-up for progressive kidney disease. Patient has chronic kidney disease stage V with creatinine of 4.6 from January 2021. Patient has a matured AV fistula and has been cleared for use by vascular surgery. Started on hemodialysis 03/29/2021. Zambrano catheter removed. Has been voiding. Oral intake is fair. Has been tolerating dialysis well this admission. Vital signs are stable. General: The patient appeared well nourished and normally developed. HEENT: Head exam is unremarkable. LUNGS: Breath sounds decreased. HEART: Rate and Rhythm are regular. ABDOMEN: Soft, no distention. EXTREMITITES: 1+ edema. Objective - Vital Signs Vital signs: Vital Signs Temp 98.1 F 03/31/21 02:02 Pulse 77 03/31/21 02:02 Resp 18 03/31/21 07:15 BP 165/66 03/31/21 02:02 Pulse Ox 92 L 03/31/21 02:02 Intake & Output 03/30/21 03/31/21 03/31/21 18:59 06:59 18:59 Intake Total 300 Output Total 2200 Balance -1900 Intake: Hemodialysis 300 Output: Hemodialysis 2200 Other: # Voids 2 3 - Labs CBC & Chem 7: 03/30/21 06:19 03/30/21 06:19 Labs: Abnormal Lab Results - Last 24 Hours (Table) 03/30/21 03/30/21 03/30/21 Range/Units 06:19 11:45 16:58 Sodium 134 L (135-145) mmol/L BUN 72.1 H (9.0-27.0) mg/dL Creatinine 6.2 H (0.6-1.5) mg/dL Est GFR (CKD-EPI)AfAm 9.5 L (60.0-200.0) Est GFR (CKD-EPI)NonAf 8.2 L (60.0-200.0) BUN/Creatinine Ratio 11.63 L (12.00-20.00) Ratio POC Glucose (mg/dL) 131 H 462 H (75-99) mg/dL Calcium 7.5 L (8.7-10.3) mg/dL Magnesium 2.6 H (1.5-2.4) mg/dL 03/30/21 03/31/21 Range/Units 20:52 07:12 Sodium (135-145) mmol/L BUN (9.0-27.0) mg/dL Creatinine (0.6-1.5) mg/dL Est GFR (CKD-EPI)AfAm (60.0-200.0) Est GFR (CKD-EPI)NonAf (60.0-200.0) BUN/Creatinine Ratio (12.00-20.00) Ratio POC Glucose (mg/dL) 442 H 241 H (75-99) mg/dL Calcium (8.7-10.3) mg/dL Magnesium (1.5-2.4) mg/dL Assessment and Plan Plan: Assessment: 1. Chronic kidney disease stage V. Creatinine was 4.6 in January 2021. Creatinine 7.0 on 03/29/2021. Nonoliguric. Etiology is diabetic kidney disease. He has a matured AV fistula - vascular surgeon is Dr. Brenner - cleared for use. Started on hemodialysis 03/29/2021. 2. Hyperkalemia secondary to chronic kidney disease. Improved. 3. Diabetes mellitus. 4. Fall with right hip fracture. Status post right hip hemiarthroplasty 03/27/2021. 5. Chronic kidney disease mineral bone disease maintained on PhosLo. 6. Hypertension with chronic disease. Blood pressure on higher side. 7. Metabolic acidosis secondary to chronic kidney disease. On oral bicarb. Expect further improvement with dialysis. Plan: Hemodialysis tomorrow. He will be maintained on Monday schedule outpatient. Maintain Lasix. Outpatient dialysis has been set up by [facility]. Add amlodipine 5 mg once daily.
[2021-03-31] MEDS ORDERED: amLODIPine 5 MG TAB PO SCH (10:00)
[2021-03-31] MEDS ORDERED: ACETAMINOPHEN TAB 325 MG TAB PO PRN (10:17)
[2021-03-31 11:45] LABS: Glucose,Whole Blood 202 mg/dL (75-99)
[2021-03-31 12:17] VITALS: BMI 21.4
--- NOTE | 2021-03-31 13:17 | P.DS ---
Providers Date of admission: 03/25/21 20:01 Expected date of discharge: 03/31/21 Attending physician: Licha Salvador DO Consults: 03/25/21 20:01 Consult Physician Urgent Consulting Provider: Misty Reese Consult Reason/Comments: Renal failure, hyperkalemia Do you want consulting provider notified?: Yes 03/25/21 20:03 Consult Physician Urgent Consulting Provider: Josr Griffiths Consult Reason/Comments: Medical clearance Do you want consulting provider notified?: Yes Primary care physician: Emerson Bright MD Hospital Course: This is a 71-year-old male who is admitted to [facility] on 03/25/21 after a ground-level fall and sustaining injury to the right hip. X- rays in the emergency department revealed a right femoral neck fracture. He is admitted to our service for surgical intervention and care. Patient was taken to surgery for direct anterior right hip hemiarthroplasty on 03/27/21. The procedure was performed without complication or sequelae. The patient is doing fairly well postoperatively. Vital signs and labs are stable on postoperative day #4. Patient has history of end-stage renal disease and creatinine was 5.5 on admission. Per nephrology, hemodialysis was initiated on 03/29/21. Patient was examined bedside today. Patient states he is doing well and has no specific complaints. Per nursing, he is refusing his pain medication. Patient states his pain is well-controlled. He states he is up to the bedside chair yesterday. Patient is tolerating his diet well. His Zambrano catheter was removed yesterday. He denies chest pain, shortness of breath, nausea, vomiting, fevers, chills. No new complaints or concerns on the day of discharge. On examination, the patient is sitting up in bed eating breakfast. He is alert and oriented 3. On inspection of the right hip, there is a Prevena wound VAC in place. There is mild swelling of the thigh, thigh is soft and compressible. Patient has good strength and ROM of the right ankle and toes. Motor and sensory function is intact of the right lower extremity. Dorsalis pedis pulse +2, right lower extremity is warm and well perfused. Calf is soft and non-tender. Patient is discharged to rehab today in good condition, pending medical clearance. Patient will follow-up with Dr. Ken in the office in on Monday04/06/21 for wound vac removal. Please see med rec for accurate list of discharge medication. Plan - Discharge Summary New Discharge Prescriptions: New Potassium Chloride ER [K-Dur 10] 10 meq PO BID #60 tab hydrALAZINE HCL [Apresoline] 100 mg PO TID #90 tab Famotidine [Pepcid] 20 mg PO DAILY tab Sennosides-Docusate Sodium [Senokot-S] 2 each PO HS tab Sodium Bicarbonate Tab 650 mg PO BID tab Doxycycline Monohydrate 100 mg PO BID 14 Days #28 cap Continue Insulin Aspart (For Pump) [NovoLOG (For Pump)] 0.01 unit SQ-PUMP CONTINUOUS Carvedilol [Coreg] 6.25 mg PO BID Ergocalciferol [Vitamin D2 (1250 Mcg = 23190 Iu)] 1,250 mcg PO [place] Calcium Acetate [PhosLo] 667 mg PO TID-W/MEALS Ferrous Sulfate [Iron] 325 mg PO DAILY Changed Furosemide [Lasix] 40 mg PO BID #0 Discharge Medication List Calcium Acetate [PhosLo] 667 mg PO TID-W/MEALS 12/01/20 [History] Carvedilol [Coreg] 6.25 mg PO BID 12/01/20 [History] Ergocalciferol [Vitamin D2 (1250 Mcg = 12829 Iu)] 1,250 mcg PO [place] 12/01/20 [History] Ferrous Sulfate [Iron] 325 mg PO DAILY 12/01/20 [History] Insulin Aspart (For Pump) [NovoLOG (For Pump)] 0.01 unit SQ-PUMP CONTINUOUS 12/01/20 [History] Famotidine [Pepcid] 20 mg PO DAILY tab 03/29/21 [Rx] Furosemide [Lasix] 40 mg PO BID #0 03/29/21 [Rx] Potassium Chloride ER [K-Dur 10] 10 meq PO BID #60 tab 03/29/21 [Rx] Sennosides-Docusate Sodium [Senokot-S] 2 each PO HS tab 03/29/21 [Rx] Sodium Bicarbonate Tab 650 mg PO BID tab 03/29/21 [Rx] hydrALAZINE HCL [Apresoline] 100 mg PO TID #90 tab 03/29/21 [Rx] Doxycycline Monohydrate 100 mg PO BID 14 Days #28 cap 03/30/21 [Rx] Follow up Appointment(s)/Referral(s): Emerson Bright MD [Primary Care Provider] - 1 Week (AFTER DISCHARGE FROM [facility]) Helder Ken MD [Medical Doctor] - 04/06/21 Activity/Diet/Wound Care/Special Instructions: Scheduled for hemodialysis at [facility] on /Sat at 11:30am-please arrive to first treatment 30 minutes early. Weight bear as tolerated operative leg with a walker. Aspirin 81 BID for DVT prophylaxis. Doxycycline 100mg BID x 2 weeks for wound healing prophylaxis. Keep Prevena wound vac in place. Follow-up appointment at [facility] on 04/06/21 for wound check. Call the office with any questions or concerns, Discharge Disposition: TRANSFER TO SNF/ECF
--- NOTE | 2021-03-31 13:29 | P.PN ---
Subjective Progress Note Date: 03/31/21 HISTORY OF PRESENT ILLNESS Is a 71-year-old male patient of Dr. Bright past medical history of diabetes mellitus type 1 on insulin pump, end-stage renal disease with fistula in the left arm not accessed as of yet, hypertension, hyperlipidemia, generalized osteoarthritis, skin cancer. Patient states that he had a slip and fall yesterday. There was a newspaper on the kitchen floor and he landed on his right hip, unable to get up. He called a friend who assisted him into the car and brought him in the hospital for further evaluation. X-ray found a right subcapital hip fracture. Chest x-ray reveals prominent bibasilar findings greater on the right. Evidence of mild cardiac silhouette enlargement. WBC 11.3, hemoglobin 11.9 and platelet count 412. Repeat chemistry today reveals sodium 141, potassium 5.2, chloride 112, CO2 21, BUN 69 creatinine 5.72. Blood sugars running between 194 and 285. Coronavirus PCR not detected. Patient is seen today on the [facility] floor, consult also placed with Dr. Reese. pATIENTunderwent the following procedures Right direct anterior hip hemiarthroplasty ON 03/27/21 with Application of negative pressure incisional wound VAC, right hip, Implants: Esme accolade C size #5 high offset cemented stem with 51 +0 bipolar femoral head FOR Displaced right subcapital femoral neck fracture . Postop pain is under control, no nausea vomiting, no bowel movement yet, O2 on room air, has Zambrano catheter draining clear urine. Weightbearing status is c urrently pending 03/28: Patient's diet is not controlled while in the hospital, the nurse doesn't feel that she he is controlling his blood sugars adequately secondary to increased amount of His, did switch it to a NovoLog insulin scale, and when he gets out, he will be back on his insulin pump. We'll going to add 15 units of Levemir after is in, for I's and O's, no urinary retention noted. Hemodialysis, as per nephrology, repeat PCR Covid, for [place] placement most likely the next 24 hours for subacute rehab, weightbearing status, to be recommended by orthopedic surgeon 03/29: Patient has wound VAC in place to the right hip region. He is currently on oral Lasix which will be continued at discharge and we have added in some potassium. Zambrano catheter should be removed this morning. Patient states he is utilizing incentive spirometry and reaching 1500 ML's. He is currently on asp irin for DVT prophylaxis. Discharge plan is for. Patient is cleared for discharge from medicine. 03/30: Patient is seen in follow-up today. He is on the [facility] floor, sitting up in recliner. partner marketing manager has made arrangements for dialysis chair time on Monday, and Monday and discharge plan is for [facility] tomorrow. Medication reconciliation has been reviewed. Patient is scheduled for hemodialysis today. Computed tomography scan of the right hip done yesterday revealed prosthesis in good position. Soft tissue air and postsurgical changes. Mild subcutaneous edema over the lateral right hip. Subcutaneous edema around the proximal thigh. No drainable fluid collection. 03/31 . patient getting ready discharge today cleared from other subspecialties is doing well, no issues regarding aspiration lightheadedness dizziness, does have a wound VAC on the lateral hip, and 2+ edema in the legs. Patient will be transferred to [facility] today, I asked she does have a chair time Monday, patient is on doxycycline, possibly for prophylactic regimen, as provided by general surgery, to complete 14 day regimen. Wouldn't treatments, [facility], along with compression sleeve, in both lower extremities REVIEW OF SYSTEMS Constitutional: No fever, no chills, no night sweats. No weight change. No weakness, fatigue or lethargy. No daytime sleepiness. EENT: No headache. No blurred vision or double vision, no loss of vision. No loss of Hearing, no ringing in the ears, no dizziness. No nasal drainage or congestion. No epistaxis. No sore throat. Lungs: No shortness of breath, cough, no sputum production. No wheezing. Cardiovascular: No chest pain, no lower extremity edema. No palpitations. No paroxysmal nocturnal dyspnea. No orthopnea. No lightheadedness or dizziness. No syncopal episodes. Abdominal: No abdominal pain. No nausea, vomiting. Chronic diarrhea. No constipation. No bloody or tarry stools. No loss of appetite. Genitourinary: No dysuria, increased frequency, urgency. No urinary retention. Musculoskeletal: No myalgias. No muscle weakness, no gait dysfunction, no frequent falls. No back pain. No neck pain. Reports right hip pain. Integumentary: No wounds, no lesions. No rash or pruritus. No unusual bruising. No change in hair or nails.Right hip, VISHNU drain, with edema, +1, and a wound VAC in place to go dressing, Aquacel silver Neurologic: No aphasia. No facial droop. No change in mentation. No head injury. No headache. No paralysis. No paresthesia. Psychiatric: No depression. No anxiety. No mood swings. Endocrine: Noted abnormal blood sugars. No weight change. No excessive sweatin g or thirst. No cold intolerance. PHYSICAL EXAMINATION Gen: This is a 71-year-old male, resting in bed. No acute distress noted. HEENT: Head is atraumatic, normocephalic. Pupils equal, round. Sclerae is anicteric. NECK: Supple. No JVD. No lymphadenopathy. No thyromegaly. LUNGS: Clear to auscultation. No wheezes or rhonchi. No intercostal retractions. HEART: Regular rate and rhythm. No murmur. ABDOMEN: Soft. Bowel sounds are present. No masses. No tenderness. EXTREMITIES: 1+ pedal edema. No calf tenderness. IV Fistula in the left arm. Wound VAC in place to the right hip. NEUROLOGICAL: Patient is awake, alert and oriented x3. Cranial nerves 2 through 12 are grossly intact. ASSESSMENT AND PLAN 1. Right subcapital femoral fracture secondary to a slip and fall. Patient is scheduled for right hip hemiarthroplasty 03/27/21. Patient is medically cleared for discharge to rehab. He is currently nonweightbearing on the right lower extremity and bedrest. Continue Cr[place]tree as needed for pain, Zofran added for nausea, incentive spirometry to reduce incidence of atelectasis and hospital-acquired pneumonia, DVT prophylaxis per orthopedics is aspirin. 2. Diabetes mellitus type I on insulin pump. Continue Levemir 12 units at bedtime and NovoLog scale. 3. End-stage renal disease secondary to diabetes. Consult with nephrology. Patient has not yet started hemodialysis, has fistula to the left arm. Zambrano for I's and O's, no episode of urinary retention, nephrology following vascular has okayed the use of the AV fistula for dialysis, continue HD per nephrology 4. Hypertension. Continue Lasix 40 mg daily, Coreg 6.25 mg twice daily. 5. Hyperlipidemia. 6. 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 Continue PhosLo 667 mg 3 times daily. 7. Anemia of chronic kidney disease. Continue ferrous sulfate 325 mg daily. 8. GI prophylaxis. Pepcid 20 mg daily. 9. DVT prophylaxis. Per orthopedics. 10. COVID-19 testing negative. Patient has been hospitalized during a pandemic. DISCHARGE PLAN on Monday. stable Laboratory Results - Last 24 Hours 03/30/21 03/30/21 03/31/21 16:58 20:52 07:12 POC Glucose (mg/dL) 462 H 442 H 241 H POC Glu Recreation Coordinator ID Destinee Alexandre, Aishwarya Pizarro 03/31/21 11:43 POC Glucose (mg/dL) 202 H POC Glu Recreation Coordinator ID Aishwarya Corona Current Medications Acetaminophen (Acetaminophen Tab 325 Mg Tab) 650 mg PO Q6HR PRN PRN Reason: Fever and/ or Pain Last Admin: 03/31/21 10:25 Dose: 650 mg Documented by: Hydrocodone Bitart/Acetaminophen (Hydrocodone/Apap 5-325mg 1 Each Tab) 1 each PO Q6HR PRN PRN Reason: Pain Scale 1 to 5 Last Admin: 03/28/21 21:02 Dose: 1 each Documented by: Hydrocodone Bitart/Acetaminophen (Hydrocodone/Apap 5-325mg 1 Each Tab) 2 each PO Q6HR PRN PRN Reason: Pain Scale 6 to 10 Amlodipine Besylate (Amlodipine 5 Mg Tab) 5 mg PO DAILY [facility] Last Admin: 03/31/21 10:25 Dose: 5 mg Documented by: Aspirin (Aspirin 81 Mg) 81 mg PO BID [facility] Last Admin: 03/31/21 07:46 Dose: 81 mg Documented by: Calcium Acetate (Calcium Acetate 667 Mg Tab) 667 mg PO TID-W/MEALS [facility] Last Admin: 03/31/21 11:56 Dose: 667 mg Documented by: Carvedilol (Carvedilol 6.25 Mg Tab) 6.25 mg PO BID [facility] Last Admin: 03/31/21 07:46 Dose: 6.25 mg Documented by: Doxycycline Monohydrate (Doxycycline 100 Mg Cap) 100 mg PO BID [facility] Last Admin: 03/31/21 07:47 Dose: 100 mg Documented by: Ergocalciferol (Ergocalciferol 1,250 Mcg (50,000 Iu) Capsule) 1,250 mcg PO SALMERON [facility] Last Admin: 03/28/21 07:16 Dose: 1,250 mcg Documented by: Famotidine (Famotidine 20 Mg Tab) 20 mg PO DAILY [facility] Last Admin: 03/31/21 07:47 Dose: 20 mg Documented by: Ferrous Sulfate (Ferrous Sulfate 325 Mg Tab) 325 mg PO DAILY [facility] Last Admin: 03/31/21 07:46 Dose: 325 mg Documented by: Furosemide (Furosemide 40 Mg Tab) 40 mg PO DAILY [facility] Last Admin: 03/31/21 07:46 Dose: 40 mg Documented by: Hydralazine HCl (Hydralazine Hcl 20 Mg/Ml 1 Ml Vial) 10 mg IVP Q4HR PRN PRN Reason: Blood Pressure - High Last Admin: 03/27/21 06:06 Dose: 10 mg Documented by: Hydralazine HCl (Hydralazine Hcl 50 Mg Tab) 100 mg PO TID [facility] Last Admin: 03/31/21 07:46 Dose: 100 mg Documented by: Hydromorphone HCl (Hydromorphone 0.5 Mg/0.5 Ml Syringe) 0.5 mg IVP Q6HR PRN PRN Reason: Pain Last Admin: 03/27/21 07:34 Dose: 0.5 mg Documented by: Hydroxyzine Pamoate (Hydroxyzine Pamoate 25 Mg Cap) 25 mg PO Q4HR PRN PRN Reason: Mild Nausea and/or Anxiety Insulin Aspart (Insulin Aspart (Novolog) 100 Unit/Ml Vial) 0 unit SQ [facility]; Protocol Last Admin: 03/31/21 11:56 Dose: 2 unit Documented by: Insulin Detemir (Insulin Detemir (Levemir) 100 Unit/Ml Syr) 12 unit SQ [facility] Last Admin: 03/30/21 21:54 Dose: 12 unit Documented by: Naloxone HCl (Naloxone 0.4 Mg/Ml 1 Ml Vial) 0.2 mg IV Q2M PRN PRN Reason: Opioid Reversal Ondansetron HCl (Ondansetron 4 Mg/2 Ml Vial) 4 mg IVP Q6HR PRN PRN Reason: Nausea And Vomiting Senna/Docusate Sodium (Sennosides-Docusate Sodium 1 Each Tab) 2 each PO HS [facility] Last Admin: 03/30/21 21:55 Dose: 2 each Documented by: Sodium Bicarbonate (Sodium Bicarbonate Tab 650 Mg Tab) 650 mg PO BID [facility] Last Admin: 03/31/21 07:45 Dose: 650 mg Documented by: Vital Signs Temp 98.7 F 03/31/21 08:00 Pulse 84 03/31/21 08:00 Resp 17 03/31/21 08:00 BP 156/56 03/31/21 08:00 Pulse Ox 92 L 03/31/21 08:00 Intake & Output 03/30/21 03/31/21 03/31/21 18:59 06:59 18:59 Intake Total 300 Output Total 2200 Balance -1900 Weight 65.771 kg Intake: Hemodialysis 300 Output: Hemodialysis 2200 Other: # Voids 2 3 Objective - Vital Signs Vital signs: Vital Signs Temp 98.7 F 03/31/21 08:00 Pulse 84 03/31/21 08:00 Resp 17 03/31/21 08:00 BP 156/56 03/31/21 08:00 Pulse Ox 92 L 03/31/21 08:00 Intake & Output 03/30/21 03/31/21 03/31/21 18:59 06:59 18:59 Intake Total 300 Output Total 2200 Balance -1900 Weight 65.771 kg Intake: Hemodialysis 300 Output: Hemodialysis 2200 Other: # Voids 2 3 - Labs CBC & Chem 7: 03/30/21 06:19 03/30/21 06:19 Labs: Abnormal Lab Results - Last 24 Hours (Table) 03/30/21 03/30/21 03/31/21 Range/Units 16:58 20:52 07:12 POC Glucose (mg/dL) 462 H 442 H 241 H (75-99) mg/dL 03/31/21 Range/Units 11:43 POC Glucose (mg/dL) 202 H (75-99) mg/dL
[2021-03-31] MEDS: hydrALAZINE HCL 20 MG/ML 1 ML VIAL IVP PRN (14:15)
[2021-03-31 14:18] VITALS: PULSE 80; RESP 18; TEMP 97.6
[2021-03-31 14:57] VITALS: BP 151/64
== END 2021-03-31 15:15 | DRG 521 ==
LOC: EC 15:57 → 4SSUR 20:01
PROVIDERS: ADMIT Orthopaedic Surgery Hand Surgery; ATTEND Orthopaedic Surgery Hand Surgery
PROC: 0SRR019 Replacement of Right Hip Joint, Femoral Surface with Metal Synthetic Substitute, Cemented, Open Approach (ICD-10-PCS; principal; 2021-03-27 10:00)
PROC: 5A1D70Z Performance of Urinary Filtration, Intermittent, Less than 6 Hours Per Day (ICD-10-PCS; 2021-03-29)
DX: S72.011A Unspecified intracapsular fracture of right femur, initial encounter for closed fracture (principal); N18.6 End stage renal disease; N17.9 Acute kidney failure, unspecified; I12.0 Hypertensive chronic kidney disease with stage 5 chronic kidney disease or end stage renal disease; E83.9 Disorder of mineral metabolism, unspecified; E83.39 Other disorders of phosphorus metabolism; D63.1 Anemia in chronic kidney disease; E10.22 Type 1 diabetes mellitus with diabetic chronic kidney disease; Z99.2 Dependence on renal dialysis; Z79.4 Long term (current) use of insulin; Z20.822 Contact with and (suspected) exposure to COVID-19; E87.5 Hyperkalemia; I25.10 Atherosclerotic heart disease of native coronary artery without angina pectoris; I49.3 Ventricular premature depolarization; E78.5 Hyperlipidemia, unspecified; M15.9 Polyosteoarthritis, unspecified; Z79.899 Other long term (current) drug therapy; Z96.41 Presence of insulin pump (external) (internal); Z85.828 Personal history of other malignant neoplasm of skin; Z90.89 Acquired absence of other organs; Z90.49 Acquired absence of other specified parts of digestive tract; Z87.19 Personal history of other diseases of the digestive system; Z87.891 Personal history of nicotine dependence; Z98.42 Cataract extraction status, left eye; Z98.41 Cataract extraction status, right eye; Z60.2 Problems related to living alone; Z98.890 Other specified postprocedural states; Z71.6 Tobacco abuse counseling; W01.0XXA Fall on same level from slipping, tripping and stumbling without subsequent striking against object, initial encounter; Z82.3 Family history of stroke; Z82.49 Family history of ischemic heart disease and other diseases of the circulatory system; Z80.3 Family history of malignant neoplasm of breast; Z80.8 Family history of malignant neoplasm of other organs or systems
CPT/HCPCS: 36415; 71046; 73501; 73502; 80048; 80053; 83735; 84100; 85025; 85027; 85610; 85730; 86704; 86706; 86850; 86900; 86901; 87340; 87635; 88305; 88311; 90935; 93005; 96374; 96375; 96376; 99285

== ENCOUNTER → 2022-04-13 | Day surgery (SDC) | payer MEDICARE ==
[2022-04-12 08:39] VITALS: BMI 19.6
[~2022-04-13] MED LIST changes: +IOPAMIDOL-370 100ML BTL INJ ONE; -LACTATED RINGERS 1,000 ML IV SCH; -LIDOCAINE 1% (10MG/ML) FOR IV START INTRADERMA PRN; +LIDOCAINE 1% INJ 10MG/ML (5 ML VIAL-PF) SQ ONE; +SODIUM CHLORIDE 0.9% 1,000 ML in EMPTY BAG 1 BAG IV ONE; +SODIUM CHLORIDE 0.9% 500 ML 500 ML IV ONE; -fentaNYL (PF) 50 MCG/ML 2 ML AMP IV PRN
[2022-04-13 12:06] VITALS: TEMP 98.2
[2022-04-13 12:08] LABS: Glucose,Whole Blood 113 mg/dL (70-110)
[2022-04-13 12:23] LABS: Basophils # (A) 0.1 k/uL (0-0.2); Basophils % (A) 1 %; Eosinophils # (A) 0.7 k/uL (0-0.7); Eosinophils % (A) 9 %; HCT 37.4 % (39.0-53.0); HGB 12.3 gm/dL (13.0-17.5); Lymphocytes # (A) 1.4 k/uL (1.0-4.8); Lymphocytes % (A) 18 %; MCH 33.1 pg (25.0-35.0); MCV 100.3 fL (80.0-100.0); Mean Platelet Volume 7.8; Monocytes # (A) 0.6 k/uL (0-1.0); Monocytes % (A) 9 %; Neutrophils # (A) 4.5 k/uL (1.3-7.7); Neutrophils % (A) 61 %; Platelet Count 301 k/uL (150-450); RBC 3.73 m/uL (4.30-5.90); RDW 12.6 % (11.5-15.5); WBC 7.4 k/uL (3.8-10.6)
[2022-04-13 12:33] LABS: Calcium 8.2 mg/dL (8.4-10.2); Potassium 5.1 mmol/L (3.5-5.1)
--- NOTE | 2022-04-13 13:10 | P.OP ---
Date of Procedure: 04/13/22 Description of Procedure: Preoperative diagnosis: End-stage renal disease, prolonged bleeding after dialysis Postoperative diagnosis: Same, focal outflow stenosis Procedure: Fistulogram Percutaneous transluminal balloon venoplasty of the cephalic vein 9 x 40 balloon Surgeon: Ashley Zambrano D.O. EBL: [Less than 10 mL IV fluids: See records Urine output: Not measured Drains: None Complications: None immediately apparent Condition: Stable Operative indication and findings: The patient is a 72-year-old male who gets dialysis via a left upper extremity brachiocephalic fistula. He has been having increasing time of bleeding after decannulation at dialysis. There was an ultrasound performed showing some degree of stenosis therefore he was operative fistulogram. Risks and benefits were discussed. He seemingly understood and wished to proceed Procedure in detail: Patient was taken to the special suite and placed in supine position. Left upper extremity was prepped and draped in usual sterile fashion. A preprocedure timeout was performed, all parties were in agreement. Proximal portion portion of the fistula was cannulated in the outflow direction and Seldinger technique was used to place a 6-Sammarinese sheath. A fistulogram was performed showing an area of stenosis with a cephalic vein courses over the humerus. The fistula itself appeared large otherwise. Further more central venogram was performed showing no evidence of obvious stenosis through the cephalic, axillary or subclavian veins. Catheters and wires were used and subsequently a 9 x 40 balloon venoplasty was performed of the cephalic vein stenosis with improvement of the visualization after the waist as well as improvement of the thrill through the fistula itself. An inflow venogram was performed without evidence of significant stenosis although the anastomosis was not fully well visualized at that point catheters and wires were removed. The sheath was removed and a [id number] suture was placed. Manual pressure was held until hemostasis was adequate. A dressing was placed. The patient was transferred to recovery in stable condition. Plan - Discharge Summary Discharge Rx Participant: No New Discharge Prescriptions: No Action Insulin Aspart (For Pump) [NovoLOG (For Pump)] 0.01 unit SQ-PUMP CONTINUOUS carvediloL [Coreg] 6.25 mg PO BID Renavite 1 tab PO DAILY Furosemide [Lasix] 40 mg PO BID #0 Discharge Medication List Insulin Aspart (For Pump) [NovoLOG (For Pump)] 0.01 unit SQ-PUMP CONTINUOUS 12/01/20 [History] carvediloL [Coreg] 6.25 mg PO BID 12/01/20 [History] Furosemide [Lasix] 40 mg PO BID #0 03/29/21 [Rx] Renavite 1 tab PO DAILY 04/12/22 [History] Follow up Appointment(s)/Referral(s): Ashley Zambrano DO [STAFF PHYSICIAN] - 1 Week (APPOINTMENT MADE ON April @ 11:15AM ) Activity/Diet/Wound Care/Special Instructions: Resume regular diet. Resume home activity. Resume home medications. May remove suture at dialysis tomorrow. Discharge Disposition: HOME SELF-CARE
[2022-04-13 13:15] VITALS: BP 166/83; PULSE 71; RESP 13
--- NOTE | 2022-04-13 13:17 | IR ---
EXAMINATION TYPE: IR homicide squad captain venous DATE OF EXAM: 04/13/2022 COMPARISON: NONE HISTORY: Fluoroscopy time. Fluoroscopy was provided to the referring clinician.
== END | disposition home or self-care (01) ==
LOC: CATHCVL 11:25
PROVIDERS: ATTEND Surgery
DX: T82.858A Stenosis of other vascular prosthetic devices, implants and grafts, initial encounter (principal); E11.22 Type 2 diabetes mellitus with diabetic chronic kidney disease; N18.6 End stage renal disease; Z99.2 Dependence on renal dialysis; Z79.4 Long term (current) use of insulin; Z79.01 Long term (current) use of anticoagulants; Z79.52 Long term (current) use of systemic steroids; Z79.02 Long term (current) use of antithrombotics/antiplatelets; Z85.828 Personal history of other malignant neoplasm of skin; Z98.890 Other specified postprocedural states; Z87.19 Personal history of other diseases of the digestive system; Z90.49 Acquired absence of other specified parts of digestive tract; Z87.891 Personal history of nicotine dependence; Z82.49 Family history of ischemic heart disease and other diseases of the circulatory system
CPT/HCPCS: 36902; 80048; 85025; C1894; C1769 ×4; C1725; J2001; Q9967

== ENCOUNTER 2022-09-07 16:32 | Inpatient (IN) | payer MEDICARE, OTHER ==
--- NOTE | 2022-09-07 17:38 | ED ---
Extremity Problem HPI - General Chief complaint: Extremity Injury, Lower Stated complaint: left hip pain Time Seen by Provider: 09/07/22 17:25 Source: patient, family, RN notes reviewed Mode of arrival: wheelchair Limitations: no limitations - History of Present Illness Initial comments: This is a 72-year-old male who presents to the emergency department for left hip pain. States that it started about one week ago. Denies any known injuries. States that it has been getting progressively worse and at this point he is unable to bear weight. He is not taking anything to treat his pain. Additionally, states that he had a hip replacement here a few years ago and he can "feel" the replacement in the right hip, and requests imaging of that as well. Reports minor pain in the lower back. Denies any radiation of pain down the legs. He is not taking any blood thinners. Denies any fevers, chills, sore throat, cough, dyspnea, chest pain, palpitations, abdominal pain, nausea, vomiting, diarrhea, or headaches. MD Complaint: extremity pain Onset/Timin -: week(s) Location: left, lower extremity - Related Data Home Medications Medication Instructions Recorded Confirmed Insulin Aspart (For Pump) [NovoLOG 0.01 unit SQ-PUMP CONTINUOUS 12/01/20 09/07/22 (For Pump)] carvediloL [Coreg] 6.25 mg PO BID 12/01/20 09/07/22 Renavite 1 tab PO DAILY 04/12/22 09/07/22 Atorvastatin [Lipitor] 20 mg PO DAILY 09/07/22 09/07/22 Calcium Acetate [Phoslo] 667 mg PO TID-W/MEALS 09/07/22 09/07/22 Glucagon [Gvoke Pfs 1-Pack Syringe] 1 mg SQ DIRECTED PRN 09/07/22 09/07/22 sitaGLIPtin [Januvia] 50 mg PO DAILY 09/07/22 09/07/22 Allergies Allergy/AdvReac Type Severity Reaction Status Date / Time No Known Allergies Allergy Verified 09/07/22 19:34 Review of Systems ROS Statement: Those systems with pertinent positive or pertinent negative responses have been documented in the HPI. ROS Other: All systems not noted in ROS Statement are negative. Past Medical History Past Medical History: Cancer, Diabetes Mellitus, Hyperlipidemia, Hypertension, Osteoarthritis (OA), Renal Disease Additional Past Medical History / Comment(s): Hx skin cancer. Dialysis ,. "Fingers keep numbing up." History of Any Multi-Drug Resistant Organisms: None Reported Past Surgical History: Adenoidectomy, Cholecystectomy, Tonsillectomy Additional Past Surgical History / Comment(s): Skin cancer removed, bilateral cataracts removed, fistula on left arm. Past Anesthesia/Blood Transfusion Reactions: No Reported Reaction Additional Past Anesthesia/Blood Transfusion Reaction / Comment(s): No hx blood transfusion. Past Psychological History: No Psychological Hx Reported Smoking Status: Never smoker Past Alcohol Use History: Occasional Past Drug Use History: None Reported - Past Family History Father Family Medical History: CVA/TIA, Hypertension Mother Family Medical History: No Reported History Sister(s) Family Medical History: Cancer Additional Family Medical History / Comment(s): Breast cancer. General Exam Limitations: no limitations General appearance: alert, in no apparent distress Head exam: Present: atraumatic, normocephalic, normal inspection Respiratory exam: Present: normal lung sounds bilaterally. Absent: respiratory distress, wheezes, rales, rhonchi, stridor Cardiovascular Exam: Present: regular rate, normal rhythm, normal heart sounds. Absent: systolic murmur, diastolic murmur, rubs, gallop, clicks Extremities exam: Present: other (There is no tenderness to palpation over the left hip or swelling, erythema, or tenderness to the entirety of the left lower extremity. Pain is increased with range of motion of the left leg. 2+ DP and PT pulses.) Neurological exam: Present: alert, oriented X3, CN II-XII intact Psychiatric exam: Present: normal affect, normal mood Skin exam: Present: warm, dry, intact, normal color. Absent: rash Course Vital Signs 09/07/22 09/07/22 09/07/22 16:33 19:19 21:56 Temperature 98.5 F Pulse Rate 76 86 80 Respiratory 20 15 15 Rate Blood Pressure 146/60 165/77 138/63 O2 Sat by Pulse 98 99 96 Oximetry 09/08/22 09/08/22 09/08/22 01:45 03:15 05:24 Temperature Pulse Rate 65 68 63 Respiratory 15 16 16 Rate Blood Pressure 138/65 138/63 138/63 O2 Sat by Pulse 98 98 98 Oximetry 09/08/22 09/08/22 09:38 14:20 Temperature Pulse Rate 80 70 Respiratory 20 18 Rate Blood Pressure 149/73 140/65 O2 Sat by Pulse 97 96 Oximetry Medical Decision Making - Medical Decision Making This is a 72-year-old male who presents to the emergency department for left hip pain. Was pt. sent in by a medical professional or institution? @ -No Did you speak to anyone other than the patient for history? @ -His niece, who just elaborated on the fact that he did not sustain any injuries and is not one to typically complain of pain or take pain medication. Did you review nursing and triage notes? @ -Yes, and I agree, it is accurate with regards to the patient's symptoms. Were old charts reviewed? @ -No Differential Diagnosis? @ -Differential Hip Pain: Fracture, dislocation, contusion, DVT, OA, this is not meant to be an all- inclusive list. EKG interpreted by me (3pts min.)? @ -EKG interpreted by me demonstrating the following: Sinus rhythm. Ventricular rate 81 bpm, ND interval 173 ms, QRS duration 89 ms, QTC 398 ms. X-rays interpreted by me (1pt min.)? @ -XR of the bilateral hips and lumbar spine obtained. My interpretation identifies no acute fractures. CT interpreted by me (1pt min.)? @ -Computed tomography scan of the left hip obtained. My interpretation identifies a left femoral neck fracture. U/S interpreted by me (1pt. min.)? @ -Not obtained What testing was considered but not performed? (CT, X-rays, U/S, labs)? Why? @ -None What meds were considered but not given? Why? @ -None Did you discuss the management of the patient with other professionals? @ -Yes, Dr. Patel who accepts the patient for admission. Did you reconcile home meds? @ -Yes Was smoking cessation discussed for >3mins.? @ -No Was critical care preformed (if so, how long)? @ -No Were there social determinants of health that impacted care today? How? (Homelessness, low income, unemployed, alcoholism, drug addiction, transportation, low edu. Level, literacy, decrease access to med. care, skilled nursing, rehab)? @ -No Was there de-escalation of care discussed even if they declined? (Discuss DNR or withdrawal of care, Hospice)? @ -No What co-morbidities impacted this encounter? (DM, HTN, Smoking, COPD, CAD, Cancer, CVA, Hep., AIDS, mental health diagnosis, sleep apnea, morbid obesity)? @ -DM, HTN, HLD, renal failure, OA Was patient admitted / discharged? @ -Admitted. We initially obtained x-rays of the bilateral hips and lumbar spine. The right hip was x-rayed as well to the patient's concern that he could "feel" the prosthetic. X-rays revealed no acute findings. Given the severity of the patient's symptoms and because he was unable to bear weight, CT scan of the left hip was obtained. This revealed a subacute left nondisplaced proximal femoral neck fracture with sclerosis. Case discussed with Dr. Patel at [facility]. He will reach out to Dr. Ken, who did surgery on the patient in March 2021. Patient admitted to orthopedics for a left femoral neck fracture. Medicine and nephrology consulted for medical management and surgical clearance. Preoperative lab work, EKG, and chest x-ray ordered as well with results pending at the time of admission. Patient will be kept NPO after midnight. Undiagnosed new problem with uncertain prognosis? @ -None Drug Therapy requiring intensive monitoring for toxicity (Heparin, Nitro, Insulin, Cardizem)? @ -None Were any procedures done? @ -None Diagnosis/symptom? @ -Left femoral neck fracture Acute, or Chronic, or Acute on Chronic? @ -Acute Uncomplicated (without systemic symptoms) or Complicated (systemic symptoms)? @ -Complicated Side effects of treatment? @ -None Exacerbation, Progression, or Severe Exacerbation] @ -Not applicable Poses a threat to life or bodily function? @ -Yes This case was discussed in detail with the attending ED physician, Dr. Waterman. Presentation, findings, and treatment plan discussed in detail as well. - Lab Data Result diagrams: 09/07/22 19:30 09/07/22 19:30 - Radiology Data Radiology results: report reviewed, image reviewed Disposition Clinical Impression: Fracture of femoral neck, left, ESRD (end stage renal disease) on dialysis, Hyperkalemia Disposition: ADMITTED IP TO THIS HOSP
--- NOTE | 2022-09-07 18:06 | XR ---
EXAMINATION TYPE: XR lumbar spine 2 or 3V DATE OF EXAM: 09/07/2022 CLINICAL HISTORY: pain TECHNIQUE: Three views of the lumbar spine are submitted. COMPARISON: None. FINDINGS: There are 5 lumbar type vertebral bodies identified. The lumbar spine shows satisfactory alignment w ithout evidence of acute fracture or dislocation. Vertebral body heights are within normal limits. Multilevel disc space narrowing with endplate sclerosis and anterior ossified ptosis. The overlying soft tissue appears unremarkable. Cholecystectomy clips in the right upper quadrant. Atherosclerotic calcification of the aorta. IMPRESSION: 1. No acute fracture or dislocation is seen in the lumbar spine. 2. Mild degenerative disc disease of the lumbar spine.
--- NOTE | 2022-09-07 18:08 | XR ---
EXAMINATION TYPE: XR Hip Bilateral Complete DATE OF EXAM: 09/07/2022 5:58 PM INDICATION: Patient age:Male; 72 years old; Reason for study: Pain, no known injury; PHH. COMPARISON: CT right hip 03/29/2021, right hip radiograph 03/27/2021, right hip and pelvic radiograph 03/25/2021 TECHNIQUE: Both hips were examined in the frontal and lateral projections . FINDINGS: Postsurgical changes from right total hip arthroplasty. Hardware appears intact with approp riate alignment.No evidence of any acute osseous pathology, joint dislocation, or soft tissue swellin g. Mild osteoarthritic changes of the left hip with medial joint space narrowing, acetabular sclerosi s and marginal spurring. Few pelvic phlebolith. Vascular sclerosis. IMPRESSION: 1. No acute osseous pathology. 2. Postsurgical changes from right total hip arthroplasty. Hardware appears intact with appropriate alignment. 3. Mild left hip osteoarthritic changes.
[2022-09-07] MEDS ORDERED: HYDROcodone/APAP 5-325MG 1 EACH TAB PO STA (18:20)
--- NOTE | 2022-09-07 19:13 | CT ---
EXAMINATION TYPE: CT hip LT wo con CT DLP: 397.9 mGycm, Automated exposure control for dose reduction was used. DATE OF EXAM: 09/07/2022 6:49 PM COMPARISON: Hip radiograph the same date. CLINICAL INDICATION:Male, 72 years old with history of Left hip pain, cannot ambulate; PHH, Left hip pain, cannot ambulate TECHNIQUE: Axial images were obtained of the left hip without the use of IV contrast. Additional cor onal and sagittal reformatted images and soft tissue and bone window were obtained for review. 3-D re construction was created on a separate workstation. FINDINGS: Diffuse bone demineralization. No dislocation. Nondisplaced proximal femoral neck fracture with sclerosis. Mild osteoarthritic changes of the left hip. No significant soft tissue swelling or joint effusion is identified. No focal muscular atrophy or edema is identified. No radiopaque foreign body identified. Vascular sclerosis. IMPRESSION: Subacute appearing nondisplaced proximal femoral neck fracture with sclerosis.
[2022-09-07] MEDS ORDERED: ACETAMINOPHEN TAB 325 MG TAB PO PRN (19:28)
[2022-09-07] MEDS ORDERED: oxyCODONE-APAP 5-325MG 1 EACH TAB PO PRN (19:28)
[2022-09-07] MEDS ORDERED: NALOXONE 0.4 MG/ML 1 ML VIAL IV PRN (19:28)
[2022-09-07] MEDS ORDERED: ONDANSETRON 4 MG/2 ML VIAL IVP PRN (19:28)
[2022-09-07] MEDS ORDERED: GLUCAGON 1 MG/ML VIAL SQ PRN (19:42)
[2022-09-07 19:55] LABS: Albumin 3.9 g/dL (3.5-5.0); Calcium 8.8 mg/dL (8.4-10.2); Potassium 5.2 mmol/L (3.5-5.1); Total Bilirubin 0.5 mg/dL (0.2-1.3); Total Protein 7.1 g/dL (6.3-8.2)
[2022-09-07 19:56] LABS: Basophils # (A) 0.1 k/uL (0-0.2); Basophils % (A) 1 %; Eosinophils # (A) 0.5 k/uL (0-0.7); Eosinophils % (A) 6 %; HCT 37.3 % (39.0-53.0); HGB 11.9 gm/dL (13.0-17.5); Lymphocytes # (A) 1.3 k/uL (1.0-4.8); Lymphocytes % (A) 17 %; MCH 32.2 pg (25.0-35.0); MCHC 31.9 g/dL (31.0-37.0); Mean Platelet Volume 7.9; Monocytes # (A) 0.6 k/uL (0-1.0); Monocytes % (A) 8 %; Neutrophils # (A) 4.9 k/uL (1.3-7.7); Neutrophils % (A) 66 %; Platelet Count 258 k/uL (150-450); RBC 3.69 m/uL (4.30-5.90); RDW 13.3 % (11.5-15.5); WBC 7.5 k/uL (3.8-10.6)
--- NOTE | 2022-09-07 20:00 | XR ---
EXAMINATION TYPE: XR chest 2V DATE OF EXAM: 09/07/2022 7:44 PM COMPARISON: Chest radiographs from 05/26/2020 TECHNIQUE: XR chest 2V Frontal and lateral views of the chest. CLINICAL INDICATION:Male, 72 years old with history of preop clearance; FINDINGS: Lungs/Pleura: Small right pleural effusion. No focal consolidation. 6 mm right midlung pulmonary nodu le. Pulmonary vascularity: Unremarkable. Heart/mediastinum: Cardiomediastinal silhouette is unremarkable. Atherosclerotic calcifications are seen in the aorta. Musculoskeletal: No acute osseous pathology. IMPRESSION: 1. Small right pleural effusion with associated atelectasis. 2. 6 mm right midlung pulmonary nodule. Consider further evaluation with CT chest.
[2022-09-07 20:09] LABS: Partial Thromboplastin Time 25.5 sec (22.0-30.0); Prothrombin Time 10.1 sec (9.0-12.0)
[2022-09-07] MEDS: Insulin Aspart (For Pump) 100 UNIT/ML VIAL SQ-PUMP SCH (23:10)
[2022-09-07] MEDS: carvediloL 6.25 MG TAB PO SCH (23:17)
[2022-09-08 01:42] LABS: Glucose,Whole Blood 319 mg/dL (70-110)
[2022-09-08 08:56] LABS: Glucose,Whole Blood 272 mg/dL (70-110)
[2022-09-08] MEDS: CALCIUM ACETATE 667 MG TAB PO SCH ×3 (09:31→18:34)
[2022-09-08] MEDS: ATORVASTATIN 20 MG TAB PO SCH (09:31)
[2022-09-08] MEDS: carvediloL 6.25 MG TAB PO SCH ×2 (09:32→18:34)
--- NOTE | 2022-09-08 09:46 | P.CONS ---
History of Present Illness - History of Present Illness This is a pleasant 72 years old male with multiple medical problems including Diabetes Mellitus, Hyperlipidemia, Hypertension, Osteoarthritis , Dialysis . He is a patient of Dr. Pradhan pt c/o increased left hip pain.x 1 weeks, pt denies any injury or trauma or falling however he has difficulty walking patient denies any other symptoms. No cardiac, GI urinary or pulmonary symptoms. Patient does not use oxygen at home Patient denies smoking, he smoked very long long time ago. He quit drinking 2 years ago, no illicit drugs He uses an insulin pump for diabetes and follow-up with Dr. Gay (! Unknown spelling) as an outpatient from endocrinology service vitals are stable and patient is afebrile. Patient CBC showed mild anemia 11.9, rest of CBC, INR is unremarkable. Report 0.8, potassium 5.2. glucose slightly elevated to 287, 319, 72. Enzymes are not elevated. EKG showed normal sinus rhythm at [address]-T changes. chest x-ray: Right mid lung 6 mm nodule, recommend further evaluation with CAT scan Right hip CAT scan subacute appearing nondisplaced proximal femoral neck fracture with sclerosis Lumbar x-ray showing no acute fracture or dislocation degenerative disease which is mild Review of Systems Review of systems CONSTITUTIONAL: No fever, no malaise, no fatigue. HEENT: No recent visual problems or hearing problems. Denied any sore throat. CARDIOVASCULAR: No orthopnea, PND, no palpitations, no syncope. PULMONARY: No shortness of breath, no cough, no hemoptysis. GASTROINTESTINAL: No diarrhea, no nausea, no vomiting, no abdominal pain. Normoactive bowel sounds. NEUROLOGICAL: No headaches, no weakness, no numbness. HEMATOLOGICAL: Denies any bleeding or petechiae. GENITOURINARY: Denies any burning micturition, frequency, or urgency. MUSCULOSKELETAL/RHEUMATOLOGICAL: Denies any joint pain, swelling, or any muscle pain. ENDOCRINE: Denies any polyuria or polydipsia. Past Medical History Past Medical History: Cancer, Diabetes Mellitus, Hyperlipidemia, Hypertension, Osteoarthritis (OA), Renal Disease Additional Past Medical History / Comment(s): Hx skin cancer. Dialysis . "Fingers keep numbing up." History of Any Multi-Drug Resistant Organisms: None Reported Past Surgical History: Adenoidectomy, Cholecystectomy, Tonsillectomy Additional Past Surgical History / Comment(s): Skin cancer removed, bilateral cataracts removed, fistula on left arm. Past Anesthesia/Blood Transfusion Reactions: No Reported Reaction Additional Past Anesthesia/Blood Transfusion Reaction / Comm: No hx blood transfusion. Past Psychological History: No Psychological Hx Reported Smoking Status: Never smoker Past Alcohol Use History: Occasional Past Drug Use History: None Reported - Past Family History Father Family Medical History: CVA/TIA, Hypertension Mother Family Medical History: No Reported History Sister(s) Family Medical History: Cancer Additional Family Medical History / Comment(s): Breast cancer. Medications and Allergies Home Medications Medication Instructions Recorded Confirmed Type Insulin Aspart (For Pump) [NovoLOG 0.01 unit SQ-PUMP CONTINUOUS 12/01/2008/10 History (For Pump)] carvediloL [Coreg] 6.25 mg PO BID 12/01/20 09/07/22 History Renavite 1 tab PO DAILY 04/12/22 09/07/22 History Atorvastatin [Lipitor] 20 mg PO DAILY 09/07/22 09/07/22 History Calcium Acetate [Phoslo] 667 mg PO TID-W/MEALS 09/07/22 09/07/22 History Glucagon [Gvoke Pfs 1-Pack Syringe] 1 mg SQ DIRECTED PRN 09/07/22 09/07/22 History sitaGLIPtin [Januvia] 50 mg PO DAILY 09/07/22 09/07/22 History Allergies Allergy/AdvReac Type Severity Reaction Status Date / Time No Known Allergies Allergy Verified 09/07/22 19:34 Physical Exam Vitals: Vital Signs Temp Pulse Resp BP Pulse Ox 09/08/22 05:24 63 16 138/63 98 09/08/22 03:15 68 16 138/63 98 09/08/22 01:45 65 15 138/65 98 09/07/22 21:56 80 15 138/63 96 09/07/22 19:19 86 15 165/77 99 09/07/22 16:33 98.5 F 76 20 146/60 98 Intake and Output 09/07/22 09/08/22 09/08/22 22:59 06:59 14:59 Other: Weight 60.781 kg GENERAL: The patient is alert and oriented x3, not in any acute distress. Well developed, well nourished. HEENT: Pupils are round and equally reacting to light. EOMI. No scleral icterus. No conjunctival pallor. Normocephalic, atraumatic. No pharyngeal erythema. No thyromegaly. CARDIOVASCULAR: S1 and S2 present. No murmurs, rubs, or gallops. PULMONARY: Chest is clear to auscultation, no wheezing or crackles. ABDOMEN: Soft, nontender, nondistended, normoactive bowel sounds. No palpable organomegaly. MUSCULOSKELETAL: No joint swelling or deformity. EXTREMITIES: No cyanosis, clubbing, or pedal edema. NEUROLOGICAL: Gross neurological examination did not reveal any focal deficits. SKIN: No rashes. no petechiae. Results CBC & Chem 7: 09/07/22 19:30 09/07/22 19: Labs: Abnormal Lab Results - Last 24 Hours (Table) 09/07/22 09/07/22 09/08/22 Range/Units 19:30 19:30 01:39 RBC 3.69 L (4.30-5.90) m/uL Hgb 11.9 L (13.0-17.5) gm/dL Hct 37.3 L (39.0-53.0) % MCV 101.0 H (80.0-100.0) fL Potassium 5.2 H (3.5-5.1) mmol/L Chloride 96 L (98-107) mmol/L Carbon Dioxide 32 H (22-30) mmol/L BUN 38 H (9-20) mg/dL Creatinine 4.81 H (0.66-1.25) mg/dL Glucose 287 H (74-99) mg/dL POC Glucose (mg/dL) 319 H (70-110) mg/dL 09/08/22 Range/Units 08:54 RBC (4.30-5.90) m/uL Hgb (13.0-17.5) gm/dL Hct (39.0-53.0) % MCV (80.0-100.0) fL Potassium (3.5-5.1) mmol/L Chloride (98-107) mmol/L Carbon Dioxide (22-30) mmol/L BUN (9-20) mg/dL Creatinine (0.66-1.25) mg/dL Glucose (74-99) mg/dL POC Glucose (mg/dL) 272 H (70-110) mg/dL Assessment and Plan Assessment: subacute Non-traumatic nondisplaced proximal femoral neck fracture End stage renal disease on hemodialysis Diabetes mellitus, with hyperglycemia Hypertension History of osteoarthritis Plan: Orthopedic primary team on the case for surgical fixation pt will be at risk from surgery , but there is no absolute contra-indication to proceed with surgery from medical perspective nephrology consult and continue dialysis per their recommendation Pain management Continue with beta vicki Follow-up pathology report of the hip surgery recommend patient follow up with pulmonary service upon discharge, contact information for Dr. Sharp is provided in the discharge instructions already. Patient informed and he agrees patient informed of this recommendation, also with the risk of cancer and he verbalized understanding and acceptance. Labs and medication were reviewed.. Continue same treatment. Continue with symptomatic treatment. Resume home medication. Monitor labs and vitals. DVT and GI prophylaxis. Further recommendations as per clinical course of the patient DVT prophylaxis: Deferred to surgery team GI Prophylaxis: Pepcid PT/OT: Pending Prognosis is guarded Thank you for consulting us and we will follow up
[2022-09-08] MEDS: FOLIC ACID-VIT B COMPLEX-VIT C 1 CAP PO SCH (10:01)
--- NOTE | 2022-09-08 11:33 | MR ---
EXAMINATION TYPE: MR hip LT wo con DATE OF EXAM: 09/08/2022 11:10 AM CLINICAL INDICATION:Male, 72 years old with history of femoral neck fracture; Left Femoral Neck fract ure COMPARISON: CT 09/07/2022 plain film same day TECHNIQUE: Multiplanar multi-sequential magnetic resonance imaging of the left hip without contrast. IV Contrast: none FINDINGS: Joint spaces and alignment: No evidence for joint dislocation there is trace joint effusion present. Joint/bursal fluid: Trace joint effusion present. Articular cartilage: Thinning of the cartilage most pronounced superiorly with full-t hickness tear suggested by subchondral cystic change. Acetabular labrum: Degenerative labrum nondisplaced appearance of the labrum. Muscles/Tendons: The tendons of the hip are intact. There is inversion recovery signal in the at the insertions of the greater trochanter (adductor muscle insertions) as well as the abductor muscles minnie fascial planes. The hamstring insertions are within normal limits. Right hip arthroplasty changes wit h associated metal artifact. Intrapelvic structures: Normal, no suspicious masses. Neurovascular structures: Normal Marrow: High T2 signal seen within the left femoral neck surrounding a curvilinear fracture line in t he subcapital region. There is no evidence of fracture or acute process. The sacroiliac joints and pu bic symphysis are noted to be unremarkable. Subchondral cystic changes around the superior aspect of the acetabulum. Soft tissues: Soft tissue edema around the left subcutaneous tissues of the thigh and in the myofasci al planes around the left hip. Other: The prostate, seminal vesicles, and urinary bladder are unremarkable. No lymphadenopathy is v isualized. IMPRESSION: 1. Acute/subacute left basal subcapital femoral neck fracture with associated bone marrow edema and surrounding edema within the musculature likely reactive and trace joint effusion. 2. Left Gluteus medius insertional tendinosis. 3. Right hip arthroplasty changes. 4. Moderate to severe left hip osteoarthritis changes with joint space narrowing and cartilage thinn ing and a degenerative labrum.
--- NOTE | 2022-09-08 12:05 | P.NPCON ---
History of Present Illness - Reason for Consult end stage renal disease - History of Present Illness Reason for consultation: End-stage renal disease History of present illness: Patient is a 72-year-old male seen in renal consultation for end-stage renal disease. Patient was seen and examined in the emergency room. He is maintained on hemodialysis on Monday started schedule via left upper extremity AV fistula. Patient came to the hospital due to left-sided hip pain going on for about one week. Patient states he was having a difficult time walking. MRI showed acute up At the left femoral neck fracture as well as osteoarthritic changes. Hemodynamically stable. No fever or chills. On room air. Denies chest pain or shortness of breath. Patient has history of diabetes and hyperlip idemia. No active complaints. No vomiting or diarrhea. Vital signs are stable. General: No acute distress. HEENT: Head exam is unremarkable. LUNGS: No audible rhonchi or wheeze. HEART: Rate and Rhythm are regular. ABDOMEN: Nontender. EXTREMITITES: No edema. Past Medical History Past Medical History: Cancer, Diabetes Mellitus, Hyperlipidemia, Hypertension, Osteoarthritis (OA), Renal Disease Additional Past Medical History / Comment(s): Hx skin cancer. Dialysis . "Fingers keep numbing up." History of Any Multi-Drug Resistant Organisms: None Reported Past Surgical History: Adenoidectomy, Cholecystectomy, Tonsillectomy Additional Past Surgical History / Comment(s): Skin cancer removed, bilateral cataracts removed, fistula on left arm. Past Anesthesia/Blood Transfusion Reactions: No Reported Reaction Additional Past Anesthesia/Blood Transfusion Reaction / Comment(s): No hx blood transfusion. Past Psychological History: No Psychological Hx Reported Smoking Status: Never smoker Past Alcohol Use History: Occasional Past Drug Use History: None Reported - Past Family History Father Family Medical History: CVA/TIA, Hypertension Mother Family Medical History: No Reported History Sister(s) Family Medical History: Cancer Additional Family Medical History / Comment(s): Breast cancer. Medications and Allergies Home Medications Medication Instructions Recorded Confirmed Type Insulin Aspart (For Pump) [NovoLOG 0.01 unit SQ-PUMP CONTINUOUS 12/01/20 09/07/22 History (For Pump)] carvediloL [Coreg] 6.25 mg PO BID 12/01/20 09/07/22 History Renavite 1 tab PO DAILY 04/12/22 09/07/22 History Atorvastatin [Lipitor] 20 mg PO DAILY 09/07/22 09/07/22 History Calcium Acetate [Phoslo] 667 mg PO TID-W/MEALS 09/07/22 09/07/22 History Glucagon [Gvoke Pfs 1-Pack Syringe] 1 mg SQ DIRECTED PRN 09/07/22 09/07/22 History sitaGLIPtin [Januvia] 50 mg PO DAILY 09/07/22 09/07/22 History Allergies Allergy/AdvReac Type Severity Reaction Status Date / Time No Known Allergies Allergy Verified 09/07/22 19:34 Physical Exam Vitals: Vital Signs Temp Pulse Resp BP Pulse Ox 09/08/22 09:38 80 20 149/73 97 09/08/22 05:24 63 16 138/63 98 09/08/22 03:15 68 16 138/63 98 09/08/22 01:45 65 15 138/65 98 09/07/22 21:56 80 15 138/63 96 09/07/22 19:19 86 15 165/77 99 09/07/22 16:33 98.5 F 76 20 146/60 98 Intake and Output 09/07/22 09/08/22 09/08/22 22:59 06:59 14:59 Other: Weight 60.781 kg Results - Lab Results Most recent lab results Calcium 8.8 mg/dL (8.4-10.2) 09/07/22 19:30 09/07/22 19:30 09/07/22 19:30 Assessment and Plan Plan: Assessment: 1. End-stage renal disease august 17 on hemodialysis on Monday schedule via left upper extremity AV fistula. 2. Left femoral neck fracture. Orthopedic surgery following. 3. Chronic kidney disease mineral bone disease maintained on PhosLo. 4. Hypertension with chronic kidney disease. Stable. 5. Diabetes mellitus. Plan: Hemodialysis today. Thank you for the consultation. I will continue to follow the patient with you during his hospital stay.
[2022-09-08] MEDS ORDERED: ROPIVACAINE/EPI/CLONIDINE/KET 50 ML SYRINGE MISCELLANE PRN (13:29)
[2022-09-08] MEDS ORDERED: TRANEXAMIC ACID 1,000 MG in SODIUM CHLORIDE 0.9% 100 ML IVPB ONE ×4 (13:30)
--- NOTE | 2022-09-08 13:39 | P.HPOR ---
History of Present Illness H&P Date: 09/08/22 This patient is a 72- year old male with a past medical history of end stage renal disease on dialysis, diabetes that presented to [facility] emergency department on 09/07/22 with complaints of increasing left hip pain. Patient states there was no fall or injury he is aware of. His left hip started about a week ago. He states he has been unable to walk with significant pain therefore he presented to the ED for further evaluation. X-rays and CT scan revealed a left femoral neck fracture. Patient was admitted under the care of orthopedic surgery with a consult placed to internal medicine, nephrology for medical management. Patient is examined bedside in the emergency department this morning with Dr. Ken. He is complaining of isolated left hip pain. No additional complaints at this time. Patient also has a history of right hip hemiarthroplasty in [place] [address] Ken. Past Medical History Past Medical History: Cancer, Diabetes Mellitus, Hyperlipidemia, Hypertension, Osteoarthritis (OA), Renal Disease Additional Past Medical History / Comment(s): Hx skin cancer. Dialysis . "Fingers keep numbing up." History of Any Multi-Drug Resistant Organisms: None Reported Past Surgical History: Adenoidectomy, Cholecystectomy, Tonsillectomy Additional Past Surgical History / Comment(s): Skin cancer removed, bilateral cataracts removed, fistula on left arm. Past Anesthesia/Blood Transfusion Reactions: No Reported Reaction Additional Past Anesthesia/Blood Transfusion Reaction / Comment(s): No hx blood transfusion. Past Psychological History: No Psychological Hx Reported Smoking Status: Never smoker Past Alcohol Use History: Occasional Past Drug Use History: None Reported - Past Family History Father Family Medical History: CVA/TIA, Hypertension Mother Family Medical History: No Reported History Sister(s) Family Medical History: Cancer Additional Family Medical History / Comment(s): Breast cancer. Medications and Allergies Home Medications Medication Instructions Recorded Confirmed Type Insulin Aspart (For Pump) [NovoLOG 0.01 unit SQ-PUMP CONTINUOUS 12/01/20 09/07/22 History (For Pump)] carvediloL [Coreg] 6.25 mg PO BID 12/01/20 09/07/22 History Renavite 1 tab PO DAILY 04/12/22 09/07/22 History Atorvastatin [Lipitor] 20 mg PO DAILY 09/07/22 09/07/22 History Calcium Acetate [Phoslo] 667 mg PO TID-W/MEALS 09/07/22 09/07/22 History Glucagon [Gvoke Pfs 1-Pack Syringe] 1 mg SQ DIRECTED PRN 09/07/22 09/07/22 History sitaGLIPtin [Januvia] 50 mg PO DAILY 09/07/22 09/07/22 History Allergies Allergy/AdvReac Type Severity Reaction Status Date / Time No Known Allergies Allergy Verified 09/07/22 19:34 Physical Examination On examination, patient is sitting up on the gurney in no apparent distress. He is alert and orientated x3. His head appears normocephalic and atraumatic. His breathing appears non-labored. On inspection of the bilateral upper extremities, no obvious deformities or signs of trauma. On inspection of the right hip, there is a healed incision at the anterior hip. No pain with PROM of the right hip. There is severe pain with attempts at passive [id number] of the left hip. No pain with palpation of the left thigh, knee, lower leg, ankle, foot. Motor and sensory function is intact of the left lower extremity. Left lower extremity is warm and well perfused. Results Left hip MRI 09/08/22: Acute appearing left femoral neck fracture - Labs Labs: Abnormal Lab Results - Last 24 Hours (Table) 09/07/22 09/07/22 09/08/22 Range/Units 19:30 19:30 01:39 RBC 3.69 L (4.30-5.90) m/uL Hgb 11.9 L (13.0-17.5) gm/dL Hct 37.3 L (39.0-53.0) % MCV 101.0 H (80.0-100.0) fL Potassium 5.2 H (3.5-5.1) mmol/L Chloride 96 L (98-107) mmol/L Carbon Dioxide 32 H (22-30) mmol/L BUN 38 H (9-20) mg/dL Creatinine 4.81 H (0.66-1.25) mg/dL Glucose 287 H (74-99) mg/dL POC Glucose (mg/dL) 319 H (70-110) mg/dL 09/08/22 Range/Units 08:54 RBC (4.30-5.90) m/uL Hgb (13.0-17.5) gm/dL Hct (39.0-53.0) % MCV (80.0-100.0) fL Potassium (3.5-5.1) mmol/L Chloride (98-107) mmol/L Carbon Dioxide (22-30) mmol/L BUN (9-20) mg/dL Creatinine (0.66-1.25) mg/dL Glucose (74-99) mg/dL POC Glucose (mg/dL) 272 H (70-110) mg/dL H & H 09/07/22 Range/Units 19:30 Hgb 11.9 L (13.0-17.5) gm/dL Hct 37.3 L (39.0-53.0) % Coagulation 09/07/22 Range/Units 19:30 INR 1.0 (<1.2) Result Diagrams: 09/07/22 19:30 09/07/22 19:30 Assessment and Plan Assessment: Acute left femoral neck fracture Plan: MRI of the left hip reviewed with Dr. Ken. Left femoral neck fracture appears acute. Patient is ambulatory at baseline and is unable to bear weight on left lower extremity due to pain. Recommend left hip hemiarthroplasty for left femoral neck fracture this afternoon. Patient has been evaluated and cleared by internal medicine and nephrology this morning. We will plan for OR later today. NPO diet.
[2022-09-08 14:35] LABS: Glucose,Whole Blood 222 mg/dL (70-110)
[2022-09-08 19:24] LABS: African American GFR (CKD) 29 (>60 ml/min/1.73 sqM); Anion Gap 7 mmol/L; Blood Urea Nitrogen 17 mg/dL (9-20); Calcium 8.5 mg/dL (8.4-10.2); Carbon Dioxide 33 mmol/L (22-30); Chloride 96 mmol/L (98-107); Glucose 96 mg/dL (74-99); Non-African American GFR(CKD) 25 (>60 ml/min/1.73 sqM); Potassium 3.9 mmol/L (3.5-5.1); Sodium 136 mmol/L (137-145)
[2022-09-08 19:25] LABS: Glucose,Whole Blood 86 mg/dL (70-110)
[2022-09-08] MEDS: Insulin Aspart (For Pump) 100 UNIT/ML VIAL SQ-PUMP SCH (19:38)
[2022-09-08] MEDS: FAMOTIDINE 20 MG/2 ML VIAL IV SCH (20:21)
[2022-09-08 22:06] LABS: Glucose,Whole Blood 177 mg/dL (70-110)
[2022-09-09 02:46] LABS: Hepatitis B Surface Antibody Reactive (Nonreactive)
[2022-09-09 02:56] LABS: Hepatitis B Surface Antigen Nonreactive (Nonreactive)
[2022-09-09 05:42] LABS: Glucose,Whole Blood 213 mg/dL (70-110)
[2022-09-09] MEDS: CALCIUM ACETATE 667 MG TAB PO SCH ×3 (05:42→17:28)
[2022-09-09] MEDS: carvediloL 6.25 MG TAB PO SCH ×2 (07:12→17:28)
[2022-09-09] MEDS: ATORVASTATIN 20 MG TAB PO SCH (08:33)
[2022-09-09] MEDS: FOLIC ACID-VIT B COMPLEX-VIT C 1 CAP PO SCH (08:33)
--- NOTE | 2022-09-09 10:42 | P.PN ---
Subjective Patient is seen in follow-up for end-stage renal disease. He is maintained on hemodialysis on Monday schedule. No problems with dialysis yesterday. Scheduled for left hip hemiarthroplasty today. Denies chest pain or shortness of breath. Vital signs are stable. General: No acute distress. HEENT: Head exam is unremarkable. LUNGS: No audible rhonchi or wheezes. HEART: Rate and Rhythm are regular. ABDOMEN: Nontender. EXTREMITITES: No edema. Objective - Vital Signs Vital signs: Vital Signs Temp 98.0 F 09/09/22 08:35 Pulse 73 09/09/22 08:35 Resp 16 09/09/22 08:35 BP 143/67 09/09/22 08:35 Pulse Ox 98 09/09/22 08:35 FiO2 Intake & Output 09/08/22 09/09/22 09/09/22 18:59 06:59 18:59 Intake Total 700 Output Total 1700 Balance -1000 Weight 60.781 kg Intake: Hemodialysis 700 Output: Hemodialysis 1700 Other: # Voids 2 - Labs CBC & Chem 7: 09/07/22 19:30 09/08/22 18:49 Labs: Abnormal Lab Results - Last 24 Hours (Table) 09/08/22 09/08/22 09/08/22 Range/Units 14:34 16:01 18:49 Sodium 136 L (137-145) mmol/L Chloride 96 L (98-107) mmol/L Carbon Dioxide 33 H (22-30) mmol/L Creatinine 2.42 H (0.66-1.25) mg/dL POC Glucose (mg/dL) 222 H (70-110) mg/dL Hep Bs Antibody Reactive A (Nonreactive) 09/08/22 09/09/22 Range/Units 22:05 05:40 Sodium (137-145) mmol/L Chloride (98-107) mmol/L Carbon Dioxide (22-30) mmol/L Creatinine (0.66-1.25) mg/dL POC Glucose (mg/dL) 177 H 213 H (70-110) mg/dL Hep Bs Antibody (Nonreactive) Assessment and Plan Plan: Assessment: 1. End-stage renal disease august 17 on hemodialysis on Monday schedule via left upper extremity AV fistula. 2. Left femoral neck fracture. Orthopedic surgery following. Left hemiarthroplasty today. 3. Chronic kidney disease mineral bone disease maintained on PhosLo. 4. Hypertension with chronic kidney disease. Stable. 5. Diabetes mellitus. Plan: Hemodialysis tomorrow.
[2022-09-09 10:56] LABS: Glucose,Whole Blood 257 mg/dL (70-110)
[2022-09-09] MEDS: Insulin Aspart (For Pump) 100 UNIT/ML VIAL SQ-PUMP SCH (11:46)
[2022-09-09] MEDS ORDERED: EPINEPHrine 2 MG in SODIUM CHLORIDE 0.9% 200 ML IRRIGATION ONE (12:00)
[2022-09-09 13:15] LABS: ALT 20 U/L (4-49); AST 31 U/L (17-59); African American GFR (CKD) 16 (>60 ml/min/1.73 sqM); Albumin 3.5 g/dL (3.5-5.0); Albumin/Globulin Ratio 1.2; Alkaline Phosphatase 76 U/L (38-126); Anion Gap 16 mmol/L; Blood Urea Nitrogen 35 mg/dL (9-20); Calcium 8.5 mg/dL (8.4-10.2); Carbon Dioxide 21 mmol/L (22-30); Chloride 96 mmol/L (98-107); Globulin 2.9 g/dL; Glucose 279 mg/dL (74-99); Non-African American GFR(CKD) 14 (>60 ml/min/1.73 sqM); Potassium 4.9 mmol/L (3.5-5.1); Sodium 133 mmol/L (137-145); Total Bilirubin 0.7 mg/dL (0.2-1.3); Total Protein 6.4 g/dL (6.3-8.2)
[2022-09-09] MEDS ORDERED: LACTATED RINGERS 1,000 ML IV ONE (13:24)
[2022-09-09 13:29] LABS: Prothrombin Time 10.5 sec (9.0-12.0)
[2022-09-09] MEDS ORDERED: SODIUM CHLORIDE 0.9% 500 ML 500 ML IV ONE (13:30)
[2022-09-09] MEDS ORDERED: ONDANSETRON 4 MG/2 ML VIAL IVP ONE (13:33)
[2022-09-09] MEDS: DEXAMETHASONE SOD PHOSPHATE 4 MG/ML 1 ML VIAL IVP ONE ×2 (13:33→13:45)
[2022-09-09 13:38] LABS: ALT 22 U/L (4-49); AST 32 U/L (17-59); African American GFR (CKD) 16 (>60 ml/min/1.73 sqM); Albumin 3.7 g/dL (3.5-5.0); Albumin/Globulin Ratio 1.2; Alkaline Phosphatase 77 U/L (38-126); Anion Gap 14 mmol/L; Blood Urea Nitrogen 37 mg/dL (9-20); Calcium 8.6 mg/dL (8.4-10.2); Carbon Dioxide 24 mmol/L (22-30); Chloride 96 mmol/L (98-107); Globulin 3.1 g/dL; Glucose 286 mg/dL (74-99); Non-African American GFR(CKD) 14 (>60 ml/min/1.73 sqM); Potassium 4.8 mmol/L (3.5-5.1); Sodium 134 mmol/L (137-145); Total Bilirubin 0.8 mg/dL (0.2-1.3); Total Protein 6.8 g/dL (6.3-8.2)
[2022-09-09 13:49] LABS: INR 0.9 (<1.2); Partial Thromboplastin Time 25.4 sec (22.0-30.0); Prothrombin Time 10.1 sec (9.0-12.0)
[2022-09-09] MEDS ORDERED: INSULIN ASPART (NovoLOG) 100 UNIT/ML VIAL SQ ONE (13:52)
[2022-09-09] MEDS ORDERED: KETAMINE 10 MG/ML 20 ML VIAL ONE (14:13)
[2022-09-09] MEDS ORDERED: ROCURONIUM 10 MG/ML (5 ML VIAL) IV ONE (14:13)
[2022-09-09] MEDS ORDERED: PROPOFOL 10 MG/ML 20 ML VIAL IV ONE (14:13)
[2022-09-09] MEDS ORDERED: GLYCOPYRROLATE 0.2 MG/ML 2 ML VIAL ONE (14:13)
[2022-09-09] MEDS ORDERED: TRANEXAMIC ACID IN NACL,ISO-OS 1,000 MG/100 ML BAG ONE (14:13)
[2022-09-09] MEDS ORDERED: fentaNYL (PF) 50 MCG/ML 2 ML AMP ONE (14:13)
[2022-09-09] MEDS ORDERED: MIDAZOLAM 2 MG/2 ML VIAL ONE (14:13)
[2022-09-09] MEDS ORDERED: SUCCINYLCHOLINE CHLORIDE 200 MG/10 ML VIAL IV ONE (14:13)
[2022-09-09] MEDS ORDERED: NEOSTIGMINE 1 MG/ML 10 ML VIAL ONE (14:13)
[2022-09-09] MEDS ORDERED: SODIUM CHLORIDE 0.9% 50 ML with ceFAZolin 2,000 MG IV ONE ×2 (14:17)
[2022-09-09] MEDS ORDERED: TRANEXAMIC ACID 1,000 MG in SODIUM CHLORIDE 0.9% 100 ML IVPB ONE ×2 (14:45→14:46)
[2022-09-09] MEDS ORDERED: EPINEPHrine 2 MG in SODIUM CHLORIDE 0.9% 200 ML IV ONE (15:15)
[2022-09-09] MEDS ORDERED: ROPIVACAINE 5 MG/ML 20 ML AMPULE MISCELLANE ONE ×2 (15:18→16:08)
--- NOTE | 2022-09-09 16:32 | XR ---
Fluoroscopy History: Left Hip Esau Left hip hemiarthroplasty 41 sec fl 2.1797 DAP
--- NOTE | 2022-09-09 16:44 | P.OP ---
Date of Procedure: 09/09/22 Preoperative Diagnosis: 1. Likely acute, left subcapital femoral neck fracture 2. Chronic renal failure on dialysis 3. Prior right hip fracture treated with a hemiarthroplasty Postoperative Diagnosis: Same Procedure(s) Performed: Left direct anterior hip hemiarthroplasty Implants: Esme accolade C high offset stem, bipolar femoral head 50 mm outer diameter, 28 mm -4 inner diameter head Anesthesia: GETA Surgeon: Helder Ken Gopherman #1: Estiven Guadalupe Estimated Blood Loss (ml): 100 IV fluids (ml): 300 Pathology: none sent Condition: stable Disposition: PACU Indications for Procedure: The patient is a very pleasant 72 old male multiple medical problems including end-stage renal disease on dialysis was had 1 week of increasing left hip pain. He had a difficult time ambulating and consulting with brought into the ER where x-rays and computed tomography scan showed an age-indeterminate subcapital femoral neck fracture. He was admitted under the care of my partner Dr. Zafar Patel. Dr. Patel was leaving out of town for vacation and asked that I assume care for the patient as I had previously fixed his right hip fracture. I met with the patient the following day after he had been admitted to Dr. Patel and evaluated the patient is imaging. The patient had pain with passive range of motion of the left hip and an inability to ambulate. Due to his equivocal findings on x-ray and computed tomography scan and MRI was ordered which showed a subcapital femoral neck fracture and edema. The radiologist also read it as a likely acute subcapital femoral neck fracture. Based on his MRI imaging, an inability to ambulate, and pain with any passive range motion of the hip I recommendation was to proceed with a hemiarthroplasty rather than in situ screw fixation. I discussed this with the patient's caregiver who agreed. I met with the patient and their family to discuss treatment options. I recommended a hip hemiarthroplasty to facilitate early mobilization. My recommendation was to perform the hemiarthroplasty through a direct anterior approach to help lower the risk of dislocation and improve postoperative recovery and use cemented fixation of the femoral component to reduce the risk of fracture and postoperative thigh pain. We discussed the potential risks and complications of a hemiarthroplasty for displaced femoral neck fracture at length. Risks discussed include are certainly not limited to risks from anesthesia, superficial infection requiring local wound care and possibly surgical debridement, deep periprosthetic joint infection and the treatment for this, damage to local blood vessels or nerves particularly the lateral femoral cutaneous nerve, intraoperative fracture, postoperative periprosthetic fracture, leg length discrepancy, hip dislocation, aseptic loosening, groin pain, thigh pain, progression of arthritis requiring conversion to total hip arthroplasty, complications related to cementing the component, an inability to regain preinjury level of function, DVT, PE, acute coronary event, stroke, pneumonia, urinary tract infection, failure to thrive, and possibly . The patient and their family understand that while these are the most common complications other less common complications are possible. They provided their verbal and written consent to go forward with surgery. Operative Findings: Small hemarthrosis suggestive of an acute femoral neck fracture. Description of Procedure: The patient was identified in the preoperative holding area and the correct hip was marked with my initials. I reviewed the procedure and consent with the patient. All of their questions were answered. The patient was then brought back into the operating room by anesthesia. While on the [facility] anesthesia was administered by the anesthesia team. Preoperative antibiotics and tranexamic acid were also given. After the patient was under anesthesia I examined their ankles to determine their preoperative leg length discrepancy. The skin over the anterior aspect of the hip was shaved to remove hair over the site of planned incision. Both feet and ankles were padded with webril and boots for the Basalt were applied. The patient was then carefully transferred onto the Bas[place] table. A perineal post was immediately placed. The arms were placed on arm holders and were well-padded. Both boots were secured to the spars on the Basalt table. The patient was positioned so that the pelvis was centered over the post. Nonsterile drapes were applied. A timeout was performed identifying the correct patient, operative extremity, and procedure. At this point fluoroscopy was brought in to take preoperative images of the pelvis and operative hip. A metallic bar was used to create a bi-ischial line for use as a reference to leg length adjustments during the procedure. Global offset was also measured on both the operative and nonoperative leg. Fluoroscopy was then brought out and a pre-scrub using a chlorhexidine scrub brush was performed. The operative limb was then prepped and draped in the standard sterile fashion. An anterior longitudinal incision was made lateral and distal to the ASIS. The skin and subcutaneous tissues were incised sharply. The underlying tensor fascia was identified and incised in its midportion. The fascia was dissected free from the underlying muscle and the muscle belly was retracted. A blunt tipped cobra retractor was placed over the superior neck under the muscle fibers of the gluteus minimus. The deep enveloping fascia of the tensor was incised. The anterior leash of vessels were then identified and cauterized. The fascia between the rectus and the capsule was then incised and the pre-capsular fat was excised. A second Cobra was placed inferior to the neck. The interval between the rectus and iliocapsularis and the hip capsule was developed and a retractor was placed carefully over the anterior rim of the acetabulum. A T-shaped anterior capsulotomy was performed. A hemarthrosis consistent with a femoral neck fracture was identified. The superior capsular leaflet was left in place in the inferior capsular flap was excised. The Cobra retractors were placed intracapsularly. A displaced femoral neck fracture was then identified. We then made a femoral neck osteotomy according to preoperative and intraoperative templating and confirmed the level of the osteotomy using fluoroscopic imaging. The femoral head was removed, passed off to the back table, and sized. The superior capsular flap was excised. On inspection of the acetabulum there were minimal degenerative changes with intact cartilage. Attention was then turned to the femur. The remnant dorsal lateral capsule was excised. The short external rotators were visible and protected. A bone hook was used to confirm appropriate translation of the trochanter away from the acetabulum. The leg was then extended and adducted and the bone hook was used to elevate the femur for broaching. A box osteotome and blunt tipped canal sound was then utilized to gain access to the femoral canal. We then sequentially broached the femur in appropriate anteversion until torsional stability was achieved and the implant was felt to have reached the appropriate size to allow trialing. The neck cut was brought flush to the trial broach with a calcar planar. A trial neck and head were then placed onto the broach and the hip was atraumatically reduced under direct visualization. External rotation to 90 was performed to assess stability. Fluoroscopy was brought in. An AP and lateral fluoroscopic image of the proximal femur was obtained to assess position and fill of the trial broach. An AP of the pelvis was then obtained and matched to the preoperative image taken. A bi-ischial bar was then placed and measurements were taken to assess changes in length and offset. The hip was then carefully dislocated, the proximal femur was exposed, and the trial implants were removed. The proximal femur was then prepared for cementing. The canal was thoroughly irrigated with pulsatile lavage to remove blood and marrow contents. A cement restrictor was placed to a depth just distal to the tip of the final implant. Epinephrine-soaked gauze was then packed into the proximal femur. 2 bags of cement with antibiotics were then mixed using a centrifuge and placed into a cement gun. Anesthesia was notified that cementing was about to commence to make sure the patient was appropriately ventilated and hydrated. Once the cement had reached appropriate consistency, the cement gun was used to fill the canal in a retrograde fashion starting at the restrictor. Cement was then pressurized into the canal with a blue tipped chemical process analyst. The stem was then carefully introduced into the cement taking care to guide the implant into appropriate version. The stem was held in position until the cement had fully set. All extra cement was removed while the cement was hardening. The trunnion was cleansed and the final head was tapped into place to engage the Herrera taper. The acetabulum was irrigated and visualized to be free of debris. The hip was carefully reduced. Stability was checked clinically with external rotation to 90 and there was no evidence of instability. Final fluoroscopic images were taken. The wound was then thoroughly irrigated with Irrisept. 3 L of sterile saline was irrigated through the wound using pulsatile lavage. Local anesthetic cocktail was injected into the soft tissues around the surgical field. A deep drain was placed. The wound was then closed in layers. A sterile dressing was placed over the surgical incision and drain site. The drapes were taken down and the patient was carefully transferred off of the Basalt table. Following removal of the boots the leg lengths felt acceptable. The patient was then taken to recovery room having tolerated the procedure well. Estiven Guadalupe PA-C was required as a skilled embroidery assistant for patient positioning, surgical exposure, retraction, placement of implants, and closure of the surgical wound. PLAN: The patient can weight-bear as tolerated on the operative extremity. 2 doses of postoperative antibiotics. DVT prophylaxis with aspirin 81 mg twice a day based on preoperative risk stratification. Physical therapy for gait training. Discontinue drain postoperative day #1 if output is less than 100 mL per shift.
[2022-09-09] MEDS ORDERED: hydrOXYzine pamoate 25 MG CAP PO PRN (16:46)
[2022-09-09 16:56] LABS: Glucose,Whole Blood 180 mg/dL (70-110)
[2022-09-09] MEDS ORDERED: HYDROmorphone 0.5 MG/0.5 ML SYRINGE IVP ONE (17:08)
[2022-09-09 19:53] LABS: Basophils % (A) 0 %; Eosinophils # (A) 0.1 k/uL (0-0.7); Eosinophils % (A) 1 %; HCT 39.1 % (39.0-53.0); HGB 12.6 gm/dL (13.0-17.5); Lymphocytes # (A) 0.9 k/uL (1.0-4.8); Lymphocytes % (A) 7 %; MCH 32.6 pg (25.0-35.0); MCHC 32.3 g/dL (31.0-37.0); MCV 100.9 fL (80.0-100.0); Mean Platelet Volume 7.6; Monocytes # (A) 0.2 k/uL (0-1.0); Monocytes % (A) 2 %; Neutrophils # (A) 11.4 k/uL (1.3-7.7); Neutrophils % (A) 90 %; Platelet Count 244 k/uL (150-450); RBC 3.87 m/uL (4.30-5.90); RDW 13.1 % (11.5-15.5); WBC 12.7 k/uL (3.8-10.6)
--- NOTE | 2022-09-09 20:10 | P.PN ---
Subjective This is a pleasant 72 years old male with multiple medical problems including Diabetes Mellitus, Hyperlipidemia, Hypertension, Osteoarthritis , Dialysis . He is a patient of Dr. Pradhan pt c/o increased left hip pain.x 1 weeks, pt denies any injury or trauma or falling however he has difficulty walking patient denies any other symptoms. No cardiac, GI urinary or pulmonary symptoms. Patient does not use oxygen at home Patient denies smoking, he smoked very long long time ago. He quit drinking 2 years ago, no illicit drugs He uses an insulin pump for diabetes and follow-up with Dr. Gay (! Unknown spelling) as an outpatient from endocrinology service vitals are stable and patient is afebrile. Patient CBC showed mild anemia 11.9, rest of CBC, INR is unremarkable. Report 0.8, potassium 5.2. glucose slightly elevated to 287, 319, 72. Enzymes are not elevated. EKG showed normal sinus rhythm at [address]-T changes. chest x-ray: Right mid lung 6 mm nodule, recommend further evaluation with CAT scan Right hip CAT scan subacute appearing nondisplaced proximal femoral neck fracture with sclerosis Lumbar x-ray showing no acute fracture or dislocation degenerative disease which is mild 09/09/2022 Patient lying in bed comfortable, he denies chest pain dyspnea No other new complaint Patient is still complaining from left hip pain and he cannot walk because of pain in the left hip area Patient will go for left hip hemiarthroplasty procedure later on today. [employer] team on the case for hemodialysis. We will keep monitoring Patient Proceeded to left hip surgery correction procedure from medical perspective although he has some risk. Patient already informed about long nodule in the need to follow up as an outpatient, he verbalized understanding and acceptance Objective - Vital Signs Vital signs: Vital Signs Temp 98.2 F 09/09/22 13:10 Pulse 74 09/09/22 13:10 Resp 18 09/09/22 13:10 BP 159/72 09/09/22 13:10 Pulse Ox 98 09/09/22 13:10 FiO2 Intake & Output 09/08/22 09/09/22 09/09/22 18:59 06:59 18:59 Intake Total 700 150 Output Total 1700 Balance -1000 150 Weight 60.781 kg Intake: IV 100 Intake, IV Titration 50 Amount ceFAZolin 2 gm In Sodium 50 Chloride 0.9% 50 ml @ 100 mls/hr IVPB ONCE PRN Rx# :[id number] Hemodialysis 700 Output: Hemodialysis 1700 Other: # Voids 2 - Exam GENERAL: The patient is alert and oriented x3, not in any acute distress. Well developed, well nourished. HEENT: Pupils are round and equally reacting to light. EOMI. No scleral icterus. No conjunctival pallor. Normocephalic, atraumatic. No pharyngeal erythema. No thyromegaly. CARDIOVASCULAR: S1 and S2 present. No murmurs, rubs, or gallops. PULMONARY: Chest is clear to auscultation, no wheezing . no crackles. ABDOMEN: Soft, nontender, nondistended, normoactive bowel sounds. No palpable organomegaly. -MUSCULOSKELETAL: No joint swelling or deformity. Left hip area tenderness, limited movement of the left lower extremity because of hip pain EXTREMITIES: No cyanosis, clubbing, or pedal edema. NEUROLOGICAL: Gross neurological examination did not reveal any focal deficits. SKIN: No rashes. no petechiae. - Labs CBC & Chem 7: 09/09/22 19:34 09/09/22 13:15 Labs: Abnormal Lab Results - Last 24 Hours (Table) 09/08/22 09/08/22 09/08/22 Range/Units 16:01 18:49 22:05 Sodium 136 L (137-145) mmol/L Chloride 96 L (98-107) mmol/L Carbon Dioxide 33 H (22-30) mmol/L BUN (9-20) mg/dL Creatinine 2.42 H (0.66-1.25) mg/dL Glucose (74-99) mg/dL POC Glucose (mg/dL) 177 H (70-110) mg/dL Hep Bs Antibody Reactive A (Nonreactive) 09/09/22 09/09/22 09/09/22 Range/Units 05:40 10:56 12:12 Sodium 133 L (137-145) mmol/L Chloride 96 L (98-107) mmol/L Carbon Dioxide 21 L (22-30) mmol/L BUN 35 H (9-20) mg/dL Creatinine 3.91 H (0.66-1.25) mg/dL Glucose 279 H (74-99) mg/dL POC Glucose (mg/dL) 213 H 257 H (70-110) mg/dL Hep Bs Antibody (Nonreactive) 09/09/22 Range/Units 13:15 Sodium 134 L (137-145) mmol/L Chloride 96 L (98-107) mmol/L Carbon Dioxide (22-30) mmol/L BUN 37 H (9-20) mg/dL Creatinine 3.95 H (0.66-1.25) mg/dL Glucose 286 H (74-99) mg/dL POC Glucose (mg/dL) (70-110) mg/dL Hep Bs Antibody (Nonreactive) Assessment and Plan Assessment: subacute Non-traumatic nondisplaced proximal femoral neck fracture End stage renal disease on hemodialysis Diabetes mellitus, with hyperglycemia Hypertension History of osteoarthritis Plan: Orthopedic primary team on the case for surgical fixation pt will be at risk from surgery , but there is no absolute contra-indication to proceed with surgery from medical perspective nephrology consult and continue dialysis per their recommendation Pain management Continue with beta vicki Follow-up pathology report of the hip surgery recommend patient follow up with pulmonary service upon discharge, contact information for Dr. Sharp is provided in the discharge instructions already. Patient informed and he agrees patient informed of this recommendation, also with the risk of cancer and he verbalized understanding and acceptance. Labs and medication were reviewed.. Continue same treatment. Continue with symptomatic treatment. Resume home medication. Monitor labs and vitals. DVT and GI prophylaxis. Further recommendations as per clinical course of the patient DVT prophylaxis: Deferred to surgery team GI Prophylaxis: Pepcid PT/OT: Pending Prognosis is guarded Thank you for consulting us and we will follow up
[2022-09-09] MEDS: SENNOSIDES-DOCUSATE SODIUM 1 EACH TAB PO SCH (21:16)
[2022-09-09] MEDS: FAMOTIDINE 20 MG/2 ML VIAL IV SCH (21:16)
[2022-09-09] MEDS: ASPIRIN 81 MG PO SCH (21:16)
[2022-09-09 21:22] LABS: Glucose,Whole Blood 218 mg/dL (70-110)
[2022-09-10 01:54] LABS: Glucose,Whole Blood 325 mg/dL (70-110)
[2022-09-10 06:12] LABS: Glucose,Whole Blood 406 mg/dL (70-110)
[2022-09-10] MEDS ORDERED: DEXTROSE 50% SYRINGE 50 ML IVP PRN ×2 (06:34)
[2022-09-10] MEDS: CALCIUM ACETATE 667 MG TAB PO SCH ×3 (06:58→16:57)
[2022-09-10] MEDS: INSULIN ASPART (NovoLOG) 100 UNIT/ML VIAL SQ SCH ×6 (06:58→21:16)
[2022-09-10] MEDS ORDERED: INSULIN DETEMIR (LEVEMIR) 100 UNIT/ML SYR SQ SCH (07:00)
[2022-09-10] MEDS: carvediloL 6.25 MG TAB PO SCH ×2 (08:12→16:57)
[2022-09-10] MEDS: ASPIRIN 81 MG PO SCH ×2 (08:12→21:21)
[2022-09-10] MEDS: ATORVASTATIN 20 MG TAB PO SCH (08:12)
[2022-09-10] MEDS: FOLIC ACID-VIT B COMPLEX-VIT C 1 CAP PO SCH (08:12)
--- NOTE | 2022-09-10 08:47 | P.PN ---
Subjective Progress Note Date: 09/10/22 Plan left hip significantly improve this morning. He states the pain he was having before surgery is gone. He is able to get up and walk and get into a chair. His only complaint this morning is with his blood sugar was significantly elevated. Objective - Vital Signs Vital signs: Vital Signs Temp 97.6 F 09/10/22 07:25 Pulse 80 09/10/22 07:25 Resp 18 09/10/22 07:25 BP 145/51 09/10/22 07:25 Pulse Ox 97 09/10/22 07:25 FiO2 Intake & Output 09/09/22 09/10/22 09/10/22 18:59 06:59 18:59 Intake Total 451 Output Total 100 Balance 351 Intake: IV 401 Intake, IV Titration 50 Amount ceFAZolin 2 gm In Sodium 50 Chloride 0.9% 50 ml @ 100 mls/hr IVPB ONCE PRN Rx# :[id number] Output: Estimated Blood Loss 100 - Exam The patient is sitting up at bedside chair. He is in no apparent distress. A focused exam the left lower extremity was conducted. On inspection is clean- appearing dressing over the left hip. His thigh is soft. Femoral nerve function is intact is able to actively extend his knee. Distally motor and sensory function are intact in the foot. - Labs CBC & Chem 7: 09/09/22 19:34 09/09/22 13:15 Labs: Abnormal Lab Results - Last 24 Hours (Table) 09/09/22 09/09/22 09/09/22 Range/Units 10:56 12:12 13:15 WBC (3.8-10.6) k/uL RBC (4.30-5.90) m/uL Hgb (13.0-17.5) gm/dL MCV (80.0-100.0) fL Neutrophils # (1.3-7.7) k/uL Lymphocytes # (1.0-4.8) k/uL Sodium 133 L 134 L (137-145) mmol/L Chloride 96 L 96 L (98-107) mmol/L Carbon Dioxide 21 L (22-30) mmol/L BUN 35 H 37 H (9-20) mg/dL Creatinine 3.91 H 3.95 H (0.66-1.25) mg/dL Glucose 279 H 286 H (74-99) mg/dL POC Glucose (mg/dL) 257 H (70-110) mg/dL 09/09/22 09/09/22 09/09/22 Range/Units 16:54 19:34 21:21 WBC 12.7 H (3.8-10.6) k/uL RBC 3.87 L (4.30-5.90) m/uL Hgb 12.6 L (13.0-17.5) gm/dL MCV 100.9 H (80.0-100.0) fL Neutrophils # 11.4 H (1.3-7.7) k/uL Lymphocytes # 0.9 L (1.0-4.8) k/uL Sodium (137-145) mmol/L Chloride (98-107) mmol/L Carbon Dioxide (22-30) mmol/L BUN (9-20) mg/dL Creatinine (0.66-1.25) mg/dL Glucose (74-99) mg/dL POC Glucose (mg/dL) 180 H 218 H (70-110) mg/dL 09/10/22 09/10/22 Range/Units 01:52 06:10 WBC (3.8-10.6) k/uL RBC (4.30-5.90) m/uL Hgb (13.0-17.5) gm/dL MCV (80.0-100.0) fL Neutrophils # (1.3-7.7) k/uL Lymphocytes # (1.0-4.8) k/uL Sodium (137-145) mmol/L Chloride (98-107) mmol/L Carbon Dioxide (22-30) mmol/L BUN (9-20) mg/dL Creatinine (0.66-1.25) mg/dL Glucose (74-99) mg/dL POC Glucose (mg/dL) 325 H 406 H (70-110) mg/dL Assessment and Plan Assessment: Postoperative day #1 status post left hip hemiarthroplasty for left subcapital femoral neck fracture, likely acute End-stage renal failure on dialysis Type 2 diabetes Plan: 1. Weight bear as tolerated left lower extremity, up with assistance and a walker, no hip precautions 2. DVT prophylaxis with aspirin 3. Leave surgical dressing in place 4. Discharge planning in process
[2022-09-10 09:24] LABS: Glucose,Whole Blood 531 mg/dL (70-110)
[2022-09-10] MEDS: INSULIN DETEMIR (LEVEMIR) 100 UNIT/ML SYR SQ SCH ×2 (10:16→21:16)
[2022-09-10 11:23] LABS: Glucose,Whole Blood 337 mg/dL (70-110)
[2022-09-10] MEDS ORDERED: BENZOCAINE/MENTHOL LOZENG 1 EACH LOZENGE MUCOUS MEM PRN (15:07)
--- NOTE | 2022-09-10 15:07 | P.PN ---
Subjective 72 years old male with multiple medical problems including Diabetes Mellitus, Hyperlipidemia, Hypertension, Osteoarthritis , Dialysis ,. He is a patient of Dr. Pradhan pt c/o increased left hip pain.x 1 weeks, pt denies any injury or trauma or falling however he has difficulty walking patient denies any other symptoms. No cardiac, GI urinary or pulmonary symptoms. Patient does not use oxygen at home Patient denies smoking, he smoked very long long time ago. He quit drinking 2 years ago, no illicit drugs He uses an insulin pump for diabetes and follow-up with Dr. Gay (! Unknown spelling) as an outpatient from endocrinology service vitals are stable and patient is afebrile. Patient CBC showed mild anemia 11.9, rest of CBC, INR is unremarkable. Report 0.8, potassium 5.2. glucose slightly elevated to 287, 319, 72. Enzymes are not elevated. EKG showed normal sinus rhythm at [address]-T changes. chest x-ray: Right mid lung 6 mm nodule, recommend further evaluation with CAT scan Right hip CAT scan subacute appearing nondisplaced proximal femoral neck fracture with sclerosis Lumbar x-ray showing no acute fracture or dislocation degenerative disease which is mild 09/09/2022 Patient lying in bed comfortable, he denies chest pain dyspnea No other new complaint Patient is still complaining from left hip pain and he cannot walk because of pain in the left hip area Patient will go for left hip hemiarthroplasty procedure later on today. [employer] team on the case for hemodialysis. We will keep monitoring Patient Proceeded to left hip surgery correction procedure from medical perspective although he has some risk. Patient already informed about long nodule in the need to follow up as an out patient, he verbalized understanding and acceptance 09/10 Eager to go home Lozenges ordered Insulin Adjusted Objective - Vital Signs Vital signs: Vital Signs Temp 97.5 F L 09/10/22 14:23 Pulse 62 09/10/22 14:23 Resp 18 09/10/22 14:23 BP 124/51 09/10/22 14:23 Pulse Ox 98 09/10/22 14:00 FiO2 Intake & Output 09/09/22 09/10/22 09/10/22 18:59 06:59 18:59 Intake Total 451 500 Output Total 100 2500 Balance 351 -2000 Intake: IV 401 Intake, IV Titration 50 Amount ceFAZolin 2 gm In Sodium 50 Chloride 0.9% 50 ml @ 100 mls/hr IVPB ONCE PRN Rx# :[id number] Hemodialysis 500 Output: Hemodialysis 2500 Estimated Blood Loss 100 - Exam GENERAL: The patient is alert and oriented x3, not in any acute distress. Well developed, well nourished. HEENT: Pupils are round and equally reacting to light. EOMI. No scleral icterus. No conjunctival pallor. Normocephalic, atraumatic. No pharyngeal erythema. No thyromegaly. CARDIOVASCULAR: S1 and S2 present. No murmurs, rubs, or gallops. PULMONARY: Chest is clear to auscultation, no wheezing . no crackles. ABDOMEN: Soft, nontender, nondistended, normoactive bowel sounds. No palpable organomegaly. MUSCULOSKELETAL: . Left hip area tenderness, limited movement of the left lower extremity because of hip pain EXTREMITIES: No cyanosis, clubbing, or pedal edema. NEUROLOGICAL: Gross neurological examination did not reveal any focal deficits. SKIN: No rashes. no petechiae. - Labs CBC & Chem 7: 09/09/22 19:34 09/09/22 13:15 Labs: Abnormal Lab Results - Last 24 Hours (Table) 09/09/22 09/09/22 09/09/22 Range/Units 16:54 19:34 21:21 WBC 12.7 H (3.8-10.6) k/uL RBC 3.87 L (4.30-5.90) m/uL Hgb 12.6 L (13.0-17.5) gm/dL MCV 100.9 H (80.0-100.0) fL Neutrophils # 11.4 H (1.3-7.7) k/uL Lymphocytes # 0.9 L (1.0-4.8) k/uL POC Glucose (mg/dL) 180 H 218 H (70-110) mg/dL 09/10/22 09/10/22 09/10/22 Range/Units 01:52 06:10 09:21 WBC (3.8-10.6) k/uL RBC (4.30-5.90) m/uL Hgb (13.0-17.5) gm/dL MCV (80.0-100.0) fL Neutrophils # (1.3-7.7) k/uL Lymphocytes # (1.0-4.8) k/uL POC Glucose (mg/dL) 325 H 406 H 531 H (70-110) mg/dL 09/10/22 Range/Units 11:22 WBC (3.8-10.6) k/uL RBC (4.30-5.90) m/uL Hgb (13.0-17.5) gm/dL MCV (80.0-100.0) fL Neutrophils # (1.3-7.7) k/uL Lymphocytes # (1.0-4.8) k/uL POC Glucose (mg/dL) 337 H (70-110) mg/dL Assessment and Plan Assessment: * acute, left subcapital femoral neck fracture * End stage renal disease on hemodialysis * Diabetes mellitus, with hyperglycemia with Insulin PUMP * Hypertension * History of osteoarthritis * Pulmonary nodule Plan: * Orthopedic primary team on the case for surgical fixation s/p Left direct anterior hip hemiarthroplasty * nephrology consult and continue dialysis per their recommendation * Pain management * contact information for Dr. Sharp is provided in the discharge instructions already. Patient informed and he agrees patient informed of this re commendation, also with the risk of cancer and he verbalized understanding and acceptance. * Labs and medication were reviewed. * DVT prophylaxis: Deferred to surgery team * GI Prophylaxis: Pepcid
--- NOTE | 2022-09-10 15:36 | P.PN ---
Subjective Progress Note Date: 09/10/22 Follow-up for ESRD. Seen during dialysis, tolerating well. Objective - Vital Signs Vital signs: Vital Signs Temp 97.5 F L 09/10/22 14:23 Pulse 62 09/10/22 14:23 Resp 18 09/10/22 14:23 BP 124/51 09/10/22 14:23 Pulse Ox 98 09/10/22 14:00 FiO2 Intake & Output 09/09/22 09/10/22 09/10/22 18:59 06:59 18:59 Intake Total 451 500 Output Total 100 2500 Balance 351 -2000 Intake: IV 401 Intake, IV Titration 50 Amount ceFAZolin 2 gm In Sodium 50 Chloride 0.9% 50 ml @ 100 mls/hr IVPB ONCE PRN Rx# :[id number] Hemodialysis 500 Output: Hemodialysis 2500 Estimated Blood Loss 100 - Exam No acute distress S1-S2 heard Decreased breath sounds Abdomen soft No edema - Labs CBC & Chem 7: 09/09/22 19:34 09/09/22 13:15 Labs: Abnormal Lab Results - Last 24 Hours (Table) 09/09/22 09/09/22 09/09/22 Range/Units 16:54 19:34 21:21 WBC 12.7 H (3.8-10.6) k/uL RBC 3.87 L (4.30-5.90) m/uL Hgb 12.6 L (13.0-17.5) gm/dL MCV 100.9 H (80.0-100.0) fL Neutrophils # 11.4 H (1.3-7.7) k/uL Lymphocytes # 0.9 L (1.0-4.8) k/uL POC Glucose (mg/dL) 180 H 218 H (70-110) mg/dL 09/10/22 09/10/22 09/10/22 Range/Units 01:52 06:10 09:21 WBC (3.8-10.6) k/uL RBC (4.30-5.90) m/uL Hgb (13.0-17.5) gm/dL MCV (80.0-100.0) fL Neutrophils # (1.3-7.7) k/uL Lymphocytes # (1.0-4.8) k/uL POC Glucose (mg/dL) 325 H 406 H 531 H (70-110) mg/dL 09/10/22 Range/Units 11:22 WBC (3.8-10.6) k/uL RBC (4.30-5.90) m/uL Hgb (13.0-17.5) gm/dL MCV (80.0-100.0) fL Neutrophils # (1.3-7.7) k/uL Lymphocytes # (1.0-4.8) k/uL POC Glucose (mg/dL) 337 H (70-110) mg/dL Assessment and Plan Assessment: #1 ESRD, TTS, left upper arm aVF #2 left femoral neck fracture status post hemiarthroplasty. #3 hypertension with ESRD #4 anemia with ESRD #5 metabolic bone disease Plan: #1 hemodialysis TTS schedule #2 ESRD medications
[2022-09-10 16:22] LABS: Glucose,Whole Blood 55 mg/dL (70-110)
[2022-09-10 16:42] LABS: Glucose,Whole Blood 50 mg/dL (70-110)
[2022-09-10 17:01] LABS: Glucose,Whole Blood 75 mg/dL (70-110)
[2022-09-10 21:05] LABS: Glucose,Whole Blood 94 mg/dL (70-110)
[2022-09-10] MEDS: SENNOSIDES-DOCUSATE SODIUM 1 EACH TAB PO SCH (21:17)
[2022-09-10] MEDS: FAMOTIDINE 20 MG TAB PO SCH (21:21)
[2022-09-10] MEDS: HYDROcodone/APAP 5-325MG 1 EACH TAB PO PRN (21:22)
[2022-09-11 06:28] LABS: Glucose,Whole Blood 245 mg/dL (70-110)
[2022-09-11] MEDS: CALCIUM ACETATE 667 MG TAB PO SCH ×3 (06:42→16:45)
[2022-09-11] MEDS: INSULIN DETEMIR (LEVEMIR) 100 UNIT/ML SYR SQ SCH ×2 (06:43→21:37)
[2022-09-11] MEDS: INSULIN ASPART (NovoLOG) 100 UNIT/ML VIAL SQ SCH ×7 (06:43→21:38)
--- NOTE | 2022-09-11 07:35 | P.PN ---
Progress Note - Text Progress Note Date: 09/11/22 Agree with above EXCEPT use of abductor pillow. A DA approach was used an abductor pillow is not indicated. If one is present it can be discontinued, otherwise continue plan of care as previously documented. Orthopedics: History of present illness: Patient is a very pleasant 72-year-old male who is seen and examined at bedside for follow evaluation of his left hip. He is status post left hip hemiarthroplasty performed on 09/09/2022. Is currently resting in bed comfortably with an abductor pillow intact. He states his left hip pain has been adequately controlled. He is looking forward to working further with physical therapy. Patient states he would like to be discharged home rather than to a rehabilitation facility. Patient is known to be on dialysis. He states he did have dialysis yesterday. He states he has chronic low urine output. He is currently eating without any significant difficulty. Patient has been seen by medicine and nephrology. Physical Exam Hip Hemiarthroplasty: Status post surgical day number 2 Patient is examined sitting in bed Patient is awake, alert, and oriented 3 Vital signs stable Good chest excursion with deep inspiration and expiration No signs or symptoms of DVT; no calf pain Lower extremity cuffs in place bilaterally Abductor pillow intact Dressing of the left hip is clean, dry, and intact; no erythema, purulence, or signs of infection No significant pain with palpation over the surgical site Dorsiflexion, plantarflexion, and extensor hallucis longus positive sustained on the left Neurovascularly intact bilateral lower extremities Assessment: Status post left hip hemiarthroplasty for left femoral neck fracture Left hip pain Status post fall End-stage renal disease Chronic kidney disease Hypertension Diabetes mellitus History of right hip hemiarthroplasty Plan: 1. Patient may continue to weight-bear as tolerated on the left lower extremity; patient may work with physical therapy to increase mobility and ambu lation 2. Continue pain control 3. Abductor pillow to remain in place at all times except while working with therapy 4. Medicine to continue following the patient for their other medical diagnoses 5. Continue with with anticoagulation therapy aspirin 5. We'll continue to follow the patient 6. Patient will most likely remain in the hospital over the weekend with plans to discharge home versus a rehabilitation facility this coming 09/12/2022 7. Patient can follow-up with Dr. Ken or Jennifer Guadalupe PA-C at [facility] in 2 weeks following discharge
[2022-09-11] MEDS: ATORVASTATIN 20 MG TAB PO SCH (08:54)
[2022-09-11] MEDS: ASPIRIN 81 MG PO SCH ×2 (08:55→21:37)
[2022-09-11] MEDS: carvediloL 6.25 MG TAB PO SCH ×2 (08:55→16:45)
[2022-09-11] MEDS: FOLIC ACID-VIT B COMPLEX-VIT C 1 CAP PO SCH (08:57)
[2022-09-11 11:18] LABS: Glucose,Whole Blood 195 mg/dL (70-110)
--- NOTE | 2022-09-11 14:00 | P.PN ---
Subjective Progress Note Date: 09/11/22 72 years old male with multiple medical problems including Diabetes Mellitus, Hyperlipidemia, Hypertension, Osteoarthritis , Dialysis . He is a patient of Dr. Pradhan pt c/o increased left hip pain.x 1 weeks, pt denies any injury or trauma or falling however he has difficulty walking patient denies any other symptoms. No cardiac, GI urinary or pulmonary symptoms. Patient does not use oxygen at home Patient denies smoking, he smoked very long long time ago. He quit drinking 2 years ago, no illicit drugs He uses an insulin pump for diabetes and follow-up with Dr. Gay (! Unknown spelling) as an outpatient from endocrinology service vitals are stable and patient is afebrile. Patient CBC showed mild anemia 11.9, rest of CBC, INR is unremarkable. Report 0.8, potassium 5.2. glucose slightly elevated to 287, 319, 72. Enzymes are not elevated. EKG showed normal sinus rhythm at [address]-T changes. chest x-ray: Right mid lung 6 mm nodule, recommend further evaluation with CAT scan Right hip CAT scan subacute appearing nondisplaced proximal femoral neck fractu re with sclerosis Lumbar x-ray showing no acute fracture or dislocation degenerative disease which is mild 09/09/2022 Patient lying in bed comfortable, he denies chest pain dyspnea No other new complaint Patient is still complaining from left hip pain and he cannot walk because of pain in the left hip area Patient will go for left hip hemiarthroplasty procedure later on today. Owner team on the case for hemodialysis. We will keep monitoring Patient Proceeded to left hip surgery correction procedure from medical perspective although he has some risk. Patient already informed about long nodule in the need to follow up as an outpatient, he verbalized understanding and acceptance 09/10 Eager to go home Lozenges ordered Insulin Adjusted 09/11 In a better Mood Ortho Primary, DC Planing per Ortho Objective - Vital Signs Vital signs: Vital Signs Temp 98.0 F 09/11/22 13:12 Pulse 74 09/11/22 13:12 Resp 18 09/11/22 13:12 BP 121/45 09/11/22 13:12 Pulse Ox 97 09/11/22 13:12 FiO2 Intake & Output 09/10/22 09/11/22 09/11/22 18:59 06:59 18:59 Intake Total 500 Output Total 2500 500 Balance -1999 -500 Intake: Hemodialysis 500 Output: Urine 500 Hemodialysis 2500 Other: # Voids 3 - Exam GENERAL: The patient is alert and oriented x3, not in any acute distress. Well developed, well nourished. HEENT: Pupils are round and equally reacting to light. EOMI. No scleral icterus. No conjunctival pallor. Normocephalic, atraumatic. No pharyngeal erythema. No thyromegaly. CARDIOVASCULAR: S1 and S2 present. No murmurs, rubs, or gallops. PULMONARY: Chest is clear to auscultation, no wheezing . no crackles. ABDOMEN: Soft, nontender, nondistended, normoactive bowel sounds. No palpable organomegaly. MUSCULOSKELETAL: . Left hip area tenderness, limited movement of the left lower extremity because of hip pain EXTREMITIES: No cyanosis, clubbing, or pedal edema. NEUROLOGICAL: Gross neurological examination did not reveal any focal deficits. SKIN: No rashes. no petechiae. - Labs CBC & Chem 7: 09/09/22 19:34 09/09/22 13:15 Labs: Abnormal Lab Results - Last 24 Hours (Table) 09/09/22 09/10/22 09/10/22 Range/Units 19:34 16:21 16:40 POC Glucose (mg/dL) 55 L 50 L (70-110) mg/dL Hemoglobin A1c 6.8 H % 09/11/22 09/11/22 Range/Units 06:27 11:17 POC Glucose (mg/dL) 245 H 195 H (70-110) mg/dL Hemoglobin A1c % Assessment and Plan Assessment: * Acute, left subcapital femoral neck fracture * End stage renal disease on hemodialysis * Diabetes mellitus, with hyperglycemia with Insulin PUMP * Hypertension * History of osteoarthritis * Pulmonary nodule Plan: * Orthopedic primary team on the case for surgical fixation s/p Left direct anterior hip hemiarthroplasty * nephrology consult and continue dialysis per their recommendation * Pain management * Upon DC COntinue Insulin Pump * While in patient continue Levenir and Novolog * contact information for Dr. Sharp is provided in the discharge instructions already. Patient informed and he agrees patient informed of this recommendation, also with the risk of cancer and he verbalized understanding and acceptance. * Labs and medication were reviewed. * DVT prophylaxis: Deferred to surgery team * GI Prophylaxis: Pepcid
--- NOTE | 2022-09-11 15:35 | P.PN ---
Subjective Progress Note Date: 09/11/22 Follow-up for ESRD. Objective - Vital Signs Vital signs: Vital Signs Temp 98.0 F 09/11/22 13:12 Pulse 74 09/11/22 13:12 Resp 18 09/11/22 13:12 BP 121/45 09/11/22 13:12 Pulse Ox 97 09/11/22 13:12 FiO2 Intake & Output 09/10/22 09/11/22 09/11/22 18:59 06:59 18:59 Intake Total 500 Output Total 2500 500 Balance -2000 -500 Intake: Hemodialysis 500 Output: Urine 500 Hemodialysis 2500 Other: # Voids 3 - Exam No acute distress S1-S2 heard Decreased breath sounds Abdomen soft No edema - Labs CBC & Chem 7: 09/09/22 19:34 09/09/22 13:15 Labs: Abnormal Lab Results - Last 24 Hours (Table) 09/09/22 09/10/22 09/10/22 Range/Units 19:34 16:21 16:40 POC Glucose (mg/dL) 55 L 50 L (70-110) mg/dL Hemoglobin A1c 6.8 H % 09/11/22 09/11/22 Range/Units 06:27 11:17 POC Glucose (mg/dL) 245 H 195 H (70-110) mg/dL Hemoglobin A1c % Assessment and Plan Assessment: #1 ESRD, TTS, left upper arm aVF #2 left femoral neck fracture status post hemiarthroplasty. #3 hypertension with ESRD #4 anemia with ESRD #5 metabolic bone disease Plan: #1 hemodialysis TTS schedule #2 ESRD medications
[2022-09-11 16:31] LABS: Glucose,Whole Blood 126 mg/dL (70-110)
[2022-09-11] MEDS: HYDROcodone/APAP 5-325MG 1 EACH TAB PO PRN (16:45)
[2022-09-11 17:36] LABS: Basophils % (A) 0 %; Eosinophils # (A) 0.5 k/uL (0-0.7); Eosinophils % (A) 5 %; HCT 35.3 % (39.0-53.0); HGB 11.5 gm/dL (13.0-17.5); Lymphocytes # (A) 1.4 k/uL (1.0-4.8); Lymphocytes % (A) 15 %; MCH 32.5 pg (25.0-35.0); MCHC 32.7 g/dL (31.0-37.0); MCV 99.4 fL (80.0-100.0); Mean Platelet Volume 7.9; Monocytes # (A) 0.8 k/uL (0-1.0); Monocytes % (A) 9 %; Neutrophils # (A) 6.3 k/uL (1.3-7.7); Neutrophils % (A) 69 %; Platelet Count 269 k/uL (150-450); RBC 3.56 m/uL (4.30-5.90); RDW 13.3 % (11.5-15.5); WBC 9.2 k/uL (3.8-10.6)
[2022-09-11 20:45] LABS: Glucose,Whole Blood 264 mg/dL (70-110)
[2022-09-11] MEDS: FAMOTIDINE 20 MG TAB PO SCH (21:37)
[2022-09-11] MEDS: SENNOSIDES-DOCUSATE SODIUM 1 EACH TAB PO SCH (21:38)
[2022-09-12 06:26] LABS: Glucose,Whole Blood 81 mg/dL (70-110)
[2022-09-12] MEDS: INSULIN DETEMIR (LEVEMIR) 100 UNIT/ML SYR SQ SCH (06:51)
[2022-09-12] MEDS: INSULIN ASPART (NovoLOG) 100 UNIT/ML VIAL SQ SCH ×4 (06:51→12:17)
[2022-09-12] MEDS: CALCIUM ACETATE 667 MG TAB PO SCH ×2 (06:55→12:17)
[2022-09-12] MEDS: carvediloL 6.25 MG TAB PO SCH (08:21)
[2022-09-12] MEDS: ASPIRIN 81 MG PO SCH (08:21)
[2022-09-12] MEDS: ATORVASTATIN 20 MG TAB PO SCH (08:21)
[2022-09-12 08:23] VITALS: TEMP 98.2
[2022-09-12 08:53] LABS: HCT 36.9 % (39.0-53.0); HGB 11.9 gm/dL (13.0-17.5); MCH 32.7 pg (25.0-35.0); MCHC 32.3 g/dL (31.0-37.0); MCV 101.5 fL (80.0-100.0); Macrocytosis Slight; Platelet Count 273 k/uL (150-450); RBC 3.64 m/uL (4.30-5.90); RDW 13.1 % (11.5-15.5); WBC 8.3 k/uL (3.8-10.6)
[2022-09-12] MEDS: FOLIC ACID-VIT B COMPLEX-VIT C 1 CAP PO SCH (08:57)
[2022-09-12 09:14] LABS: African American GFR (CKD) 10 (>60 ml/min/1.73 sqM); Anion Gap 11 mmol/L; Blood Urea Nitrogen 62 mg/dL (9-20); Calcium 7.8 mg/dL (8.4-10.2); Carbon Dioxide 30 mmol/L (22-30); Chloride 91 mmol/L (98-107); Glucose 79 mg/dL (74-99); Non-African American GFR(CKD) 9 (>60 ml/min/1.73 sqM); Potassium 4.4 mmol/L (3.5-5.1); Sodium 132 mmol/L (137-145)
[2022-09-12 11:13] LABS: Glucose,Whole Blood 302 mg/dL (70-110)
--- NOTE | 2022-09-12 11:32 | P.PN ---
Subjective Patient is seen for follow-up for end-stage renal disease. No significant complaints today Scheduled for hemodialysis in a.m. Objective - Vital Signs Vital signs: Vital Signs Temp 98.2 F 09/12/22 07:24 Pulse 67 09/12/22 07:24 Resp 17 09/12/22 07:24 BP 144/70 09/12/22 07:24 Pulse Ox 97 09/12/22 09:02 FiO2 Intake & Output 09/11/22 09/12/22 09/12/22 18:59 06:59 18:59 Other: # Voids 0 400 - Exam Awake, comfortable, no acute distress Examination of the heart S1 and S2 Examination of the lungs bilateral breath sounds are heard Abdomen is soft nontender Examination lower extremities shows no evidence of edema - Labs CBC & Chem 7: 09/12/22 07:04 09/12/22 07:04 Labs: Abnormal Lab Results - Last 24 Hours (Table) 09/11/22 09/11/22 09/11/22 Range/Units 16:30 17:15 20:44 RBC 3.56 L (4.30-5.90) m/uL Hgb 11.5 L (13.0-17.5) gm/dL Hct 35.3 L (39.0-53.0) % MCV (80.0-100.0) fL Sodium (137-145) mmol/L Chloride (98-107) mmol/L BUN (9-20) mg/dL Creatinine (0.66-1.25) mg/dL POC Glucose (mg/dL) 126 H 264 H (70-110) mg/dL Calcium (8.4-10.2) mg/dL 09/12/22 09/12/22 09/12/22 Range/Units 07:04 07:04 11:11 RBC 3.64 L (4.30-5.90) m/uL Hgb 11.9 L (13.0-17.5) gm/dL Hct 36.9 L (39.0-53.0) % MCV 101.5 H (80.0-100.0) fL Sodium 132 L (137-145) mmol/L Chloride 91 L (98-107) mmol/L BUN 62 H (9-20) mg/dL Creatinine 5.96 H (0.66-1.25) mg/dL POC Glucose (mg/dL) 302 H (70-110) mg/dL Calcium 7.8 L (8.4-10.2) mg/dL Assessment and Plan Assessment: 1. End-stage renal disease on hemodialysis on a TTS schedule via left arm AV fistula 2. Left femoral neck fracture status post left hip hemiarthroplasty 3. Hypertension with end-stage renal disease 4. CK D mineral bone disorder Plan: Hemodialysis in a.m.
--- NOTE | 2022-09-12 12:11 | P.DS ---
Providers Date of admission: 09/08/22 16:17 Expected date of discharge: 09/12/22 Attending physician: Helder Ken Consults: 09/07/22 19:28 Consult Physician Urgent Consulting Provider: Jona Flores Consult Reason/Comments: Renal failure on dialysis Do you want consulting provider notified?: Yes Consult Physician Urgent Consulting Provider: Sandra Palm Consult Reason/Comments: Medical management, surgical clearance Do you want consulting provider notified?: Yes Primary care physician: [facility] Course: This patient is a 72-year-old male who presented to the emergency department with left hip pain. X-rays revealed a left femoral neck fracture, which was confirmed with MRI. Patient was admitted under the care on Dr. Ken for surgical intervention with a consult placed an internal medicine and nephrology for preoperative medical clearance. The procedure was performed without complication or sequelae. Vital signs and labs are stable on postoperative day #3. Patient is examined bedside this morning with Dr. Ken. He states the pain in his left hip is well controlled at this time. Patient has worked with physical therapy and is ambulating with a walker. He has passed physical therapy to return home. Per nursing, he is refusing all home health care. No new complaints the day of discharge. On examination, patient is sitting up in bed in no apparent distress. He is alert and answers questions appropriately. On inspection of the left hip, there is a clean, dry, intact surgical dressing in place. No bleeding or drainage through the dressing. Motor and sensory function is intact of the left lower extremity. Femoral nerve function intact. Left lower extremity warm and well perfused. Calf is nontender. Patient is discharged home today, pending medical clearance. He is refusing home health care at this time. Please see med rec for accurate list of discharge medications. Patient Condition at Discharge: Stable Plan - Discharge Summary Discharge Rx Participant: No New Discharge Prescriptions: New HYDROcodone/APAP 5-325MG [Schuyler 5-325] 1 - 2 tab PO Q6HR PRN 7 Days #28 tab PRN Reason: Pain Aspirin 81 mg PO BID 30 Days #60 tab Docusate [Colace] 100 mg PO BID #60 capsule No Action Insulin Aspart (For Pump) [NovoLOG (For Pump)] 0.01 unit SQ-PUMP CONTINUOUS carvediloL [Coreg] 6.25 mg PO BID Renavite 1 tab PO DAILY sitaGLIPtin [Januvia] 50 mg PO DAILY Calcium Acetate [Phoslo] 667 mg PO TID-W/MEALS Atorvastatin [Lipitor] 20 mg PO DAILY Glucagon [Gvoke Pfs 1-Pack Syringe] 1 mg SQ DIRECTED PRN PRN Reason: Blood Sugar - Low Discharge Medication List Insulin Aspart (For Pump) [NovoLOG (For Pump)] 0.01 unit SQ-PUMP CONTINUOUS 12/01/20 [History] carvediloL [Coreg] 6.25 mg PO BID 12/01/20 [History] Renavite 1 tab PO DAILY 04/12/22 [History] Atorvastatin [Lipitor] 20 mg PO DAILY 09/07/22 [History] Calcium Acetate [Phoslo] 667 mg PO TID-W/MEALS 09/07/22 [History] Glucagon [Gvoke Pfs 1-Pack Syringe] 1 mg SQ DIRECTED PRN 09/07/22 [History] sitaGLIPtin [Januvia] 50 mg PO DAILY 09/07/22 [History] Aspirin 81 mg PO BID 30 Days #60 tab 09/12/22 [Rx] Docusate [Colace] 100 mg PO BID #60 capsule 09/12/22 [Rx] HYDROcodone/APAP 5-325MG [Schuyler 5-325] 1 - 2 tab PO Q6HR PRN 7 Days #28 tab 09/12/22 [Rx] Follow up Appointment(s)/Referral(s): Josr Griffiths MD [Primary Care Provider] - 1-2 days Lawrence Sharp DO [Doctor of Osteopathic Medicine] - 2 Weeks (Lungs Dr. for your lung nodule) Helder Ken MD [Medical Doctor] - 2 Weeks (Patient may follow-up with Dr. Ken at [facility] in 2 weeks following discharge. ) Activity/Diet/Wound Care/Special Instructions: 1. Keep Opsite dressing over the left hip until follow-up in the office. 2. Patient may shower with dressing intact over the surgical site of the left hip. 3. Weight-bear as tolerated on the left lower extremity with a walker. 4. Take medications as prescribed. Continue aspirin 81mg twice a day x 4 weeks for blood clot prevention. 5. Any questions or concerns patient may contact [facility] at [phone] Discharge Disposition: HOME WITH HOME HEALTH SERVICES
--- NOTE | 2022-09-12 13:28 | P.PN ---
Subjective Progress Note Date: 09/12/22 72 years old male with multiple medical problems including Diabetes Mellitus, Hyperlipidemia, Hypertension, Osteoarthritis , Dialysis . He is a patient of Dr. Pradhan pt c/o increased left hip pain.x 1 weeks, pt denies any injury or trauma or falling however he has difficulty walking patient denies any other symptoms. No cardiac, GI urinary or pulmonary symptoms. Patient does not use oxygen at home Patient denies smoking, he smoked very long long time ago. He quit drinking 2 years ago, no illicit drugs He uses an insulin pump for diabetes and follow-up with Dr. Gay (! Unknown spelling) as an outpatient from endocrinology service vitals are stable and patient is afebrile. Patient CBC showed mild anemia 11.9, rest of CBC, INR is unremarkable. Report 0.8, potassium 5.2. glucose slightly elevated to 287, 319, 72. Enzymes are not elevated. EKG showed normal sinus rhythm at [address]-T changes. chest x-ray: Right mid lung 6 mm nodule, recommend further evaluation with CAT scan Right hip CAT scan subacute appearing nondisplaced proximal femoral neck fractu re with sclerosis Lumbar x-ray showing no acute fracture or dislocation degenerative disease which is mild 09/09/2022 Patient lying in bed comfortable, he denies chest pain dyspnea No other new complaint Patient is still complaining from left hip pain and he cannot walk because of pain in the left hip area Patient will go for left hip hemiarthroplasty procedure later on today. [employer] team on the case for hemodialysis. We will keep monitoring Patient Proceeded to left hip surgery correction procedure from medical perspective although he has some risk. Patient already informed about long nodule in the need to follow up as an outpatient, he verbalized understanding and acceptance 09/10 Eager to go home Lozenges ordered Insulin Adjusted 09/11 In a better Mood Ortho Primary, DC Planing per Ortho 09/12 Patient okay to discharge, is refusing rehab, once discharged patient will go back on his insulin pump Objective - Vital Signs Vital signs: Vital Signs Temp 98.2 F 09/12/22 07:24 Pulse 67 09/12/22 07:24 Resp 17 09/12/22 07:24 BP 144/70 09/12/22 07:24 Pulse Ox 97 09/12/22 09:02 FiO2 Intake & Output 09/11/22 09/12/22 09/12/22 18:59 06:59 18:59 Other: # Voids 0 400 - Exam GENERAL: The patient is alert and oriented x3, not in any acute distress. Well developed, well nourished. HEENT: Pupils are round and equally reacting to light. EOMI. No scleral icterus. No conjunctival pallor. Normocephalic, atraumatic. No pharyngeal erythema. No thyromegaly. CARDIOVASCULAR: S1 and S2 present. No murmurs, rubs, or gallops. PULMONARY: Chest is clear to auscultation, no wheezing . no crackles. ABDOMEN: Soft, nontender, nondistended, normoactive bowel sounds. No palpable organomegaly. MUSCULOSKELETAL: . Left hip area tenderness, limited movement of the left lower extremity because of hip pain EXTREMITIES: No cyanosis, clubbing, or pedal edema. NEUROLOGICAL: Gross neurological examination did not reveal any focal deficits. SKIN: No rashes. no petechiae. - Labs CBC & Chem 7: 09/12/22 07:04 09/12/22 07:04 Labs: Abnormal Lab Results - Last 24 Hours (Table) 09/11/22 09/11/22 09/11/22 Range/Units 16:30 17:15 20:44 RBC 3.56 L (4.30-5.90) m/uL Hgb 11.5 L (13.0-17.5) gm/dL Hct 35.3 L (39.0-53.0) % MCV (80.0-100.0) fL Sodium (137-145) mmol/L Chloride (98-107) mmol/L BUN (9-20) mg/dL Creatinine (0.66-1.25) mg/dL POC Glucose (mg/dL) 126 H 264 H (70-110) mg/dL Calcium (8.4-10.2) mg/dL 09/12/22 09/12/22 09/12/22 Range/Units 07:04 07:04 11:11 RBC 3.64 L (4.30-5.90) m/uL Hgb 11.9 L (13.0-17.5) gm/dL Hct 36.9 L (39.0-53.0) % MCV 101.5 H (80.0-100.0) fL Sodium 132 L (137-145) mmol/L Chloride 91 L (98-107) mmol/L BUN 62 H (9-20) mg/dL Creatinine 5.96 H (0.66-1.25) mg/dL POC Glucose (mg/dL) 302 H (70-110) mg/dL Calcium 7.8 L (8.4-10.2) mg/dL Assessment and Plan Assessment: * Acute, left subcapital femoral neck fracture * End stage renal disease on hemodialysis * Diabetes mellitus, with hyperglycemia with Insulin PUMP * Hypertension * History of osteoarthritis * Pulmonary nodule Plan: * Orthopedic primary team on the case for surgical fixation s/p Left direct anterior hip hemiarthroplasty * nephrology consult and continue dialysis per their recommendation * Pain management * Upon DC Continue Insulin Pump * While in patient continue Levenir and Novolog * In regard to pulmonary nodule >>Patient informed and he agrees patient informed of this recommendation, also with the risk of cancer and he verbalized understanding and acceptance. * Labs and medication were reviewed. * DVT prophylaxis: Deferred to surgery team *
[2022-09-12 14:06] VITALS: BP 121/58; PULSE 72; RESP 16
== END 2022-09-12 14:00 | disposition home or self-care (01) | DRG 521 ==
LOC: EC 16:32 → 4SSUR 19:28 → OBSVTOIN 09-08 16:17 → 4SSUR 09-08 21:56
PROVIDERS: ADMIT Orthopaedic Surgery; ATTEND Orthopaedic Surgery
PROC: 5A1D70Z Performance of Urinary Filtration, Intermittent, Less than 6 Hours Per Day (ICD-10-PCS; 2022-09-07)
PROC: 0SRS019 Replacement of Left Hip Joint, Femoral Surface with Metal Synthetic Substitute, Cemented, Open Approach (ICD-10-PCS; principal; 2022-09-08)
DX: S72.012A Unspecified intracapsular fracture of left femur, initial encounter for closed fracture (principal); N18.6 End stage renal disease; I12.0 Hypertensive chronic kidney disease with stage 5 chronic kidney disease or end stage renal disease; E11.22 Type 2 diabetes mellitus with diabetic chronic kidney disease; E83.9 Disorder of mineral metabolism, unspecified; E11.65 Type 2 diabetes mellitus with hyperglycemia; Z99.2 Dependence on renal dialysis; Z79.4 Long term (current) use of insulin; D63.1 Anemia in chronic kidney disease; E78.5 Hyperlipidemia, unspecified; E87.5 Hyperkalemia; M16.12 Unilateral primary osteoarthritis, left hip; R91.1 Solitary pulmonary nodule; Z79.84 Long term (current) use of oral hypoglycemic drugs; Z79.899 Other long term (current) drug therapy; Z96.41 Presence of insulin pump (external) (internal); Z96.641 Presence of right artificial hip joint; Z85.828 Personal history of other malignant neoplasm of skin; Z87.891 Personal history of nicotine dependence
CPT/HCPCS: 36415; 71046; 72100; 73501; 73521; 80048; 80053; 83036; 85025; 85027; 85610; 85730; 86706; 87340; 90935; 93005; 94760; 96374; 99285